=== PATIENT | female | born 1960 | race Caucasian/White ===

== ENCOUNTER 2020-10-30 12:21 | Outpatient (RCR) | payer OTHER, SELFPAY ==
--- NOTE | 2020-10-30 13:41 | PCPTNOTE ---
Patient:Kary Sheridan Date of :1960 Wheelchair seating assessment Thank you [facility]. The patient has been evaluated for power wheelchair seating and recommendations have been made. Armin from [employer] assisted with the recommendations for the necessary DME. The findings have been scanned into the patient's EMR. Please review, sign, date and return this recognition of care provided. I agree with and certify that the following plan for DME equipment is medically necessary. doctor's signature date
== END 2020-10-31 11:04 | disposition home or self-care (01) ==
LOC: ANHPT 12:21
PROVIDERS: PCP Physician Assistant; Visit Provider Physician Assistant
DX: Z74.09 Other reduced mobility (principal); Z91.81 History of falling
CPT/HCPCS: 97163

== ENCOUNTER 2021-01-02 14:38 | Outpatient (CLI) | payer OTHER, SELFPAY ==
--- NOTE | 2021-01-02 18:24 | WPDPFTINT ---
PFT Procedure Performed PFT Procedure Performed Spirometry with Pre/Post Bronchodilator Plethysmography (Lung Vol) Diffusing Cap (DLCO) Flow Vol Loop PFT Interpretation This is a pulmonary function test with pre and post-bronchodilator spirometry, plethysmography and diffusing capacity. The test was performed and results interpreted in accordance with the 2019 and 2005 ATS/ERS Task Force guidelines respectively using the Global Lung Function Initiative-2012 reference equations. Patient demonstrated good effort and cooperation. Reproducibility criteria were met. The quality of the pre bronchodilator spirometry maneuver was Grade A and post bronchodilator spirometry maneuver was Grade A. Findings: Spirometry: There is decreased maximal expiratory airflow at low lung volumes with a mildly concave expiratory flow tracing. The pre bronchodilator FVC is 1.87 L, 55% predicted. The pre bronchodilator FEV1 is 1.46 L, 55% predicted. The FEV1: FVC ratio 78%. The post bronchodilator FVC is 1.74 L, representing a 7% decrease. The post bronchodilator FEV1 is 1.24 L, representing a 15% decrease. Plethysmography: The total lung capacity is 4.41 L, 82% predicted. The functional residual capacity is 2.64 L, 87% predicted. The residual volume is 2.35 L, 112% predicted. Diffusing capacity: The absolute diffusion capacity is 22.4, 100% predicted. The diffusing capacity corrected for alveolar volume is 4.43, 102% predicted. Impression: There is a combined obstructive and restrictive ventilatory abnormality. There are no guidelines to assign the severity of obstruction and restriction with a combined abnormality. In my opinion, given the mildly concave expiratory flow tracing and normal FEV1: FVC ratio and mild restrictive abnormality I would state there is a mild obstructive abnormality and a mild restrictive abnormality resulting in a moderately severe decreased FEV1. There is no significant improvement after inhaling a single dose of albuterol. The diffusing capacity normal. There are no prior studies for comparison
== END 2021-01-02 14:39 | disposition home or self-care (01) ==
LOC: ANHPFT 14:41
PROVIDERS: PCP Physician Assistant; Visit Provider Physician Assistant
DX: Z87.891 Personal history of nicotine dependence (principal); R94.2 Abnormal results of pulmonary function studies
CPT/HCPCS: 94060; 94726; 94729

== ENCOUNTER 2021-10-31 10:00 | Outpatient (RCR) | payer OTHER, SELFPAY ==
--- NOTE | 2021-10-09 11:47 | PTOPEVAL ---
PHYSICAL THERAPY EVALUATION AND PLAN OF CARE 10-09-21 Thank you for referring Kary Sheridan to [facility], for the diagnosis of fibromyalgia and decreased mobility. She is scheduled to be seen for therapy? 2 x/week for 3 weeks. Please review, sign, date and return this plan of care DAMIEN. I agree with and certify that the following plan of care is medically necessary. Referring Physician Date Attending Provider: SANDRA Zheng Past Medical History Source of Past Medical History Patient Neurological History Hx Other Neurological Disorders Yes: multiple falls and hit her head-stated memory not that good anymore Cardiovascular History Hx Hypercholesterolemia Yes: meds Hx Other Cardiac Disorders Yes: heart covered with scar tissue - issues with circulation & lungs Respiratory History Hx COVID-19 Yes: May 2019-severe case, lasted 4 months,cardiac & respiratory residual effects Hx Other Respiratory Disorders Yes: to have surgery for esophagus- due to repeated closing; smoker Gastrointestinal History Hx Diverticulitis Yes Hx Other Gastrointestinal Disorders Yes: colonoscopy every 9-10 months, due to monitor/ removal tumors Musculoskeletal History Hx Arthritis Yes: back, hips, neck Hx Back Pain Yes Hx Fibromyalgia Yes Hx Scoliosis Yes: neck pain Hx Other Musculoskeletal Disorders Yes: neuropathy of legs Endocrine History Hx Diabetes Yes: new diagnosis, working on meds to control Hx Hypothyroidism Yes: meds HEENT History Hx Cataracts Yes: non operable Hx Macular Degeneration Yes: decreased vision Hx Other HEENT Disorders Yes: wear glasses Other History Hx Cancer Yes: uterine cancer--surgery, no radiation or chemo Hx Other Medical Conditions Yes: obesity, gained 40#, in the past 6 months Evaluation Information Diagnosis fibromyalgia with decreased mobility Onset about 3 yrs ago Subjective Information more weakness and falls with Query Text:As Reported By Patient/ COVID, did not see dr due to Family covid restrictions and illness ; in the past 6 months have had falls ~40 x-when stand up, legs weak and cannot stand; when fall, her brother help
--- NOTE | 2021-10-31 10:50 | PTOPEVAL ---
PHYSICAL THERAPY DISCHARGE 10-31-21 Refer to the clinical summary for her status today, compared to the initial evaluation. Discharge PT at this time; she is to continue with her home exercises and walking as tolerated. Thank you for referring Kary Sheridan to [facility] Please review, sign, date and return this discharge report DAMIEN. I agree with and certify that the following plan of care is medically necessary. Referring Physician Date Attending Provider: SANDRA Zheng Subjective Information Kary reports: have more pain Query Text:As Reported By Patient/ in legs since doing therapy-- Family have to take a hydrocodone every day now; since doing therapy strength of legs is better, arms about the same; fell once since starting therapy, with walking, lost foot and fell down; have been doing exercises at home; to have esophagus surgery in January, still choking on food and pills; and need to have hernia repair; Pain Assessment Pain Scale Pain Scale Used Numeric (1 - 10) Self Report Pain Assessment Bilateral Generalized Reported Pain Level 8 Radicular Pain Location feel like someone took a hammer and smashed her legs Pain Frequency Chronic,Continuous Other Pain Description legs hurt- whole leg, front and back of legs Lowest Pain Intensity 6 Greatest Pain Intensity 10 Gross Lower Extremity Strength functional strength testing: perform in sitting: - hip flexion R x 11 /L x 12 reps - knee extension R to (-35') x 7 /L to (- 30') x 11 reps; - shoulder flexion R to 80' x 9 / L to 60' x 10 reps - elbow flexion/extension- full ROM R x 10/ L x 14 reps - sit to stand with B UE use from her motorized, taller height w/c verbal review of HEP, is doing sitting and standing holding onto counter top--reports doing 7 reps; reinforced increase reps as tolerated; Posture Comments sitting in motorized wheel
== END 2021-11-04 10:19 | disposition home or self-care (01) ==
LOC: ANHPT 10:00
PROVIDERS: PCP Physician Assistant; Referring Provider Physician Assistant; Visit Provider Physician Assistant
DX: M79.7 Fibromyalgia (principal)
CPT/HCPCS: 97110; 97112; 97116; 97162

== ENCOUNTER 2021-12-24 20:22 | Emergency (ER) | payer OTHER, SELFPAY ==
--- NOTE | ~2021-12-24 | CT_ITS ---
EXAMINATION: CT abdomen pelvis wo con DATE: 12/24/2021 20:48 INDICATION: abdominal pain TECHNIQUE: Computed tomography (CT) of the abdomen and pelvis was performed without intravenous contr ast. Automated exposure control and iterative reconstruction technique were employed. The dose-length product was 1473.20 mGy-cm. COMPARISON: 05/28/2019. FINDINGS: Lower thorax: Unremarkable. Stable peripheral right dependent lower lobe granuloma. Liver: Enlarged and fatty infiltrated. Biliary/Gallbladder: Gallbladder is normal. No bile duct dilation. Pancreas: No mass or duct dilation. Spleen: Normal. Adrenals:Stable right adrenal adenoma. Kidneys: No mass, stone, or hydronephrosis. GI tract: No small or large bowel dilation. Appendix not visualized. Diverticulosis without diverticu litis. Rectal wall thickening with surrounding inflammatory change. Mesentery/Peritoneum: No ascites, mass, or free air. Retroperitoneum: No mass. Minimal atherosclerotic abdominal aortic and/or arterial calcifications. Pelvis: Uterus is absent. Bladder wall thickening with mild surrounding inflammatory change. Soft Tissues: Fat-containing bilateral inguinal hernias. Bones: No acute osseous finding. IMPRESSION: Bladder wall and rectal inflammatory changes may reflect cystitis and proctitis in the appropriate cl inical context. Hepatomegaly with steatosis. Reviewed, dictated and finalized at location K. IMPRESSION: Bladder wall and rectal inflammatory changes may reflect cystitis and proctitis in the appropriate clinical context. Hepatomegaly with steatosis.
[2021-12-24 20:20] VITALS: PULSE 85; RESP 20; TEMP 37.1; O2SAT 100
[2021-12-24 20:26] VITALS: BP 140/78
--- NOTE | 2021-12-24 20:31 | ECG_ITS ---
Measurements Intervals [place] Rate: 71 P: 20 OR: 181 QRS: -4 QRSD: 88 T: 20 QT: 374 QTc: 407 Interpretive Statements SINUS RHYTHM INCOMPLETE RIGHT BUNDLE BRANCH BLOCK CONSIDER INFERIOR INFARCT, AGE INDETERMINATE BASELINE ARTIFACT- I, III, AVL, V1-V2 ABNORMAL ECG Electronically Signed On 12-24-2021 22:49:36 CDT by Kota Martin D.O.
[2021-12-24] MEDS: fentaNYL CITRATE INJ (*CRX) 100 MCG/2 ML VIAL 25 MCG IV PUSH (20:49)
[2021-12-24] MEDS: ONDANSETRON INJ 4 MG/2 ML VIAL IV PUSH (20:49)
[2021-12-24] MEDS: SODIUM CHLORIDE 0.9% IV 1,000 ML 999 ML IV CONT (20:49)
[2021-12-24 21:06] LABS: Basophils Percent Auto 0.6 % (0.2-1.2); Eosinophils Absolute Auto 0.1 K/mm3 (0-0.3); Eosinophils Percent Auto 1.9 % (0-4.4); Hematocrit 42.8 % (37.0-47.0); Hemoglobin 13.9 g/dL (12.0-15.0); Immature Granulocyte Absolute 0.02 K/mm3 (0.00-0.031); Immature Granulocyte Percent A 0.4 % (0-0.5); Lymphocytes Absolute Auto 1.23 K/mm3 (0.9-3.2); Lymphocytes Percent Auto 23.5 % (18.3-44.2); Mean Corpuscular HGB Conc 32.5 g/dl (32-36); Mean Corpuscular Volume 95.3 fl (80-100); Mean Platelet Volume 9.2 fl (7.4-10.4); Monocytes Absolute Auto 0.3 K/mm3 (0.1-0.6); Monocytes Percent Auto 6.3 % (2.6-8.5); Neutrophils Absolute Auto 3.5 K/mm3 (1.3-6.7); Neutrophils Percent Auto 67.3 % (45.5-73.1); Platelet Count Result 175 k/mm3 (150-375); Red Blood Count 4.49 M/mm3 (4.2-5.4); Red Cell Distribution Width 14.6 % (11.5-14.5); White Blood Count 5.2 K/mm3 (4.5-10.0)
[2021-12-24 21:17] LABS: Lactic Acid Reflex 1.9 mmol/L (0.7-2.0)
[2021-12-24 21:19] LABS: Alanine Aminotransferase 25 U/L (6-35); Albumin Level 3.9 g/dL (3.5-5.1); Alkaline Phosphatase 108 U/L (38-126); Anion Gap 10 mmol/L (8-16); Aspartate Amino Transferase 23 U/L (14-36); Bilirubin,Total 0.5 mg/dL (0.2-1.3); Blood Urea Nitrogen 11 mg/dL (7-17); Calcium 8.3 mg/dL (8.4-10.2); Carbon Dioxide 21 mmol/L (22-30); Chloride 105 mmol/L (98-107); Estimated CRCL calculation 103 ml/min; Estimated Glomerular Filt Rate > 60; Glucose 105 mg/dL (65-110); Lipase 75 U/L (23-300); Potassium 3.7 mmol/L (3.4-5.0); Sodium 136 mmol/L (137-145)
[2021-12-24 21:30] LABS: Troponin I < 0.012 ng/mL (0.000-0.034)
[2021-12-24 21:31] LABS: Appearance Urine Clear (Clear); Bilirubin Urine 1+ (Negative); Blood Urine Trace-lysed (Negative); Glucose Urine UA Negative (Negative); Ketones Urine Trace mg/dL (Negative); Leukocyte Esterase Ur Trace LEU/UL (Negative); Nitrate Urine Positive (Negative); Protein Urine Negative (Negative); Specific Grav Ur >= 1.030 (1.001-1.035); Urobilinogen Urine 0.2 mg/dL (<2.0); pH Urine 5.5 (5.0-9.0)
[2021-12-24 21:35] LABS: Add Urine Microscopic? YES; Color Urine Dark Yellow (Yellow)
[2021-12-24 21:37] LABS: Bacteria Urine Trace /hpf; Mucus Urine Heavy /lpf; RBC Urine 0-2 /hpf (0-2); Squamous Epithelial Cell Urine Rare /hpf (Few)
--- NOTE | 2021-12-24 21:38 | ED.GENADULT ---
HPI - General Adult General Chief complaint: Abdominal Pain Stated complaint: ABD PAIN/CONSTIPATION Time Seen by Provider: 12/24/21 20:26 History of Present Illness HPI narrative: Patient is a 61-year-old female who presents the emergency department with chief complaint of abdominal pain. Patient reports that she has been having some discomfort throughout her abdomen reports that its not worsened by anything nor is it improved by anything patient reports it feels as though she is constipated and reports that she had several enemas today. Patient reports that she had a little bit irritation in her rectal area with a slight amount of blood. Patient denies fever denies chills Related Data Home Medications Medication Instructions Recorded Confirmed oxybutynin chloride 5 mg tablet 5 mg PO DAILY 07/04/19 02/28/20 cyclobenzaprine 10 mg tablet 10 mg PO DAILY 02/28/20 02/28/20 folic acid 1 mg tablet 1 mg PO DAILY 02/28/20 02/28/20 levothyroxine 150 mcg tablet 150 mcg PO DAILY 02/28/20 02/28/20 (Euthyrox) metoprolol tartrate 25 mg tablet 25 mg PO BID 02/28/20 02/28/20 Allergies Allergy/AdvReac Type Severity Reaction Status Date / Time codeine Allergy Unknown Unknown Verified 12/24/21 20:25 morphine Allergy Unknown Unknown Verified 12/24/21 20:25 Penicillins Allergy Unknown Unknown Verified 12/24/21 20:25 Sulfa (Sulfonamide Allergy Unknown Unknown Verified 12/24/21 20:25 Antibiotics) Contrast Media Allergy Unknown VOMITING Uncoded 12/24/21 20:25 Review of Systems Review of Systems: A 10 system review of systems was completed on the patient and is negative except for what is stated in the HPI. Nursing and ancillary documentation was reviewed. [facility] Past Medical History Medical History (Updated 12/24/21 @ 22:14 by Javier Hardin MD) Arthritis Bowel obstruction Celiac disease Diverticulitis Endometriosis Fibromyalgia Gallstones GERD (gastroesophageal reflux disease) History of renal dialysis Hypothyroidism Peripheral neuropathy PUD (peptic ulcer disease) Spinal stenosis Uterine cancer UTI (urinary tract infection) Surgical History Surgical History H/O laparoscopy H/O: hysterectomy History of appendectomy History of History of carpal tunnel surgery Social History Social History Smoking packs per day: 1 Smoking cigarettes per day: 20.0 Years smoked: 47 Smoking pack-years: 47.00 Smoking status: Current every day smoker Tobacco type: cigarettes Alcohol intake: never Exam Narrative: GENERAL: Well-appearing, well-nourished, and in no acute distress. HEAD: Normocephalic, atraumatic. EYES: PERRLA and EOMI. ENT: Nares clear, no rhinorrhea or epistaxis. Mucous membranes moist. NECK: Supple. CHEST: Clear to auscultation. No respiratory distress. HEART: Regular rate and rhythm. No murmur heard. Normal peripheral pulses. ABDOMEN: Soft, nontender, nondistended, normal active bowel sounds. : Patient is guaiac negative and there is no impaction present EXTREMITIES: Normal range of motion. No edema. SKIN: Warm, dry, no rash. NEURO: No focal deficits. Alert and oriented x3. PSYCH: Normal mood and affect. Course Vital Signs Vital signs: Vital Signs Temperature 37.1 C 12/24/21 20:20 Pulse Rate 85 12/24/21 20:20 Respiratory Rate 20 12/24/21 20:20 Pulse Oximetry 100 12/24/21 20:20 Oxygen Delivery Room Air 12/24/21 20:20 Temperature 37.1 C 12/24/21 20:20 Pulse Rate 85 12/24/21 20:20 Respiratory Rate 20 12/24/21 20:20 Blood Pressure 140/78 12/24/21 20:26 Pulse Oximetry 100 12/24/21 20:20 Oxygen Delivery Room Air 12/24/21 20:20 Medical Decision Making Vital Signs Vital Signs: Vital Signs Temperature 37.1 C 12/24/21 20:20 Pulse Rate 85 12/24/21 20:20 Respiratory Rate 20 12/24/21 20:20 P
[2021-12-24] MEDS: CIPROFLOXACIN 500 MG TAB PO (22:36)
[2021-12-24 22:38] VITALS: BP 136/63; PULSE 83; RESP 16; O2SAT 99
== END 2021-12-24 22:51 | disposition home or self-care (01) ==
PROVIDERS: Emergency Provider Emergency Medicine; PCP Physician Assistant
DX: N39.0 Urinary tract infection, site not specified (principal); R10.84 Generalized abdominal pain; K62.89 Other specified diseases of anus and rectum; M19.90 Unspecified osteoarthritis, unspecified site; M79.7 Fibromyalgia; K21.9 Gastro-esophageal reflux disease without esophagitis; E03.9 Hypothyroidism, unspecified; F17.210 Nicotine dependence, cigarettes, uncomplicated
CPT/HCPCS: 36415; 74176; 80053; 81001; 83605; 83690; 84484; 85025; 87077; 87086; 87088; 87186; 93005; 96361; 96374; 96375; 99284; A9270; J2405; J3010; J7030

== ENCOUNTER 2022-01-09 20:07 | Emergency (ER) | payer OTHER, SELFPAY ==
--- NOTE | ~2022-01-09 | XR_ITS ---
EXAMINATION: XR ankle RT min 3V DATE: 01/09/2022 20:48 INDICATION: Right ankle pain post injury TECHNIQUE: Anteroposterior, oblique, mortise, and lateral views of the right ankle were obtained. COMPARISON: None. FINDINGS: Alignment is normal. No fracture. Mild osteoarthritis at the calcaneocuboid joint. Remaining joint s paces are relatively preserved. Small Achilles and plantar calcaneal spurs. No ankle joint effusion. The soft tissues are unremarkable. IMPRESSION: 1. No acute osseous abnormality. Reviewed, dictated and finalized at location A.
--- NOTE | ~2022-01-09 | XR_ITS ---
EXAMINATION: XR hip RT 2V w AP pelvis DATE: 01/09/2022 20:48 INDICATION: Right hip pain post injury TECHNIQUE: Anteroposterior view of the pelvis and anteroposterior and frog-leg lateral views of the r ight hip were obtained. COMPARISON: None. FINDINGS: Alignment is normal. No fracture or suspected avascular necrosis. Bilateral hip joint spaces are norm al. Mild bilateral sacroiliac osteoarthritis. Phlebolith in the left hemipelvis. IMPRESSION: 1. No acute osseous abnormality. Reviewed, dictated and finalized at location A.
--- NOTE | ~2022-01-09 | XR_ITS ---
EXAMINATION: XR knee RT 3V DATE: 01/09/2022 20:48 INDICATION: Right knee pain post injury TECHNIQUE: AP, oblique and crosstable lateral views of the right knee were obtained. COMPARISON: None. FINDINGS: Alignment is normal. No fracture. Joint spaces appear relatively preserved on nonweightbearing imagi ng. No joint effusion/layering lipohemarthrosis. Soft tissues are unremarkable. IMPRESSION: 1. Negative right knee radiographs. Reviewed, dictated and finalized at location A.
[2022-01-09 20:21] VITALS: BP 133/62; PULSE 84; RESP 16; TEMP 36.4; O2SAT 100
[2022-01-09 21:44] VITALS: BP 129/75; PULSE 84; RESP 18; O2SAT 97
--- NOTE | 2022-01-09 22:22 | ED.FALL ---
HPI - Fall General Chief Complaint: Fall Stated Complaint: fall, Right hip pain Time Seen by Provider: 01/09/22 20:57 History of Present Illness HPI Narrative: 61-year-old female with a history of fibromyalgia presents emergency room for evaluation of multiple injuries sustained in a fall that occurred 2 days ago. Patient is normally in a wheelchair, she states that she fell landed on her right side in the bathroom. Patient is typically nonambulatory. Patient is complaining of right hip pain, right knee pain and right ankle pain. Patient typically takes hydrocodone for pain. Related Data Home Medications Medication Instructions Recorded Confirmed oxybutynin chloride 5 mg tablet 5 mg PO DAILY 07/04/19 02/28/20 cyclobenzaprine 10 mg tablet 10 mg PO DAILY 02/28/20 02/28/20 folic acid 1 mg tablet 1 mg PO DAILY 02/28/20 02/28/20 levothyroxine 150 mcg tablet 150 mcg PO DAILY 02/28/20 02/28/20 (Euthyrox) metoprolol tartrate 25 mg tablet 25 mg PO BID 02/28/20 02/28/20 Allergies Allergy/AdvReac Type Severity Reaction Status Date / Time codeine Allergy Unknown Unknown Verified 12/24/21 20:25 morphine Allergy Unknown Unknown Verified 12/24/21 20:25 Penicillins Allergy Unknown Unknown Verified 12/24/21 20:25 Sulfa (Sulfonamide Allergy Unknown Unknown Verified 12/24/21 20:25 Antibiotics) Contrast Media Allergy Unknown VOMITING Uncoded 12/24/21 20:25 Review of Systems Review of Systems: CONSTITUTIONAL: Denies fever, chills, or sweats. EYES: Denies visual changes, redness, or discharge. ENT: Denies rhinorrhea, congestion, sore throat, or otalgia. CARDIOVASCULAR: Denies chest pain, palpitations, or edema. RESPIRATORY: Denies cough or dyspnea. GASTROINTESTINAL: Denies abdominal pain, nausea, vomiting, or diarrhea. GENITOURINARY: Denies dysuria or hematuria. SKIN: Denies rash or itching. MUSCULOSKELETAL: Reports right hip, right knee and right ankle pain NEUROLOGIC: Denies headache, numbness, dizziness, or weakness. PSYCHIATRIC: Denies anxiety or depression. [facility] Past Medical History Medical History (Updated 01/09/22 @ 22:27 by Aleksandar Buitrago APRN) Arthritis Bowel obstruction Celiac disease Diverticulitis Endometriosis Fibromyalgia Gallstones GERD (gastroesophageal reflux disease) History of renal dialysis Hypothyroidism Peripheral neuropathy PUD (peptic ulcer disease) Spinal stenosis Uterine cancer UTI (urinary tract infection) Surgical History Surgical History H/O laparoscopy H/O: hysterectomy History of appendectomy History of History of carpal tunnel surgery Social History Social History Smoking packs per day: 1 Smoking cigarettes per day: 20.0 Years smoked: 47 Smoking pack-years: 47.00 Smoking status: Current every day smoker Tobacco type: cigarettes Alcohol intake: never Exam Narrative: GENERAL: Well-appearing, well-nourished, no physical limitations, and in severe distress. HEAD: Normocephalic, atraumatic. EYES: Conjunctivae normal, PERRLA and EOMI. CHEST: Clear to auscultation. No respiratory distress. No wheezes rales or rhonchi. No tenderness. HEART: Regular rate and rhythm. No murmur heard. Normal peripheral pulses. BACK: No cervical/thoracic/lumbar tenderness, step-offs, bony abnormality; FROM EXTREMITIES: Right hip: Tenderness over the greater trochanter, no ecchymosis no soft tissue swelling no bony abnormality no, full range of motion. Right knee: Diffuse tenderness with no soft tissue swelling ecchymosis or bony abnormality noted. Full range of motion. Right ankle; diffuse tenderness over the lateral malleolus, no soft tissue swelling no ecchymosis full range of motion, no acute bony, neurovascular is intact distally SKIN: Warm, dry, no rash. No noted wounds NEURO: No focal deficits. Alert and oriented x3. MAEW. CN's II-XI intact bilaterally, normal g
[2022-01-09] MEDS: KETOROLAC (*BKC) 60 MG/2 ML VIAL IM (22:35)
== END 2022-01-09 22:56 | disposition home or self-care (01) ==
PROVIDERS: Emergency Provider Nurse Practitioner Family; PCP Physician Assistant
DX: S70.01XA Contusion of right hip, initial encounter (principal); S80.01XA Contusion of right knee, initial encounter; S80.11XA Contusion of right lower leg, initial encounter; M79.7 Fibromyalgia; K90.0 Celiac disease; K21.9 Gastro-esophageal reflux disease without esophagitis; E03.9 Hypothyroidism, unspecified; G62.9 Polyneuropathy, unspecified; M19.90 Unspecified osteoarthritis, unspecified site; Z90.710 Acquired absence of both cervix and uterus; Z87.11 Personal history of peptic ulcer disease; Z85.42 Personal history of malignant neoplasm of other parts of uterus; Z87.440 Personal history of urinary (tract) infections; F17.210 Nicotine dependence, cigarettes, uncomplicated; W19.XXXA Unspecified fall, initial encounter
CPT/HCPCS: 73502; 73562; 73610; 96372; 99284; J1885

== ENCOUNTER 2022-01-22 12:22 | Emergency (ER) | payer OTHER, SELFPAY ==
[2022-01-22] VITALS (32 sets, daily range): BP systolic 72–147; BP diastolic 51–123; PULSE 0–103; RESP 14–24; TEMP 36.7; O2SAT 93–100
--- NOTE | ~2022-01-22 | XR_ITS ---
XR ankle LT min 3V 01/22/2022 12:55 Indication: Left ankle pain Procedure: 4 views left ankle Comparison: No prior studies for comparison. Findings: There is an oblique nondisplaced distal fibular fracture. Mild soft tissue swelling. Ankle mortise intact. Talar dome is normal. Impression: 1: Oblique nondisplaced distal fibular fracture with adjacent soft tissue swelling. Reviewed, dictated and finalized at location B. Impression: 1: Oblique nondisplaced distal fibular fracture with adjacent soft tissue swell ing.
--- NOTE | ~2022-01-22 | XR_ITS ---
XR ankle RT min 3V 01/22/2022 12:55 Indication: Right ankle pain after injury Procedure: 4 views right ankle Comparison: 01/09/2022 Findings: There is anatomic alignment. Ankle mortise intact. No fracture or traumatic malalignment. T alar dome is normal. No significant soft tissue abnormality. Impression: 1: No significant bone or joint abnormality. Reviewed, dictated and finalized at location B. Impression: 1: No significant bone or joint abnormality.
[2022-01-22] MEDS: LORazepam INJ (*CRX) 2 MG/ML VIAL 0.5 MG IV PUSH (12:54)
[2022-01-22 12:56] LABS: Basophils Percent Auto 0.5 % (0.2-1.2); Eosinophils Absolute Auto 0.1 K/mm3 (0-0.3); Eosinophils Percent Auto 2.3 % (0-4.4); Hematocrit 47.5 % (37.0-47.0); Hemoglobin 15.6 g/dL (12.0-15.0); Immature Granulocyte Absolute 0.03 K/mm3 (0.00-0.031); Immature Granulocyte Percent A 0.5 % (0-0.5); Lymphocytes Absolute Auto 1.11 K/mm3 (0.9-3.2); Lymphocytes Percent Auto 18.6 % (18.3-44.2); Mean Corpuscular HGB Conc 32.8 g/dl (32-36); Mean Corpuscular Hemoglobin 31.7 pg (26-34); Mean Corpuscular Volume 96.5 fl (80-100); Mean Platelet Volume 9.4 fl (7.4-10.4); Monocytes Absolute Auto 0.3 K/mm3 (0.1-0.6); Monocytes Percent Auto 5.2 % (2.6-8.5); Neutrophils Absolute Auto 4.4 K/mm3 (1.3-6.7); Neutrophils Percent Auto 72.9 % (45.5-73.1); Platelet Count Result 225 k/mm3 (150-375); Red Blood Count 4.92 M/mm3 (4.2-5.4); Red Cell Distribution Width 14.7 % (11.5-14.5)
[2022-01-22 13:06] LABS: Alanine Aminotransferase 66 U/L (6-35); Albumin Level 4.6 g/dL (3.5-5.1); Alkaline Phosphatase 104 U/L (38-126); Anion Gap 12 mmol/L (8-16); Aspartate Amino Transferase 39 U/L (14-36); Bilirubin,Total 0.6 mg/dL (0.2-1.3); Blood Urea Nitrogen 12 mg/dL (7-17); Carbon Dioxide 23 mmol/L (22-30); Chloride 96 mmol/L (98-107); Estimated CRCL calculation 121 ml/min; Estimated Glomerular Filt Rate > 60; Glucose 135 mg/dL (65-110); Potassium 5.1 mmol/L (3.4-5.0); Sodium 131 mmol/L (137-145)
--- NOTE | 2022-01-22 14:32 | PC.NURSE ---
Spoke with Debora Payne, pt PAs, updated her on pt POC and d/c planning. PA informed that they will set up f/o with ortho and pt is to be seen in primary's office next . Updated on pt mental status as well.
--- NOTE | 2022-01-22 15:00 | ED.LOWEXIN ---
HPI - Extremity Injury (Lower) General Chief Complaint: Extremity Injury, Lower Stated Complaint: left foot injury Time Seen by Provider: 01/22/22 12:27 Source: patient and family Mode of arrival: EMS Limitations: no limitations History of Present Illness HPI Narrative: 61-year-old with a history of fibromyalgia, peripheral neuropathy, anxiety disorder, here with complaints of left ankle pain. Patient states that while she was walking her knees buckled up and landed on her both ankles now complaining of left ankle pain. complaint: fall Onset (ago): hour(s) (1) Injury: Right: ankle Type of Injury: inversion Place: home Severity: severe Relieving factors: nothing Exacerbating factors: nothing Context: fall Other symptoms: none Related Data Home Medications Medication Instructions Recorded Confirmed oxybutynin chloride 5 mg tablet 5 mg PO DAILY 07/04/19 02/28/20 cyclobenzaprine 10 mg tablet 10 mg PO DAILY 02/28/20 02/28/20 folic acid 1 mg tablet 1 mg PO DAILY 02/28/20 02/28/20 levothyroxine 150 mcg tablet 150 mcg PO DAILY 02/28/20 02/28/20 (Euthyrox) metoprolol tartrate 25 mg tablet 25 mg PO BID 02/28/20 02/28/20 Allergies Allergy/AdvReac Type Severity Reaction Status Date / Time codeine Allergy Unknown Unknown Verified 12/24/21 20:25 morphine Allergy Unknown Unknown Verified 12/24/21 20:25 Penicillins Allergy Unknown Unknown Verified 12/24/21 20:25 Sulfa (Sulfonamide Allergy Unknown Unknown Verified 12/24/21 20:25 Antibiotics) Contrast Media Allergy Unknown VOMITING Uncoded 12/24/21 20:25 Review of Systems Review of Systems: All systems reviewed & are unremarkable except as noted in HPI and below Constitutional: Constitutional: Reports no additional constitutional complaints Eyes: Eyes: Reports no additional eye complaints ENT: Reports system reviewed and no additional complaints, except as documented Cardiovascular: Cardiovascular: Reports no additional cardiovascular complaints Respiratory: Respiratory: Reports no additional respiratory complaints Gastrointestinal: Gastrointestinal: Reports no additional gastrointestinal complaints Musculoskeletal: Musculoskeletal: Reports as per HPI Neurologic: Reports system reviewed and no additional complaints, except as documented [facility] Past Medical History Medical History (Updated 01/22/22 @ 15:07 by Alexei Valladares MD) Arthritis Bowel obstruction Celiac disease Diverticulitis Endometriosis Fibromyalgia Gallstones GERD (gastroesophageal reflux disease) History of renal dialysis Hypothyroidism Peripheral neuropathy PUD (peptic ulcer disease) Spinal stenosis Uterine cancer UTI (urinary tract infection) Surgical History Surgical History H/O laparoscopy H/O: hysterectomy History of appendectomy History of History of carpal tunnel surgery Social History Social History Smoking packs per day: 1 Smoking cigarettes per day: 20.0 Years smoked: 47 Smoking pack-years: 47.00 Smoking status: Current every day smoker Tobacco type: cigarettes Alcohol intake: never Exam Narrative: GENERAL: Well-appearing, well-nourished, and in no acute distress. Crying loudly HEAD: Normocephalic, atraumatic. EYES: PERRLA and EOMI. NECK: Supple. CHEST: Clear to auscultation. No respiratory distress. HEART: Regular rate and rhythm. No murmur heard. Normal peripheral pulses. ABDOMEN: Soft, nontender, nondistended, normal active bowel sounds. EXTREMITIES: Normal range of motion. No edema. Mild soft tissue swelling noted around the left ankle the right ankle appears to be normal SKIN: Warm, dry, no rash. NEURO: No focal deficits. Alert and oriented x3. PSYCH: Normal mood and affect. Course Course Emergency Course: Patient still crying loudly when you distract her and she stops crying. Informed her about the x-ray and lab wor
--- NOTE | 2022-01-22 15:14 | PC.NURSE ---
Spoke with Pt and brother after speaking with pt PA. Updated them on the POC and educated them on helping reduce anxiety to help reduce perceived pain in pt. Pt verbalized understanding and denied any questions at this time. Pt still writhing in bed and crying uncontrollably at this time.
== END 2022-01-22 17:00 | disposition home or self-care (01) ==
PROVIDERS: Emergency Provider Family Medicine; PCP Physician Assistant
DX: S82.832A Other fracture of upper and lower end of left fibula, initial encounter for closed fracture (principal); S99.911A Unspecified injury of right ankle, initial encounter; E03.9 Hypothyroidism, unspecified; K90.0 Celiac disease; N80.9 Endometriosis, unspecified; M79.7 Fibromyalgia; M19.90 Unspecified osteoarthritis, unspecified site; K21.9 Gastro-esophageal reflux disease without esophagitis; G62.9 Polyneuropathy, unspecified; F41.9 Anxiety disorder, unspecified; Z85.42 Personal history of malignant neoplasm of other parts of uterus; Z87.11 Personal history of peptic ulcer disease; Z87.440 Personal history of urinary (tract) infections; Z90.710 Acquired absence of both cervix and uterus; F17.210 Nicotine dependence, cigarettes, uncomplicated; W18.39XA Other fall on same level, initial encounter
CPT/HCPCS: 29515; 36415; 73610; 80053; 85025; 99284; J2060

== ENCOUNTER 2022-01-28 14:33 | Outpatient (CLI) | payer OTHER, SELFPAY ==
--- NOTE | ~2022-01-28 | US_ITS ---
EXAMINATION: US art doppler w press LE BI DATE: 01/28/2022 15:21 INDICATION: Bilateral lower limb pain TECHNIQUE: Segmental pressures and plethysmographic and Doppler waveforms of the brachial and lower e xtremity arteries were obtained. COMPARISON: None. FINDINGS: Right and left brachial artery pressures of 147 mm Hg and 132 mm Hg, respectively, are concordant (no rmal difference <= 30 mmHg). The right and left high-thigh pressure indices are 1.12 and 1.19, respec tively (normal > 1.2). The right ankle-brachial index (JASMYNE) is 0.95 (normal >= 0.9-1). The right great toe-brachial index (T BI) is 0.75 (normal >= 0.6-0.8). The right lower extremity segmental pressure gradients are increased between the right above and ihnuk-vzn-ljue popliteal arteries as well as between the right posterior tibial artery and each of the right nqfcx-lqu-kdho popliteal, right dorsalis pedis and contralateral left posterior tibial arteries (normal gradients <= 20-30 mmHg between adjacent levels on the same l eg or the same levels on the two legs). Arterial waveforms are triphasic at the right common femoral and superficial femoral arteries and biphasic at the right popliteal, posterior tibial and dorsalis p lulu arteries, all with brisk systolic upstrokes. The left JASMYNE is 0.97. The left TBI is 0.69. The left lower extremity segmental pressure gradients are increased between the left dorsalis pedis artery and each of the left iypko-efw-kakx popliteal, left posterior tibial and contralateral right dorsalis pedis arteries. Arterial waveforms are triphasic a t the left common femoral and biphasic at the more distal arteries with brisk systolic upstrokes thro ughout. IMPRESSION: 1. No significant arterial occlusive disease with normal bilateral ABIs and TBIs. Reviewed, dictated and finalized at location A. IMPRESSION: 1. No significant arterial occlusive disease with normal bilateral ABIs and TBI s.
--- NOTE | ~2022-01-28 | XR_ITS ---
EXAMINATION:XR cervical spine 4-5V DATE: 01/28/2022 15:51 INDICATION: Neck pain TECHNIQUE: AP, lateral, lateral swimmers and odontoid views of the cervical spine are provided. COMPARISON: None FINDINGS: Alignment is normal. The odontoid is intact. No fracture is identified. Vertebral body heig hts and disk spaces are normal. Prevertebral soft tissues are normal. Small degenerative osteophytes project from the anterior endplates of multiple vertebral bodies. There is mild facet and uncovertebr al joint osteoarthritis. IMPRESSION: 1. Mild cervical spondylosis without acute findings. Reviewed, dictated and finalized at location B.
--- NOTE | ~2022-01-28 | XR_ITS ---
EXAMINATION: XR lumbar spine 2-3V DATE: 01/28/2022 15:51 INDICATION: Bilateral lower limb pain TECHNIQUE: Anteroposterior and lateral views of the lumbar spine, and cone-down lateral view of the l umbosacral junction were obtained. COMPARISON: None. FINDINGS: There is no fracture, dislocation, or subluxation. The vertebral body heights are normal. T here is mild loss of intervertebral disc space height at L1-2 and L5-S1. There is moderate facet oste oarthritis of the lower lumbar spine. IMPRESSION: 1. Mild lumbar spondylosis without acute findings. Reviewed, dictated and finalized at location B.
== END 2022-01-28 14:34 | disposition home or self-care (01) ==
PROVIDERS: PCP Physician Assistant; Visit Provider Physician Assistant
DX: M79.604 Pain in right leg (principal); M47.896 Other spondylosis, lumbar region; M47.892 Other spondylosis, cervical region
CPT/HCPCS: 72050; 72100; 93923

== ENCOUNTER 2022-03-20 18:25 | Emergency (ER) | payer OTHER, SELFPAY ==
[2022-03-20] VITALS (7 sets, daily range): BP systolic 130–153; BP diastolic 99–104; PULSE 84–122; RESP 14–24; TEMP 36.7; O2SAT 95–97
--- NOTE | ~2022-03-20 | NM_ITS ---
EXAMINATION: NM pulmonary perfusion DATE: 03/20/2022 22:19 INDICATION: Shortness of breath and tachycardia TECHNIQUE: 5.3 mCi Tc-99m MAA was administered intravenously for perfusion images. Scintigraphic daly ges of the chest were obtained. COMPARISON: None FINDINGS: Perfusion images show normal perfusion. IMPRESSION: 1. Low probability for pulmonary embolism. Reviewed, dictated and finalized at location F.
--- NOTE | ~2022-03-20 | XR_ITS ---
EXAMINATION: XR chest 1V portable INDICATION: Shortness of breath TECHNIQUE: Portable AP chest at 0725 hours COMPARISON: 08/11/2014 FINDINGS: The lungs are free of acute opacities. No pleural effusion or pneumothorax. The cardiomedia stinal silhouette is normal. IMPRESSION: 1. No acute cardiopulmonary abnormality. Reviewed, dictated and finalized at location F.
--- NOTE | 2022-03-20 18:35 | ECG_ITS ---
Measurements Intervals [place] Rate: 110 P: 21 MD: 140 QRS: -24 QRSD: 79 T: 84 QT: 331 QTc: 449 Interpretive Statements SINUS TACHYCARDIA BASELINE ARTIFACT VOLTAGE CRITERIA FOR LVH [MEETS CRITERIA IN ONE OF: R(aVL), S(V1), R(V5), R(V5/V6)+S(V1)] INFERIOR MYOCARDIAL INFARCTION , PROBABLY OLD LATERAL ST AND T-WAVE ABNORMALITY, CONSIDER ISCHEMIA ABNORMAL ECG COMPARED TO ECG 12/24/2021 20:56:22 HEART RATE HAS INCREASED ST CHANGES ARE NEW Electronically Signed On 03-21-2022 15:08:00 CDT by Alexandru Tristan M.D.
--- NOTE | 2022-03-20 18:43 | ED.SOB ---
HPI - SOB/Dyspnea General Chief Complaint: Shortness of Breath/Dyspnea <Lizzy Townsend PA-C - Last Filed: 03/20/22 22:22> Stated Complaint: ENRIKE <Lizzy Townsend PA-C - Last Filed: 03/20/22 22:22> Time Seen by Provider: 03/20/22 18:36 <Lizzy Townsend PA-C - Last Filed: 03/20/22 22:22> History of Present Illness HPI Narrative: 61-year-old female with a history of COPD here for evaluation of dyspnea on exertion for the past day. Patient states that yesterday she was coughing and feeling unwell, but today she woke up and was feeling very short of breath, increased from her baseline. She attempted her albuterol inhalation without significant relief. Patient does not provide much history, most of story obtained from patient's . Agrees that she has been SOB x 1 day, which is new for her. He tells me that she had a bad reaction to Ozempic back in December of this year, experienced limb weakness, inability to control her limbs. for this she was admitted to [facility] for a week, and then [facility] for a week. Patient's tells me that the neurologist were stumped , and did not have any etiology for patient's symptoms. 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 They have been following up with neurology at [facility] as an outpatient and have an appointment next week. <Lizzy Townsend PA-C - Last Filed: 03/20/22 22:22> Related Data Home Medications: Home Medications Medication Instructions Recorded Confirmed oxybutynin chloride 5 mg tablet 5 mg PO DAILY 07/04/19 01/27/22 cyclobenzaprine 10 mg tablet 10 mg PO DAILY 02/28/20 01/27/22 folic acid 1 mg tablet 1 mg PO DAILY 02/28/20 01/27/22 levothyroxine 150 mcg tablet 150 mcg PO DAILY 02/28/20 01/27/22 (Euthyrox) metoprolol tartrate 25 mg tablet 25 mg PO BID 02/28/20 01/27/22 <Lizzy Townsend PA-C - Last Filed: 03/20/22 22:22> Allergies/Adverse Reactions: Allergies Allergy/AdvReac Type Severity Reaction Status Date / Time codeine Allergy Unknown Unknown Verified 01/27/22 13:09 morphine Allergy Unknown Unknown Verified 01/27/22 13:09 Penicillins Allergy Unknown Unknown Verified 01/27/22 13:09 Sulfa (Sulfonamide Allergy Unknown Unknown Verified 01/27/22 13:09 Antibiotics) Contrast Media Allergy Unknown VOMITING Uncoded 01/27/22 13:09 <Lizzy Townsend PA-C - Last Filed: 03/20/22 22:22> Review of Systems Review of Systems: Gen: Denies fevers or chills Eyes: Denies eye pain or visual change ENT: Denies congestion Respiratory: Reports shortness of breath and cough. CV: Denies chest pain or palpitations GI: Denies abdominal pain nausea, emesis or diarrhea : denies burning, urgency, frequency or hematuria Musculoskeletal: Denies back pain or muscle pain Neuro: Denies numbness, tingling, weakness or focal weakness Skin: Denies rash Except as documented, all other systems reviewed and negative <Lizzy Townsend PA-C - Last Filed: 03/20/22 22:22> [facility] Past Medical History Medical History: Medical History Acquired hypothyroidism Arthritis Blindness Bowel obstruction Celiac disease Chronic low back pain with sciatica Chronic pain syndrome COPD (chronic obstructive pulmonary disease) Diverticulitis Diverticulitis Encounter for screening for lipoid disorders Encounter for screening for other metabolic disorders Endometriosis Fall Fibromyalgia Fibromyalgia Gallstones GERD (gastroesophageal reflux disease) History of anesthesia problem History of renal dialysis Hoarseness of voice Hypothyroidism Kidney disease Lumbar stenosis with neurogenic claudication Nausea Numbness in both hands Other chronic pain Pain in left hand Peripheral neuropathy Polyneuropathy PUD (peptic ulcer disease) Skin lesi
[2022-03-20 18:44] LABS: Basophils Percent Auto 0.2 % (0.2-1.2); Eosinophils Absolute Auto 0.1 K/mm3 (0-0.3); Eosinophils Percent Auto 0.6 % (0-4.4); Hematocrit 48.1 % (37.0-47.0); Hemoglobin 16.1 g/dL (12.0-15.0); Immature Granulocyte Absolute 0.05 K/mm3 (0.00-0.031); Immature Granulocyte Percent A 0.6 % (0-0.5); Lymphocytes Absolute Auto 1.84 K/mm3 (0.9-3.2); Lymphocytes Percent Auto 21.3 % (18.3-44.2); Mean Corpuscular HGB Conc 33.5 g/dl (32-36); Mean Corpuscular Hemoglobin 31.6 pg (26-34); Mean Corpuscular Volume 94.5 fl (80-100); Monocytes Absolute Auto 0.5 K/mm3 (0.1-0.6); Monocytes Percent Auto 5.7 % (2.6-8.5); Neutrophils Absolute Auto 6.2 K/mm3 (1.3-6.7); Neutrophils Percent Auto 71.6 % (45.5-73.1); Platelet Count Result 290 k/mm3 (150-375); Red Blood Count 5.09 M/mm3 (4.2-5.4); Red Cell Distribution Width 16.1 % (11.5-14.5); White Blood Count 8.6 K/mm3 (4.5-10.0)
[2022-03-20 18:56] LABS: Albumin Level 4.3 g/dL (3.5-5.1); Alkaline Phosphatase 125 U/L (38-126); Anion Gap 11 mmol/L (8-16); Aspartate Amino Transferase 41 U/L (14-36); Bilirubin,Total 0.9 mg/dL (0.2-1.3); Blood Urea Nitrogen 9 mg/dL (7-17); Calcium 8.8 mg/dL (8.4-10.2); Carbon Dioxide 24 mmol/L (22-30); Chloride 105 mmol/L (98-107); Estimated CRCL calculation 106 ml/min; Estimated Glomerular Filt Rate > 60; Glucose 113 mg/dL (65-110); Sodium 140 mmol/L (137-145)
[2022-03-20] MEDS: ALBUTEROL SULFATE NEB 2.5 MG/3 ML INH 5 MG INHALATION (19:01)
[2022-03-20 19:06] LABS: Alanine Aminotransferase 68 U/L (6-35)
--- NOTE | 2022-03-20 19:07 | PC.NURSE ---
Report received from MADDI Arauz. Assumed care of patient at this time.
[2022-03-20 19:27] LABS: NT Pro B Type Natriuretic Pept 263 pg/mL (5-100); Troponin I < 0.012 ng/mL (0.000-0.034)
[2022-03-20 19:29] LABS: INR 0.9; Partial Thromboplastin Time 23.7 SECONDS (22.3-36.8); Prothrombin Time 12.1 Seconds (11.1-14.7)
[2022-03-20 19:49] LABS: Fractional Inspired Oxygen 21 %; HCO3 VBG 24.8 mEq/l (24.0-30.0); PCO2 VBG 33.4 mmHg (42.0-48.0); PO2 VBG 42.2 mmHg (35.0-45.0)
[2022-03-20 19:52] LABS: Device ROOM AIR; pH VBG 7.489 (7.300-7.400)
[2022-03-20 20:01] LABS: Magnesium 2.1 mg/dL (1.6-2.3)
[2022-03-20 20:05] LABS: D Dimer 0.72 ug/mL (<0.48)
[2022-03-20] MEDS: SODIUM CHLORIDE 0.9% IV 1,000 ML 999 ML IV CONT (20:23)
[2022-03-20] MEDS: methylPREDNISolone SOD SUCC 125 MG VIAL IV PUSH (20:23)
[2022-03-20 20:52] LABS: Influenza A QL RT-PCR Negative (Negative); Influenza B QL RT-PCR Negative (Negative); SARS-CoV-2 RNA PCR Negative
--- NOTE | 2022-03-20 22:02 | PC.NURSE ---
Patient in VQ scan at this time.
--- NOTE | 2022-03-20 22:49 | ED.SOB ---
HPI - SOB/Dyspnea General Chief Complaint: Shortness of Breath/Dyspnea Stated Complaint: ENRIKE Time Seen by Provider: 03/20/22 18:36 Related Data Home Medications Medication Instructions Recorded Confirmed oxybutynin chloride 5 mg tablet 5 mg PO DAILY 07/04/19 01/27/22 cyclobenzaprine 10 mg tablet 10 mg PO DAILY 02/28/20 01/27/22 folic acid 1 mg tablet 1 mg PO DAILY 02/28/20 01/27/22 levothyroxine 150 mcg tablet 150 mcg PO DAILY 02/28/20 01/27/22 (Euthyrox) metoprolol tartrate 25 mg tablet 25 mg PO BID 02/28/20 01/27/22 Allergies Allergy/AdvReac Type Severity Reaction Status Date / Time codeine Allergy Unknown Unknown Verified 01/27/22 13:09 morphine Allergy Unknown Unknown Verified 01/27/22 13:09 Penicillins Allergy Unknown Unknown Verified 01/27/22 13:09 Sulfa (Sulfonamide Allergy Unknown Unknown Verified 01/27/22 13:09 Antibiotics) Contrast Media Allergy Unknown VOMITING Uncoded 01/27/22 13:09 [facility] Past Medical History Medical History Acquired hypothyroidism Arthritis Blindness Bowel obstruction Celiac disease Chronic low back pain with sciatica Chronic pain syndrome COPD (chronic obstructive pulmonary disease) Diverticulitis Diverticulitis Encounter for screening for lipoid disorders Encounter for screening for other metabolic disorders Endometriosis Fall Fibromyalgia Fibromyalgia Gallstones GERD (gastroesophageal reflux disease) History of anesthesia problem History of renal dialysis Hoarseness of voice Hypothyroidism Kidney disease Lumbar stenosis with neurogenic claudication Nausea Numbness in both hands Other chronic pain Pain in left hand Peripheral neuropathy Polyneuropathy PUD (peptic ulcer disease) Skin lesion Spinal stenosis Tobacco use Trigger finger, left ring finger Uses walker Uterine cancer UTI (urinary tract infection) UTI (urinary tract infection), bacterial Wears glasses Surgical History Surgical History H/O laparoscopy H/O: hysterectomy History of appendectomy History of History of carpal tunnel surgery Family History Family History (Updated 01/27/22 @ 16:06 by Marielena Velazquez) Other Arthritis Diabetes mellitus Heart disease Hypertension Lung disease Social History Social History (Updated 01/27/22 @ 16:06 by Marielena Velazquez) Smoking packs per day: 1 Smoking cigarettes per day: 20.0 Years smoked: 47 Smoking pack-years: 47.00 Smoking status: Current every day smoker Tobacco type: cigarettes Alcohol intake: never Substance use type: does not use Gender identity (if verbalized by the patient): Female Course Vital Signs Vital signs: Vital Signs Temperature 98.0 F 03/20/22 18:28 Pulse Rate 113 H 03/20/22 18:28 Respiratory Rate 24 H 03/20/22 18:28 Blood Pressure 153/99 H 03/20/22 18:28 Pulse Oximetry 96 03/20/22 18:28 Oxygen Delivery Room Air 03/20/22 18:28 Temperature 98.0 F 03/20/22 18:28 Pulse Rate 122 H 03/20/22 19:53 Respiratory Rate 19 03/20/22 19:53 Blood Pressure 153/99 H 03/20/22 18:28 Pulse Oximetry 95 03/20/22 19:37 Oxygen Delivery Room Air 03/20/22 19:37 MDM - SOB/Dyspnea Lab Data Result diagrams: 03/20/22 18:37 03/20/22 18:37 Labs: Lab Results 03/20/22 03/20/22 03/20/22 Range/Units 18:37 18:37 18:37 WBC 8.6 (4.5-10.0) K/mm3 RBC 5.09 (4.2-5.4) M/mm3 Hgb 16.1 H (12.0-15.0) g/dL Hct 48.1 H (37.0-47.0) % MCV 94.5 (80-100) fl MCH 31.6 (26-34) pg MCHC 33.5 (32-36) g/dl RDW 16.1 H (11.5-14.5) % Plt Count 290 (150-375) k/mm3 MPV 9.0 (7.4-10.4) fl Immature Gran % (Auto) 0.6 H (0-0.5) % Neut % (Auto) 71.6 (45.5-73.1) % Lymph % (Auto) 21.3 (18.3-44.2) % [place] % (Auto) 5.7 (2.6-8.5) % Eos % (Auto) 0.6 (0-4.4) % Baso % (Au
[2022-03-20 23:05] LABS: Troponin I < 0.012 ng/mL (0.000-0.034)
[2022-03-21] VITALS (13 sets, daily range): BP systolic 115–174; BP diastolic 75–108; PULSE 82–95; RESP 12–20; O2SAT 97
--- NOTE | 2022-03-21 01:33 | PC.NURSE ---
Patients visitor came to this RN and requested to give patient her home pain medication. Informed PA, she stated that was okay. Patient informed it is okay to take her home pain meds at this time.
--- NOTE | 2022-03-21 02:31 | PC.NURSE ---
EMS here to take patient back home.
== END 2022-03-21 02:32 | disposition home or self-care (01) ==
PROVIDERS: Physician Assistant; Emergency Provider Emergency Medicine; PCP Physician Assistant
DX: J44.1 Chronic obstructive pulmonary disease with (acute) exacerbation (principal); E03.9 Hypothyroidism, unspecified; G62.9 Polyneuropathy, unspecified; M79.7 Fibromyalgia; K21.9 Gastro-esophageal reflux disease without esophagitis; F17.210 Nicotine dependence, cigarettes, uncomplicated; Z20.822 Contact with and (suspected) exposure to COVID-19
CPT/HCPCS: 36415; 36600; 71045; 78580; 80053; 82803; 82805; 83735; 83880; 84484; 85025; 85380; 85610; 85730; 87502; 93005; 94640; 96361; 96374; 99284; A9540; C9803; J2930; J7030; U0003; U0005

== ENCOUNTER 2022-04-11 17:24 | Inpatient (IN) | payer OTHER, SELFPAY ==
[2022-04-11] VITALS (19 sets, daily range): BP systolic 129–142; BP diastolic 94–105; PULSE 85–103; RESP 12–20; TEMP 36.7–37; O2SAT 95–98; BMI 26.5
--- NOTE | ~2022-04-11 | MR_ITS ---
EXAMINATION: MR brain/brain stem wo con DATE: 04/19/2022 15:35 INDICATION: Dysphagia. TECHNIQUE: Magnetic resonance imaging (MRI) of the brain and brainstem was performed without intraven ous contrast. COMPARISON: Brain MRI 04/30/2017, head CT 04/15/2022 FINDINGS: There are scattered areas of nonspecific increased T2-weighted signal intensity in the cere bral white matter, which is within normal limits for the patient's age. There is no intracranial hemo rrhage, acute infarction, or abnormal intracranial mass lesion. The ventricles are normal in size. Th ere is mucosal thickening in the paranasal sinuses including a mucous retention cyst in right maxilla ry sinus. The orbits are normal. The mastoid air cells are normal. IMPRESSION: 1. Normal aging brain. Reviewed, dictated and finalized at location E. CTOR OF PERSONNEL IMPRESSION: 1. Normal aging brain.
--- NOTE | ~2022-04-11 | XR_ITS ---
EXAMINATION: XR barium swallow DATE: 04/13/2022 17:03 INDICATION: Dysphagia. TECHNIQUE: The patient drank thin barium. Fluoroscopy of the hypopharynx and esophagus was performed. Fluoroscopy exposure time was 1.2 minutes. The total number of images was 268. The dose-area product was 4.355 Gy-cm^2. COMPARISON: CT abdomen and pelvis 12/24/2021 FINDINGS: There is no mass or stricture of the esophagus. There is decreased primary and secondary es ophageal peristalsis. No abnormal tertiary waves. There is no hiatal hernia. IMPRESSION: 1. Moderate esophageal dysmotility. Reviewed, dictated and finalized at location A. COACH
--- NOTE | ~2022-04-11 | XR_ITS ---
EXAMINATION: XR fl Dobhoff insert/rad w img DATE: 04/28/2022 08:21 INDICATION: Aspiration. TECHNIQUE: I placed a nasoenteric tube with fluoroscopic guidance. Fluoroscopy the time was 0.5 minut es. The number of images was 2. COMPARISON: None. FINDINGS: The nasoenteric tube tip is in the stomach. IMPRESSION: 1. Fluoroscopy guided nasoenteric tube placement with tip in the stomach. Reviewed, dictated and finalized at location A. ING ROLL OPERATOR
--- NOTE | ~2022-04-11 | XR_ITS ---
EXAMINATION: XR chest 1V portable Exam Date/Time: 04/11/2022 17:38 CDT HISTORY: cough Comparison: 03/20/2022. RESULT: Lines, tubes, and devices: None. Lungs and pleura: Right basilar atelectasis, otherwise clear. Cardiomediastinal silhouette: Stable. Other: No acute osseous or upper abdominal finding. IMPRESSION: No acute cardiopulmonary process. Reviewed, dictated and finalized at location K.
--- NOTE | ~2022-04-11 | XR_ITS ---
MODIFIED ESOPHAGRAM HISTORY: Witnessed choking episode TECHNIQUE: Modified barium esophagram was performed on 04/29/2022. I administered fluoroscopy and per formed the exam with speech pathologist. Patient was seated for lateral fluoroscopic imaging for ing estion of thin liquids, pudding, solids and quantified amounts, followed by thin liquids in uncontrol led amounts. This was recorded on tape. A single fluoroscopic spot image was also recorded. The DAP f or this procedure was 1.542 Gycm2. The amount of fluoroscopy time used during this procedure was 2.3 minutes. FINDINGS: Oral stage: Adequate function. Pharyngeal stage: Laryngeal penetration without aspiration with thin liquids.. Cervical/esophageal stage: Adequate function. IMPRESSION: Laryngeal penetration without aspiration with thin liquids. Please correlate with speech pathologist findings and specific feeding recommendations. Reviewed, dictated and finalized at location A. ATRY ASSISTANT IMPRESSION: Laryngeal penetration without aspiration with thin liquids. Please correlate with speech pathologist findings and specific feeding recommendation s.
--- NOTE | ~2022-04-11 | XR_ITS ---
EXAMINATION: XR fl Dobhoff insert/rad w img DATE: 04/16/2022 11:58 INDICATION: Dobbhoff placement TECHNIQUE: A Dobbhoff type feeding tube was advanced into the duodenum utilizing intermittent fluoroscopy. Final image demonstrates the feeding tube in position with the weighted tip at the junction of the second and third portions of duodenum. The tube was flushed with 10 mL sterile saline and fixed to the nares with adhesive tape. A single fluoroscopic image was recorded. The amount of fluoroscopy time used du ring this procedure was 1.8 minutes. There were no immediate complications. FINDINGS/IMPRESSION: Successful fluoroscopy-guided Dobbhoff feeding tube placement with distal tip at the junction of the second and third portions of the duodenum portion of the duodenum. Reviewed, dictated and finalized at location A. ZONTAL BORING MILL SET UP OPERATOR
--- NOTE | ~2022-04-11 | CT_ITS ---
EXAMINATION: CT brain wo con DATE: 04/15/2022 13:24 INDICATION: Dysphagia. TECHNIQUE: Computed tomography (CT) of the head was performed without intravenous contrast. The mA wa s adjusted according to patient size. Iterative reconstruction technique was employed. The dose-lengt h product was 605.33 mGy-cm. COMPARISON: Head CT 09/27/2016 FINDINGS: There are scattered areas of low attenuation in the cerebral white matter, which is within normal limits for the patient's age. There is no intracranial hemorrhage, acute infarction, or abnorm al intracranial mass lesion. The ventricles are normal in size. The orbits are normal. There is mucos al thickening in the paranasal sinuses. The mastoid air cells are normal. IMPRESSION: 1. Normal aging brain. Reviewed, dictated and finalized at location A. ORIC SITES REGISTRAR IMPRESSION: 1. Normal aging brain.
--- NOTE | ~2022-04-11 | XR_ITS ---
EXAMINATION: XR barium swallow modified DATE: 04/15/2022 09:29 INDICATION: Cough while swallowing. TECHNIQUE: The patient was given barium-containing material of multiple consistencies to swallow by t ramón speech pathologist while I performed fluoroscopy. Fluoroscopy exposure time was 0.6 minutes. The n umber of fluoroscopy images saved to the PACS was 1. Dose-area product was 0.415 Gy-cm^2. FINDINGS: There is reduced laryngeal elevation, reduced laryngeal adduction, and reduced tongue base retraction . There was laryngeal penetration. There was aspiration of thin liquids and pudding. IMPRESSION: 1. Aspiration of thin liquids and pudding. 2. Please refer to the speech therapy report for recommendations. Reviewed, dictated and finalized at location A. RIAL CONTROL ANALYST
--- NOTE | ~2022-04-11 | XR_ITS ---
EXAMINATION: XR fl Dobhoff insert/rad w img DATE: 04/24/2022 08:35 INDICATION: Dysphagia. TECHNIQUE: I placed a nasoenteric tube with fluoroscopic guidance. Fluoroscopy exposure time was 0.3 minutes. The number of images was 1. COMPARISON: None. FINDINGS: The nasoenteric tube tip is in the stomach. IMPRESSION: 1. Fluoroscopy guided nasoenteric tube placement with tip in the stomach. Reviewed, dictated and finalized at location A. F ENGINEER RESEARCH
--- NOTE | 2022-04-11 17:27 | ECG_ITS ---
Measurements Intervals [place] Rate: 97 P: 28 WI: 153 QRS: -14 QRSD: 90 T: 120 QT: 346 QTc: 441 Interpretive Statements SINUS RHYTHM LEFT VENTRICULAR HYPERTROPHY WITH ST-T CHANGE CONSIDER ANTERIOR INFARCT, AGE INDETERMINATE CONSIDER INFERIOR INFARCT, AGE INDETERMINATE ST-T WAVE ABNORMALITY IN HIGH LATERAL LEADS- CONSIDER ISCHEMIA BASELINE ARTIFACT- I, II, III, AVR, AVL AVF ABNORMAL ECG COMPARED TO ECG 03/20/2022 18:45:36 SINUS RHYTHM NOW PRESENT Electronically Signed On 04-12-2022 7:18:57 LOOM TUNER by Kota Martin D.O.
--- NOTE | 2022-04-11 17:47 | ED.CHESTPAIN ---
HPI - Chest Pain General Chief Complaint: Chest Pain <Lizzy Price PA-C - Last Filed: 04/11/22 22:16> Stated Complaint: cold sx, chest pain x 2-3 days <NICOLLE Campbell Last Filed: 04/11/22 22:16> Time Seen by Provider: 04/11/22 17:27 <NICOLLE Campbell Last Filed: 04/11/22 22:16> Source: patient <NICOLLE Campbell Last Filed: 04/11/22 22:16> Mode of arrival: EMS <NICOLLE Campbell Last Filed: 04/11/22 22:16> Limitations: no limitations <NICOLLE Campbell Last Filed: 04/11/22 22:16> History of Present Illness HPI narrative: This is a 61-year-old female that presents emergency department for cold symptoms ongoing over the last couple of days. Reports cough, nausea, vomiting, and congestion. Reports he has been having an achy chest pain over the last couple of days as well that is intermittent in nature. No known alleviating or exacerbating factors. The pain is substernal. Denies fevers. <Lizzy Price PA-C - Last Filed: 04/11/22 22:16> Related Data Home Medications: Home Medications Medication Instructions Recorded Confirmed oxybutynin chloride 5 mg tablet 5 mg PO DAILY 07/04/19 04/12/22 folic acid 1 mg tablet 1 mg PO DAILY 02/28/20 04/12/22 levothyroxine 150 mcg tablet 150 mcg PO DAILY 02/28/20 04/12/22 (Euthyrox) metoprolol tartrate 25 mg tablet 25 mg PO BID 02/28/20 04/12/22 atorvastatin 40 mg tablet 40 mg PO DAILY 04/11/22 04/12/22 buspirone 10 mg tablet 10 mg PO DAILY 04/11/22 04/12/22 metformin 500 mg tablet,extended 500 mg PO 1XD 04/11/22 04/12/22 release 24 hr pregabalin 200 mg capsule 200 mg PO TID 04/11/22 04/12/22 methocarbamol 500 mg tablet 1,500 mg PO BID 04/16/22 04/23/22 <Lizzy Price PA-C - Last Filed: 04/11/22 22:16> Allergies/Adverse Reactions: Allergies Allergy/AdvReac Type Severity Reaction Status Date / Time codeine Allergy Unknown Unknown Verified 04/11/22 17:47 morphine Allergy Unknown Unknown Verified 04/11/22 17:47 Penicillins Allergy Unknown Unknown Verified 04/11/22 17:47 Sulfa (Sulfonamide Allergy Unknown Unknown Verified 04/11/22 17:47 Antibiotics) Contrast Media Allergy Unknown VOMITING Uncoded 04/11/22 17:47 <Lizzy Price PA-C - Last Filed: 04/11/22 22:16> Review of Systems Review of Systems: CONSTITUTIONAL: Denies fever CARDIOVASCULAR: Reports chest pain. Denies edema. RESPIRATORY: Reports cough and dyspnea. GASTROINTESTINAL: Reports nausea, vomiting <Lizzy Price PA-C - Last Filed: 04/11/22 22:16> All systems reviewed & are unremarkable except as noted in HPI and below <Lizzy Price PA-C - Last Filed: 04/11/22 22:16> [facility] Past Medical History Medical History: Medical History Acquired hypothyroidism Arthritis Blindness Bowel obstruction Celiac disease Chronic low back pain with sciatica Chronic pain Chronic pain syndrome COPD (chronic obstructive pulmonary disease) Diverticulitis Diverticulitis Encounter for screening for lipoid disorders Encounter for screening for other metabolic disorders Endometriosis Fall Fibromyalgia Fibromyalgia Gallstones GERD (gastroesophageal reflux disease) History of anesthesia problem History of renal dialysis Hoarseness of voice Hyponatremia Hypothyroidism Kidney disease Lumbar stenosis with neurogenic claudication Nausea Neurological disease Numbness in both hands Other chronic pain Pain in left hand Peripheral neuropathy Polyneuropathy PUD (peptic ulcer disease) Recurrent UTI Skin lesion Spinal stenosis Throat mass Tobacco use Trigger finger, left ring finger Uses walker Uterine cancer UTI (urinary tract infection) UTI (urinary tract infection), bacterial Wears glasses <NICOLLE Campbell Last Filed: 04/11/22 22:16> Surgical History Surgical History: Surgical History H/O lapar
[2022-04-11] MEDS: SODIUM CHLORIDE 0.9% IV 500 ML 999 ML IV CONT (17:57)
[2022-04-11 18:10] LABS: Basophils Percent Auto 0.3 % (0.2-1.2); Eosinophils Percent Auto 0.3 % (0-4.4); Hematocrit 44.1 % (37.0-47.0); Hemoglobin 14.9 g/dL (12.0-15.0); Immature Granulocyte Absolute 0.09 K/mm3 (0.00-0.031); Lymphocytes Absolute Auto 1.44 K/mm3 (0.9-3.2); Lymphocytes Percent Auto 15.7 % (18.3-44.2); Mean Corpuscular HGB Conc 33.8 g/dl (32-36); Mean Corpuscular Hemoglobin 31.9 pg (26-34); Mean Corpuscular Volume 94.4 fl (80-100); Mean Platelet Volume 8.9 fl (7.4-10.4); Monocytes Absolute Auto 0.5 K/mm3 (0.1-0.6); Monocytes Percent Auto 5.6 % (2.6-8.5); Neutrophils Absolute Auto 7.1 K/mm3 (1.3-6.7); Neutrophils Percent Auto 77.1 % (45.5-73.1); Platelet Count Result 302 k/mm3 (150-375); Red Blood Count 4.67 M/mm3 (4.2-5.4); Red Cell Distribution Width 16.1 % (11.5-14.5); White Blood Count 9.2 K/mm3 (4.5-10.0)
[2022-04-11 18:20] LABS: INR 1.2; Prothrombin Time 14.3 Seconds (11.1-14.7)
[2022-04-11 18:21] LABS: Partial Thromboplastin Time 26.7 SECONDS (22.3-36.8)
[2022-04-11 18:25] LABS: Alanine Aminotransferase 16 U/L (6-35); Albumin Level 2.2 g/dL (3.5-5.1); Alkaline Phosphatase 39 U/L (38-126); Anion Gap 8 mmol/L (8-16); Aspartate Amino Transferase 13 U/L (14-36); Bilirubin,Total 0.4 mg/dL (0.2-1.3); Blood Urea Nitrogen 9 mg/dL (7-17); Calcium 5.2 mg/dL (8.4-10.2); Carbon Dioxide 15 mmol/L (22-30); Chloride 86 mmol/L (98-107); Estimated CRCL calculation 161 ml/min; Estimated Glomerular Filt Rate > 60; Glucose 69 mg/dL (65-110); Lipase 27 U/L (23-300); Sodium 109 mmol/L (137-145)
[2022-04-11 18:31] LABS: Troponin I < 0.012 ng/mL (0.000-0.034)
[2022-04-11 18:46] LABS: Influenza A QL RT-PCR Negative (Negative); Influenza B QL RT-PCR Negative (Negative); SARS-CoV-2 RNA PCR Negative
[2022-04-11 18:48] LABS: Magnesium 1.4 mg/dL (1.6-2.3)
[2022-04-11] MEDS: POTASSIUM CHLORIDE INJ 40 MEQ in SODIUM CHLORIDE 0.9% IV 500 ML 130 MEQ IVPB (19:02)
--- NOTE | 2022-04-11 19:14 | PC.NURSE ---
Report received from MADDI Pace. Assumed care of patient at this time.
[2022-04-11] MEDS: MAGNESIUM SULF 1 GM/D5W 100 ML 1 GM/100 ML BAG IVPB (19:23)
[2022-04-11 20:27] LABS: Appearance Urine Slightly Cloudy (Clear); Bilirubin Urine 1+ (Negative); Blood Urine Negative (Negative); Color Urine Yellow (Yellow); Glucose Urine UA Negative (Negative); Ketones Urine Trace mg/dL (Negative); Leukocyte Esterase Ur Trace LEU/UL (Negative); Nitrate Urine Positive (Negative); Protein Urine 1+ mg/dL (Negative); Specific Grav Ur 1.025 (1.001-1.035); Urobilinogen Urine 0.2 mg/dL (<2.0); pH Urine 5.5 (5.0-9.0)
--- NOTE | 2022-04-11 20:29 | PM.IMHP ---
H&P: HPI History of Present Illness Date/Time: 04/11/22 20:29 Chief Complaint: epigastric pain Narrative: This is a 61-year-old female with past medical history significant for type 2 diabetes mellitus, hypothyroidism, neuro generative disease bed ridden, wheelchair bound, she has a Silke lift at home, lives at home with brother who is her primary caregiver. Patient was brought for evaluation due to epigastric pain preliminary blood work showed several electrolyte derangements however repeat lab work showed basically normal chemistry panel however patient has been choking on food when swallowing and lately with liquids as well most of the history has been obtained from brother at bedside. Patient denies any fevers, rigors, chills, nausea, vomiting, diarrhea, shortness of breath. Patient is been admitted for further evaluation management and treatment. Review of Systems Review of Systems: Debilitation, bed ridden, wheelchair-bound, dysphagia, epigastric pain. Constitutional: Constitutional: Denies chills, Denies fever(s) and Reports weakness Eyes: Eyes: Denies change in vision ENT: Reports dysphagia and Denies odynophagia Cardiovascular: Cardiovascular: Denies orthopnea Respiratory: Respiratory: Reports cough Gastrointestinal: Gastrointestinal: Reports abdominal pain ( epigastric, retrosternal.), Denies nausea, Denies vomiting and Denies hematemesis Genitourinary: Genitourinary: Denies dysuria Musculoskeletal: Musculoskeletal: Reports muscle weakness Integumentary/Breasts: Skin/Breast: Denies rash Neurologic: Reports weakness Endocrine: Endocrine: Denies cold intolerance, Denies flushing, Denies heat intolerance, Denies polyphagia, Denies polydipsia and Denies palpitations Hematologic/Lymphatic: Hematologic/Lymphatic: Reports no additional hematologic/lymphatic complaints and Reports as per HPI Allergic/Immunologic: Allergic/Immunologic: Reports no additional allergic/immunologic complaints and Reports as per HPI PMFSH Past Medical History Medical History (Updated 04/12/22 @ 02:32 by Castillo Rios MD) Acquired hypothyroidism Arthritis Blindness Bowel obstruction Celiac disease Chronic low back pain with sciatica Chronic pain Chronic pain syndrome COPD (chronic obstructive pulmonary disease) Diverticulitis Diverticulitis Encounter for screening for lipoid disorders Encounter for screening for other metabolic disorders Endometriosis Fall Fibromyalgia Fibromyalgia Gallstones GERD (gastroesophageal reflux disease) History of anesthesia problem History of renal dialysis Hoarseness of voice Hyponatremia Hypothyroidism Kidney disease Lumbar stenosis with neurogenic claudication Nausea Neurological disease Numbness in both hands Other chronic pain Pain in left hand Peripheral neuropathy Polyneuropathy PUD (peptic ulcer disease) Recurrent UTI Skin lesion Spinal stenosis Throat mass Tobacco use Trigger finger, left ring finger Uses walker Uterine cancer UTI (urinary tract infection) UTI (urinary tract infection), bacterial Wears glasses Surgical History Surgical History H/O laparoscopy H/O: hysterectomy History of appendectomy History of History of carpal tunnel surgery Family History Family History Other Arthritis Diabetes mellitus Heart disease Hypertension Lung disease Social History Social History Smoking packs per day: 0.3 Smoking cigarettes per day: 6.0 Years smoked: 47 Smoking pack-years: 14.10 Smoking status: Current every day smoker Tobacco type: cigarettes Alcohol intake: never Substance use: never Substance use type: does not use Has the Lack of Transportation Kept You From Medical Appointments or From Getting Medications?: No Within the Past 12 Months, Were You Wo
[2022-04-11 20:35] LABS: Creatinine Urine 223.2 mg/dL
[2022-04-11 20:36] LABS: Sodium Urine Random < 5 meq/L
[2022-04-11 20:46] LABS: Troponin I < 0.012 ng/mL (0.000-0.034)
--- NOTE | 2022-04-11 20:49 | PM.CNNEP ---
Assessment and Plan Assessment and plan (1) Hyponatremia: Code(s): E87.1 - Hypo-osmolality and hyponatremia Status: Acute Assessment and Plan: the patient has hyponatremia. Her sodium has been low before mildly. Back in January it was 131 and back in December it was 136. She does not seem to have a completely normal free water excretion capability. Her specific gravity is 1.025. chest x-ray is clear CT scan in March showed a right adrenal gland adenoma. She has probably had a CT of the brain at [facility] or [place]. will try to get results There are several possibilities. She has not beem taking much in the way of calories the last few days, but she has been drinking free water. So her free water to osmolar intake has been out of balance. The fewer osmole she consumes then the harder it is to get rid of the excess free water. This is similar to beer drinkers potomania but in her case it is not the alcohol it is just the low osmolar intake. Her urine specific gravity is high so this is not the only reason for this. She looks like she is dehydrated also. This can reduce the capability for the kidneys to get rid of excess free water. She says that she has been having some diarrhea and also has been vomiting, probably the main reasons she is dehydrated. The patient is on duloxetine which can also reduce free water excretory capability. The patient is on omeprazole which in some patients can do this as well. this could be pseudohyponatremia from protein such as myeloma. She has a mass in her throat. It is unclear what the nature of this is but if it is cancer this would certainly be a candidate for leading to hyponatremia. Patient does not have any symptoms from the hyponatremia. She does not feel good but she is not confused, tremulous, no seizures, and she is wide awake. I suspect that the drop in the sodium has been going on for at least a few days. Since she has no symptoms we do not need to use 3% saline. Therefore, also, we do not want to correct her too quickly. will try to limit the correction to less than 8milliequivalent/liter per 24hours. Because she looks dehydrated the 1st thing we should do is give her some saline and do a mild fluid restriction. Just correcting the dehydration might correct her sodium. I do not want her to drink a lot of water and drive the sodium even lower, hence the mild fluid restriction. Will follow the sodium levels closely. Another 1 is being repeated. I asked them to call me with this result. The patient's potassium is also low. Because this is also an osmolar-ly active agent will take this into account for correction of the sodium. This has been supplemented by the emergency room. To finish off evaluation of the low sodium, will get cortisol level, TSH. Long discussion with patient and brother as well as with SANDRA Price. 25 min were spent in discussion s with pt, brother, and SANDRA Price (2) Neurological disease: Code(s): G98.8 - Other disorders of nervous system Status: Acute Assessment and Plan: The patient has some sort of undefined neurologic disease which is being evaluated by [facility]. (3) GERD (gastroesophageal reflux disease): Code(s): K21.9 - Gastro-esophageal reflux disease without esophagitis Status: Acute Assessment and Plan: The patient oz on both famotidine and omeprazole. Will continue the famotidine but stop the omeprazole. (4) Tobacco abuse: Code(s): Z72.0 - Tobacco use Status: Acute Assessment and Plan: She was encouraged to stop smoking. (5) Throat mass: Code(s): J39.2 - Other diseases of pharynx Status: Acute Assessment and Plan: This is being evaluated by ENT at [facility]. (6) Recurrent UTI: Code(s): N39.0 - Urinary tract infection, site not specified Status: Acute Assessment and Pl
[2022-04-11 20:51] LABS: Bacteria Urine 4+ /hpf; Mucus Urine Heavy /lpf; Squamous Epithelial Cell Urine Occasional /hpf (Few)
[2022-04-11 20:55] LABS: Add Urine Microscopic? YES
[2022-04-11 21:30] LABS: Anion Gap 7 mmol/L (8-16); Blood Urea Nitrogen 13 mg/dL (7-17); Carbon Dioxide 23 mmol/L (22-30); Chloride 106 mmol/L (98-107); Estimated CRCL calculation 126 ml/min; Estimated Glomerular Filt Rate > 60; Glucose 106 mg/dL (65-110); Magnesium 2.6 mg/dL (1.6-2.3); Potassium 3.7 mmol/L (3.4-5.0); Sodium 136 mmol/L (137-145)
[2022-04-11 23:09] LABS: Free T4 Free Thyroxine Reflex 0.88 ng/dL (0.78-2.19)
[2022-04-12 00:25] LABS: Troponin I < 0.012 ng/mL (0.000-0.034)
--- NOTE | 2022-04-12 00:28 | ADMGEN ---
This patient, Kary Sheridan, was admitted to [facility] Surg Room 304-01. Patient/family oriented to hospital policies and general routines including ID bracelet, bed and alarms, visiting hours, pain management, procedures, bathroom and other care routines, personal items, smoking policy, room service/diet, and visiting hours. Information on how to activate the Rapid Response Team has been discussed. Patient/Family are encouraged to report perceived risks to care and to ask questions if they do not understand what they are told or what they should do.
[2022-04-12] MEDS: SODIUM CHLORIDE 0.9% IV 1,000 ML 75 ML IV CONT ×2 (00:42→18:21)
[2022-04-12] MEDS: FAMOTIDINE 20 MG TABLET PO ×2 (00:44→09:53)
--- NOTE | 2022-04-12 01:12 | PC.NURSE ---
Daylight Savings Time For Daylight Savings Time Ending in the Fall - Clocks are moved back. For Daylight Savings Time Beginning in the Spring - Clocks are moved ahead. For [facility], the time of change occurs at 0200 hrs. Time is taken from the enlisted aircrew/aerial observer/gunner. This entry on the patient's chart recognizes the change in time reflected during documentation. Example: 2 entries for vital signs may be charted for 0200 hrs.
[2022-04-12] MEDS: HYDROcodone/acetaminophen (*CRX) 5-325 MG TABLET 1 TAB PO (03:46)
[2022-04-12 06:00] VITALS: BP 123/88; PULSE 78; RESP 14; TEMP 36.8; O2SAT 98
[2022-04-12] MEDS: LEVOTHYROXINE SODIUM 150 MCG TABLET PO (06:13)
[2022-04-12 07:56] LABS: Basophils Percent Auto 0.4 % (0.2-1.2); Eosinophils Absolute Auto 0.1 K/mm3 (0-0.3); Eosinophils Percent Auto 0.6 % (0-4.4); Hematocrit 41.6 % (37.0-47.0); Hemoglobin 13.8 g/dL (12.0-15.0); Immature Granulocyte Absolute 0.08 K/mm3 (0.00-0.031); Lymphocytes Absolute Auto 1.27 K/mm3 (0.9-3.2); Lymphocytes Percent Auto 16.1 % (18.3-44.2); Mean Corpuscular HGB Conc 33.2 g/dl (32-36); Mean Corpuscular Hemoglobin 31.4 pg (26-34); Mean Corpuscular Volume 94.8 fl (80-100); Mean Platelet Volume 9.2 fl (7.4-10.4); Monocytes Absolute Auto 0.5 K/mm3 (0.1-0.6); Monocytes Percent Auto 5.7 % (2.6-8.5); Neutrophils Percent Auto 76.2 % (45.5-73.1); Platelet Count Result 282 k/mm3 (150-375); Red Blood Count 4.39 M/mm3 (4.2-5.4); White Blood Count 7.9 K/mm3 (4.5-10.0)
[2022-04-12 08:12] LABS: Albumin Level 3.4 g/dL (3.5-5.1); Anion Gap 12 mmol/L (8-16); Blood Urea Nitrogen 12 mg/dL (7-17); Calcium 7.8 mg/dL (8.4-10.2); Carbon Dioxide 22 mmol/L (22-30); Chloride 103 mmol/L (98-107); Estimated CRCL calculation 112 ml/min; Estimated Glomerular Filt Rate > 60; Glucose 93 mg/dL (65-110); Phosphorus 3.8 mg/dL (2.5-4.5); Potassium 3.2 mmol/L (3.4-5.0); Sodium 137 mmol/L (137-145)
[2022-04-12] MEDS: PANTOPRAZOLE SODIUM IV 40 MG VIAL IV PUSH ×2 (09:51→20:41)
[2022-04-12] MEDS: POTASSIUM CHLORIDE INJ 40 MEQ in SODIUM CHLORIDE 0.9% IV 500 ML 130 MEQ IVPB (09:51)
[2022-04-12] MEDS: FOLIC ACID 1 MG TABLET PO (09:52)
[2022-04-12] MEDS: DULoxetine HCL 60 MG CAPSULE.DR PO (09:52)
[2022-04-12 09:53] VITALS: PULSE 78
[2022-04-12] MEDS: PREGABALIN (*CRX) 50 MG CAPSULE 200 MG PO (09:53)
[2022-04-12] MEDS: busPIRone HCL 10 MG TABLET PO (09:53)
[2022-04-12] MEDS: METOPROLOL TARTRATE 25 MG TABLET PO (09:53)
--- NOTE | 2022-04-12 11:11 | PM.IMPN ---
Progress Note: A&P Assessment and Plan (1) Epigastric pain: Code(s): R10.13 - Epigastric pain Status: Acute Assessment and Plan: placed in observation PPI NPO GI consult (2) Dysphagia: Code(s): R13.10 - Dysphagia, unspecified Status: Acute Assessment and Plan: speech eval in a.m. NPO IV fluids (3) GERD (gastroesophageal reflux disease): Code(s): K21.9 - Gastro-esophageal reflux disease without esophagitis Status: Acute Assessment and Plan: PPI (4) Quadriplegia: Code(s): G82.50 - Quadriplegia, unspecified Status: Acute Assessment and Plan: supportive care round the clock turning a scheduled (5) Hypothyroidism: Code(s): E03.9 - Hypothyroidism, unspecified Status: Acute Assessment and Plan: follow-up in outpatient setting Subjective Date/time seen: 04/12/22 11:11 No new complaints Exam Const: General: comfortable, no acute distress, well developed, alert, awake, ill appearing chronically and average body habitus Nutritional Appearance: average body habitus Orientation/consciousness: patient oriented x3 Limitations: physical limitations ( quadriplegia) HENMT: Head: normal to inspection, normocephalic and atraumatic Ears: hearing grossly normal bilaterally Face/Nose/Sinus: normal facial exam Face and sinus: normal facial exam Eyes: General: appearance normal, both eyes and all related structures Pupils: Equal, round and reactive pupils present EOM: EOMs intact bilaterally Neck: Neck: full ROM, no lymphadenopathy and no JVD Thyroid: thyroid normal Lymphatic: no lymphadenopathy noted Resp: Effort & Inspection: normal respiratory effort and able to speak in complete sentences Auscultation: clear to auscultation bilaterally Cardio: Jugular venous distension: no JVD Rate: regular rate Rhythm: regular rhythm Heart sounds: S1 normal heart sound present and S2 normal heart sound present : General: Yes deferred Skin: Rashes: no rashes Wounds: no wounds Other: generalized pallor Neuro: General: patient oriented x3 and CN's II-XI intact bilaterally Cranial nerves: Yes CN's II-XII intact bilaterally and Yes Equal, round and reactive pupils present Cognition (Neuro): normal cognition Speech: normal speech Gait exam (Neuro): Other gait observations present ( quadriplegic) Extrem: General: normal to inspection, full ROM, no joint enlargement and no pedal edema Objective Data Vital Signs Vital Signs: Vital Signs - 24 hr 04/11/22 17:30 04/11/22 17:38 04/11/22 17:41 Temperature 98.6 F Pulse Rate 99 96 Respiratory Rate 20 Blood Pressure 129/94 H Pulse Oximetry 95 96 Oxygen Delivery Room Air Room Air 04/11/22 20:18 04/11/22 22:19 04/11/22 20:01 Temperature 98.0 F Pulse Rate 88 87 Respiratory Rate 17 Blood Pressure 142/101 H Pulse Oximetry 96 Oxygen Delivery 04/11/22 20:15 04/11/22 20:18 04/11/22 20:30 Temperature Pulse Rate 90 94 89 Respiratory Rate 15 13 13 Blood Pressure 142/101 H Pulse Oximetry Oxygen Delivery 04/11/22 20:31 04/11/22 20:45 04/11/22 21:00 Temperature Pulse Rate 88 85 87 Respiratory Rate 17 15 Blood Pressure 136/94 H Pulse Oximetry Oxygen Delivery 04/11/22 21:15 04/11/22 21:16 04/11/22 21:30 Temperature Pulse Rate 91 91 87 Respiratory Rate 17 15 Blood Pressure Pulse Oximetry 98 97 Oxygen Delivery 04/11/22 21:45 04/11/22 22:00 04/11/22 22:01 Temperature Pulse Rate 95 86 88 Respiratory Rate 12 12 Blood Pressure 129/105 H Pulse Oximetry Oxygen Delivery 04/11/22 22:15 04/11/22 22:33 04/12/22 06:00 Temperature 98.2 F Pulse Rate 90 103 H 78 Respiratory Rate 20 14 Blood Pressure 129/100 H 123/88 Pulse Oximetry 98 97 98 Oxygen Delivery 04/12/22 09:53 Temperature Pulse Rate 78 Respiratory Rate Blood Pressure Pulse Oximetry Oxygen Delivery
--- NOTE | 2022-04-12 11:12 | PCSTNOTE ---
Bedside swallowing evaluation. Patient was positioned upright in bed with head in neutral position. Given one medication capsule to swallow with an uncontrolled water bolus from straw. Within a few seconds patient gagged and vomited. Unable to swallow. GI consult has been ordered. At this time a modified barium swallow study would not be appropriate because patient is not able to swallow without vomiting. Thank you for the referral of this patient.
--- NOTE | 2022-04-12 11:36 | P.PNCROSS_ITS ---
Event Note Event Note Event Note: The patient's labs were an artifact. I will sign off. Discussed with Dr. Vernell sehlley
--- NOTE | 2022-04-12 11:48 | WPDGICN ---
Assessment and Plan Assessment and plan (1) Dysphagia: Code(s): R13.10 - Dysphagia, unspecified Status: Acute Assessment and Plan: Patient gives a vague history of difficulty swallowing. Records available in the chart reflect that she had an EGD in 2020 with no obstruction. Patient gives a history of recent evaluation with a tube that went through her nose and saw questionable mass in the back of her throat. This was apparently done at [facility] within the last several months. Plan is to obtain records include both GI and ENT evaluations CT scans, discharge summaries, consultations are requested. If this is not fruitful than a modified barium swallow may be beneficial. (2) Chest pain: Qualifiers: Chest pain type: unspecified Qualified Code(s): R07.9 - Chest pain, unspecified Code(s): R07.9 - Chest pain, unspecified Status: Acute Assessment and Plan: Patient gives a vague history of chest pain on presentation. Has no specific pain at present. She states that maybe hunger pains. I will defer invasive testing pending results of recent testing done at [facility]. (3) Throat mass: Code(s): J39.2 - Other diseases of pharynx Status: Acute Assessment and Plan: patient gives a questionable history of a mass that was identified on ENT or GI evaluation at [facility] several months ago. Results will be requested. (4) Neurological disease: Code(s): G98.8 - Other disorders of nervous system Status: Acute Assessment and Plan: Patient apparently has a neurological disorder followed at [facility]. Exact diagnosis not immediately available. Continued neurological follow-up advised. (5) History of colon polyps: Code(s): Z86.010 - Personal history of colonic polyps Status: Acute Assessment and Plan: Records in the chart reflect that patient has had multiple colon polyps in the past most recently 2019. Elective follow-up colonoscopy is advised when feasible. This can be performed as an outpatient after current hospitalization And current medical problems are resolved. (6) UTI (urinary tract infection): Qualifiers: Hematuria presence: without hematuria Urinary tract infection type: acute cystitis Qualified Code(s): N30.00 - Acute cystitis without hematuria Code(s): N39.0 - Urinary tract infection, site not specified Status: Acute Assessment and Plan: Patient found to have a urinary tract infection on presentation. Patient will be treated per primary care service with appropriate antibiotic therapy. (7) Celiac disease: Code(s): K90.0 - Celiac disease Status: Acute Assessment and Plan: History of previous diagnosis of celiac disease accompanies the patient. Workup not immediately available. Gluten free diet advised for now. Continued follow-up in [facility] after discharge. Plan initially old records will be obtained from [facility]. Particularly any GI studies and ENT evaluation of her throat. Further workup will will proceed depending on these previous findings. GI Consult Note Consult date/time: 04/12/22 11:48 Reason for consult: Epigastric pain. HPI: Kary Sheridan is a 61 year old female I am asked to see at the request the hospitalist service because of epigastric pain. This patient has multiple problems including an ongoing neurological disorder apparently followed at [facility]. The exact nature of this is not well defined. She has been treated for celiac disease, fibromyalgia, chronic pain syndrome, spinal stenosis, uterine cancer, recurrent UTIs. Patient reports she has had trouble swallowing. Apparently this been worked up at [facility] and an apparent ENT evaluation revealed a throat mass. These records are not available. I have records from [place]
[2022-04-12 14:28] VITALS: BP 128/49; PULSE 87; RESP 22; TEMP 36.9; O2SAT 98
[2022-04-12 17:36] VITALS: PULSE 78
[2022-04-12] MEDS: METOPROLOL TARTRATE INJ 5 MG/5 ML VIAL IV PUSH (17:36)
[2022-04-12 22:00] VITALS: BP 145/80; PULSE 71; RESP 17; TEMP 35.9; O2SAT 99
[2022-04-13] MEDS: LEVOTHYROXINE SODIUM INJ 100 MCG/5 ML VIAL 75 MCG IV PUSH (05:36)
[2022-04-13 06:00] VITALS: BP 132/73; PULSE 76; RESP 20; TEMP 36.8; O2SAT 100
[2022-04-13 08:47] LABS: Anion Gap 8 mmol/L (8-16); Blood Urea Nitrogen 9 mg/dL (7-17); Calcium 7.8 mg/dL (8.4-10.2); Carbon Dioxide 19 mmol/L (22-30); Chloride 110 mmol/L (98-107); Estimated CRCL calculation 112 ml/min; Estimated Glomerular Filt Rate > 60; Glucose 75 mg/dL (65-110); Potassium 3.5 mmol/L (3.4-5.0); Sodium 137 mmol/L (137-145)
[2022-04-13 08:49] VITALS: PULSE 76
[2022-04-13] MEDS: METOPROLOL TARTRATE INJ 5 MG/5 ML VIAL IV PUSH ×2 (08:49→17:40)
[2022-04-13] MEDS: FOLIC ACID 1 MG/0.2 ML INJ IV PUSH (08:49)
[2022-04-13] MEDS: PANTOPRAZOLE SODIUM IV 40 MG VIAL IV PUSH ×2 (08:50→21:06)
--- NOTE | 2022-04-13 10:19 | PCWOUND ---
CWON NOTE Received nurse driven consult for possible pressure ulcer present. Spoke with Angela LINDA for patient today. RN states patient does not have wounds, but does have maceration to buttocks, does not need wound RN to see patient as she already is treating with barrier cream.
--- NOTE | 2022-04-13 11:10 | PM.IMPN ---
Progress Note: A&P Assessment and Plan (1) Epigastric pain: Code(s): R10.13 - Epigastric pain Status: Acute Assessment and Plan: Improved today. Monitor. (2) Dysphagia: Code(s): R13.10 - Dysphagia, unspecified Status: Acute Assessment and Plan: Patient had a recent workup at [facility] and had some sort of mass. GI has evaluated the patient, awaiting records. Waiting plan from GI. (3) GERD (gastroesophageal reflux disease): Code(s): K21.9 - Gastro-esophageal reflux disease without esophagitis Status: Acute Assessment and Plan: PPI (4) Quadriplegia: Code(s): G82.50 - Quadriplegia, unspecified Status: Acute Assessment and Plan: supportive care round the clock turning a scheduled (5) Hypothyroidism: Code(s): E03.9 - Hypothyroidism, unspecified Status: Acute Assessment and Plan: follow-up in outpatient setting Subjective Date/time seen: 04/13/22 11:10 Feeling about the same still unable to swallow. Exam Const: General: comfortable, no acute distress, well developed, alert, awake, ill appearing chronically and average body habitus Nutritional Appearance: average body habitus Orientation/consciousness: patient oriented x3 Limitations: physical limitations ( quadriplegia) HENMT: Head: normal to inspection, normocephalic and atraumatic Ears: hearing grossly normal bilaterally Face/Nose/Sinus: normal facial exam Face and sinus: normal facial exam Eyes: General: appearance normal, both eyes and all related structures Pupils: Equal, round and reactive pupils present EOM: EOMs intact bilaterally Neck: Neck: full ROM, no lymphadenopathy and no JVD Thyroid: thyroid normal Lymphatic: no lymphadenopathy noted Resp: Effort & Inspection: normal respiratory effort and able to speak in complete sentences Auscultation: clear to auscultation bilaterally Cardio: Jugular venous distension: no JVD Rate: regular rate Rhythm: regular rhythm Heart sounds: S1 normal heart sound present and S2 normal heart sound present : General: Yes deferred Skin: Rashes: no rashes Wounds: no wounds Other: generalized pallor Neuro: General: patient oriented x3 and CN's II-XI intact bilaterally Cranial nerves: Yes CN's II-XII intact bilaterally and Yes Equal, round and reactive pupils present Cognition (Neuro): normal cognition Speech: normal speech Gait exam (Neuro): Other gait observations present ( quadriplegic) Extrem: General: normal to inspection, full ROM, no joint enlargement and no pedal edema Objective Data Vital Signs Vital Signs: Vital Signs - 24 hr 04/12/22 14:28 04/12/22 17:36 04/12/22 22:00 Temperature 98.4 F 96.7 F L Pulse Rate 87 78 71 Respiratory Rate 22 H 17 Blood Pressure 128/49 L 145/80 H Pulse Oximetry 98 99 04/13/22 06:00 04/13/22 08:49 Temperature 98.3 F Pulse Rate 76 76 Respiratory Rate 20 Blood Pressure 132/73 Pulse Oximetry 100 Intake/Output Intake/Output: Intake & Output 04/11/22 04/12/22 04/12/22 04/13/22 00:59 00:59 23:59 23:59 Intake Total 0 Output Total 275 Balance -275 Meds/Results Medications: Active Medications Generic Name Dose Route Start Last Admin Trade Name Freq PRN Reason Stop Dose Admin Folic Acid 1 mg 04/13/22 09:00 04/13/22 08:49 Folic Acid 1 Mg/0.2 Ml Inj IV PUSH 1 mg DAILY LENCHO Administration Sodium Chloride 1,000 mls @ 75 mls/hr 04/11/22 20:00 04/12/22 18:35 Normal Saline Iv IV CONT 75 mls/hr .[id number] LENCHO Infusion Acetaminophen 1,000 mg in 100 mls @ 400 mls/hr 04/12/22 22:00 04/13/22 05:36 Ofirmev 1,000 Mg Ivpb IVPB 04/13/22 21:59 400 mls/hr Q8HR LENCHO Administration Ceftriaxone Sodium/Dextrose 1 gm in 50 mls @ 100 mls/hr 04/13/22 09:00 04/13/22 08:56 Rocephin 1 Gm/D5w 50 Ml IVPB 100 mls/hr Q24H LENCHO Administration Levothyroxine Sodium 75 mcg 04/13/22 06:30 1
[2022-04-13] MEDS: SODIUM CHLORIDE 0.9% IV 1,000 ML 75 ML IV CONT (12:48)
[2022-04-13 14:00] VITALS: BP 135/72; PULSE 63; RESP 14; TEMP 36.3; O2SAT 96
--- NOTE | 2022-04-13 14:24 | WPDGIPROGNO ---
Progress Note: A&P Assessment and Plan (1) History of colon polyps: Code(s): Z86.010 - Personal history of colonic polyps Status: Acute Assessment and Plan: Patient has a distant history of colon colon polyps elective outpatient colonoscopy is suggested . it has been 5 years since last exam. (2) Dysphagia: Code(s): R13.10 - Dysphagia, unspecified Status: Acute Assessment and Plan: Patient gives a very vague history of dysphagia. Old records are still pending from other institution. EGD on records revealed 2 years ago normal EGD. Plan for barium swallow while awaiting recent workup at [facility]. (3) Celiac disease: Code(s): K90.0 - Celiac disease Status: Acute Assessment and Plan: Patient gives a history of celiac disease. Workup not available for review. Suggest gluten free diet for now. Continue follow-up with established GI after discharge. (4) UTI (urinary tract infection): Qualifiers: Hematuria presence: without hematuria Urinary tract infection type: acute cystitis Qualified Code(s): N30.00 - Acute cystitis without hematuria Code(s): N39.0 - Urinary tract infection, site not specified Status: Acute (5) Throat mass: Code(s): J39.2 - Other diseases of pharynx Status: Acute Assessment and Plan: Patient gives a vague history of some sore throat mass. Workup done in [place] is requested and pending. Barium swallow will be performed to evaluate the esophagus. (6) Neurological disease: Code(s): G98.8 - Other disorders of nervous system Status: Acute Assessment and Plan: Patient followed for some unspecified neurological disease in [place]. Has profound weakness on this basis. She will ultimately need follow-up with Neurology the with whom she is established. Subjective Date/time seen: 04/13/22 14:24 Patient alert this morning. Appears emotional. Somewhat weak. States she is hungry wishes to eat. Reports that swallowing feels better at present. Denies abdominal or chest pain. Old records not yet available at nursing station. Review of Systems Review of Systems: Review of systems negative. Exam Narrative: Physical exam reveals patient to be alert comfortable at rest in bed. HEENT exam reveals no icterus. Lungs are clear. Heart without murmur. Abdomen bowel sounds present soft nontender with no organomegaly today. Objective Data Vital Signs Vital Signs: Vital Signs - 24 hr 04/12/22 14:28 04/12/22 17:36 04/12/22 22:00 Temperature 98.4 F 96.7 F L Pulse Rate 87 78 71 Respiratory Rate 22 H 17 Blood Pressure 128/49 L 145/80 H Pulse Oximetry 98 99 04/13/22 06:00 04/13/22 08:49 Temperature 98.3 F Pulse Rate 76 76 Respiratory Rate 20 Blood Pressure 132/73 Pulse Oximetry 100 Intake/Output Intake/Output: Intake & Output 04/11/22 04/12/22 04/12/22 04/13/22 00:59 00:59 23:59 23:59 Intake Total 1150 Output Total 275 Balance 875 Meds/Results Medications: Active Medications Generic Name Dose Route Start Last Admin Trade Name Williq PRN Reason Stop Dose Admin Folic Acid 1 mg 04/13/22 09:00 04/13/22 08:49 Folic Acid 1 Mg/0.2 Ml Inj IV PUSH 1 mg DAILY LENCHO Administration Sodium Chloride 1,000 mls @ 75 mls/hr 04/11/22 20:00 04/13/22 12:48 Normal Saline Iv IV CONT 75 mls/hr .[id number] LENCHO Administration Acetaminophen 1,000 mg in 100 mls @ 400 mls/hr 04/12/22 22:00 04/13/22 12:50 Ofirmev 1,000 Mg Ivpb IVPB 04/13/22 21:59 400 mls/hr Q8HR LENCHO Administration Ceftriaxone Sodium/Dextrose 1 gm in 50 mls @ 100 mls/hr 04/13/22 09:00 04/13/22 09:30 Rocephin 1 Gm/D5w 50 Ml IVPB Infused Q24H LENCHO Infusion Levothyroxine Sodium 75 mcg 04/13/22 06:30 04/13/22 05:36 Levothyroxine Sodium Inj 100 Mcg/5 Ml Vial IV PUSH 75 mcg DAILY@0630 LENCHO Administration Metoprolol Tartrate 5 mg 04/12/22 17:00 1
[2022-04-13 14:47] VITALS: BMI 26.5
[2022-04-13 17:40] VITALS: PULSE 68
[2022-04-13 21:41] VITALS: BP 143/72; PULSE 84; RESP 16; TEMP 36.8; O2SAT 98
--- NOTE | 2022-04-14 02:42 | PC.NURSE ---
Pt has been resting comfortably all shift. Pt has no complaints at this time. Pt did not contribute or participate in plan of care. Will continue to monitor pt.
[2022-04-14 06:00] VITALS: BP 147/58; PULSE 62; RESP 14; TEMP 36.3; O2SAT 95
--- NOTE | 2022-04-14 08:48 | WPDGIPROGNO ---
Progress Note: A&P Assessment and Plan (1) Dysphagia: Code(s): R13.10 - Dysphagia, unspecified Status: Acute Assessment and Plan: Patient with complaints of dysphagia. Tolerating full liquid diet without difficulty. Barium swallow revealed esophageal dysmotility but no obvious masses. We will try to advance diet at present. Some old records were obtained from [facility]. These reveal that patient underwent esophageal diverticula repair in 2019. She apparently had an unremarkable EGD in 2020. Most recent EGD apparently performed February 24, 2022 the results are not available. No results from ENT evaluation apparent. Patient apparently had a CT scan and recently that suggested possible mediastinal lymphadenopathy. It was felt patient had oropharyngeal dysphagia. modified barium swallow was discussed at some point but not apparent. Much of the records appear lacking at this point. Still need EGD report from February. And any recent ENT evaluation. If not ENT evaluation would be prudent. (2) Celiac disease: Code(s): K90.0 - Celiac disease Status: Acute Assessment and Plan: Gluten free diet advised. (3) History of colon polyps: Code(s): Z86.010 - Personal history of colonic polyps Status: Acute Assessment and Plan: Elective outpatient colonoscopy suggested. (4) Neurological disease: Code(s): G98.8 - Other disorders of nervous system Status: Acute Plan Given patient's extensive ongoing workup at [facility] regarding mediastinal mass. Underlying neurological disorder. Recent ENT in GI evaluations. Feel is probably best for this patient to continue follow-up at [facility]. Records still pending from [facility] including EGD report from February 26, 2022 in any recent ENT evaluation are still pending. Subjective Date/time seen: 04/14/22 08:48 Patient alert this morning. Able to swallow full liquid diet without difficulty. Anxious to eat more. Review of Systems Review of Systems: Review of systems noncontributory. Exam Narrative: Physical exam reveals throat be clear. Lungs are clear. Heart without murmur. Abdomen bowel sounds present soft nontender. Somewhat obese. Difficulty moving with her underlying neurological disorder. Objective Data Vital Signs Vital Signs: Vital Signs - 24 hr 04/13/22 08:49 04/13/22 14:00 04/13/22 17:40 Temperature 97.3 F L Pulse Rate 76 63 68 Respiratory Rate 14 Blood Pressure 135/72 Pulse Oximetry 96 Oxygen Delivery 04/13/22 08:50 04/13/22 21:41 04/13/22 21:06 Temperature 98.2 F Pulse Rate 84 Respiratory Rate 16 Blood Pressure 143/72 H Pulse Oximetry 98 Oxygen Delivery Room Air Room Air 04/14/22 06:00 Temperature 97.3 F L Pulse Rate 62 Respiratory Rate 14 Blood Pressure 147/58 H Pulse Oximetry 95 Oxygen Delivery Intake/Output Intake/Output: Intake & Output 04/12/22 04/12/22 04/13/22 04/14/22 00:59 23:59 23:59 23:59 Intake Total 1400 500 Output Total 675 400 Balance 725 100 Meds/Results Medications: Active Medications Generic Name Dose Route Start Last Admin Trade Name Freq PRN Reason Stop Dose Admin Folic Acid 1 mg 04/13/22 09:00 04/13/22 08:49 Folic Acid 1 Mg/0.2 Ml Inj IV PUSH 1 mg DAILY LENCHO Administration Sodium Chloride 1,000 mls @ 75 mls/hr 04/11/22 20:00 04/13/22 12:48 Normal Saline Iv IV CONT 75 mls/hr .[id number] LENCHO Administration Ceftriaxone Sodium/Dextrose 1 gm in 50 mls @ 100 mls/hr 04/13/22 09:00 04/13/22 09:30 Rocephin 1 Gm/D5w 50 Ml IVPB Infused Q24H LENCHO Infusion Levothyroxine Sodium 75 mcg 04/13/22 06:30 04/13/22 05:36 Levothyroxine Sodium Inj 100 Mcg/5 Ml Vial IV PUSH 75 mcg DAILY@0630 LENCHO Administration Metoprolol Tartrate 5 mg 04/12/22 17:00 04/13/22 17:40 Metoprolol Tartrate Inj 5 Mg/5 Ml Vial IV
[2022-04-14] MEDS: PANTOPRAZOLE SODIUM IV 40 MG VIAL IV PUSH ×2 (09:01→20:44)
[2022-04-14] MEDS: LEVOTHYROXINE SODIUM INJ 100 MCG/5 ML VIAL 75 MCG IV PUSH (09:04)
[2022-04-14 09:13] VITALS: PULSE 71
[2022-04-14] MEDS: FOLIC ACID 1 MG/0.2 ML INJ IV PUSH (09:13)
[2022-04-14] MEDS: METOPROLOL TARTRATE INJ 5 MG/5 ML VIAL IV PUSH ×2 (09:13→17:43)
--- NOTE | 2022-04-14 10:45 | PM.IMPN ---
Progress Note: A&P Assessment and Plan (1) Epigastric pain: Code(s): R10.13 - Epigastric pain Status: Acute Assessment and Plan: Improved today. Monitor. (2) Dysphagia: Code(s): R13.10 - Dysphagia, unspecified Status: Acute Assessment and Plan: incomplete records reviewed. Still waiting on more records from an EEG the report in February. Waiting plan from GI. (3) GERD (gastroesophageal reflux disease): Code(s): K21.9 - Gastro-esophageal reflux disease without esophagitis Status: Acute Assessment and Plan: PPI (4) Quadriplegia: Code(s): G82.50 - Quadriplegia, unspecified Status: Acute Assessment and Plan: supportive care round the clock turning a scheduled (5) Hypothyroidism: Code(s): E03.9 - Hypothyroidism, unspecified Status: Acute Assessment and Plan: follow-up in outpatient setting (6) UTI (urinary tract infection): Qualifiers: Hematuria presence: without hematuria Urinary tract infection type: acute cystitis Qualified Code(s): N30.00 - Acute cystitis without hematuria Code(s): N39.0 - Urinary tract infection, site not specified Status: Acute Assessment and Plan: IV antibiotics Subjective Date/time seen: 04/14/22 10:45 No new complaints Exam Const: General: comfortable, no acute distress, well developed, alert, awake, ill appearing chronically and average body habitus Nutritional Appearance: average body habitus Orientation/consciousness: patient oriented x3 Limitations: physical limitations ( quadriplegia) HENMT: Head: normal to inspection, normocephalic and atraumatic Ears: hearing grossly normal bilaterally Face/Nose/Sinus: normal facial exam Face and sinus: normal facial exam Eyes: General: appearance normal, both eyes and all related structures Pupils: Equal, round and reactive pupils present EOM: EOMs intact bilaterally Neck: Neck: full ROM, no lymphadenopathy and no JVD Thyroid: thyroid normal Lymphatic: no lymphadenopathy noted Resp: Effort & Inspection: normal respiratory effort and able to speak in complete sentences Auscultation: clear to auscultation bilaterally Cardio: Jugular venous distension: no JVD Rate: regular rate Rhythm: regular rhythm Heart sounds: S1 normal heart sound present and S2 normal heart sound present : General: Yes deferred Skin: Rashes: no rashes Wounds: no wounds Other: generalized pallor Neuro: General: patient oriented x3 and CN's II-XI intact bilaterally Cranial nerves: Yes CN's II-XII intact bilaterally and Yes Equal, round and reactive pupils present Cognition (Neuro): normal cognition Speech: normal speech Gait exam (Neuro): Other gait observations present ( quadriplegic) Extrem: General: normal to inspection, full ROM, no joint enlargement and no pedal edema Objective Data Vital Signs Vital Signs: Vital Signs - 24 hr 04/13/22 14:00 04/13/22 17:40 04/13/22 21:41 Temperature 97.3 F L 98.2 F Pulse Rate 63 68 84 Respiratory Rate 14 16 Blood Pressure 135/72 143/72 H Pulse Oximetry 96 98 Oxygen Delivery 04/13/22 21:06 04/14/22 06:00 04/14/22 09:13 Temperature 97.3 F L Pulse Rate 62 71 Respiratory Rate 14 Blood Pressure 147/58 H Pulse Oximetry 95 Oxygen Delivery Room Air Intake/Output Intake/Output: Intake & Output 04/12/22 04/12/22 04/13/22 04/14/22 00:59 23:59 23:59 23:59 Intake Total 1400 560 Output Total 675 400 Balance 725 160 Meds/Results Medications: Active Medications Generic Name Dose Route Start Last Admin Trade Name Shantal PRN Reason Stop Dose Admin Folic Acid 1 mg 04/13/22 09:00 04/14/22 09:13 Folic Acid 1 Mg/0.2 Ml Inj IV PUSH 1 mg DAILY LENCHO Administration Sodium Chloride 1,000 mls @ 75 mls/hr 04/11/22 20:00 04/13/22 12:48 Normal Saline Iv IV CONT 75 mls/hr .[id number] LENCHO Administration Ceftriaxone Sodi
[2022-04-14 14:00] VITALS: BP 138/58; PULSE 71; RESP 18; TEMP 35.9; O2SAT 95
[2022-04-14 17:43] VITALS: PULSE 78
[2022-04-14] MEDS: SODIUM CHLORIDE 0.9% IV 1,000 ML 75 ML IV CONT (17:55)
[2022-04-14] MEDS: methocarbamoL 500 MG TABLET PO (20:43)
[2022-04-14 21:30] VITALS: BP 155/75; PULSE 69; RESP 14; TEMP 37; O2SAT 96
[2022-04-15] VITALS (8 sets, daily range): BP systolic 140–165; BP diastolic 60–77; PULSE 65–79; RESP 14–20; TEMP 36.1–36.6; O2SAT 96–98
[2022-04-15 05:55] LABS: Osmolality, Urine 843 mOsm/kg (50-1200)
[2022-04-15] MEDS: LEVOTHYROXINE SODIUM INJ 100 MCG/5 ML VIAL 75 MCG IV PUSH (06:10)
[2022-04-15] MEDS: SODIUM CHLORIDE 0.9% IV 1,000 ML 75 ML IV CONT ×2 (06:41→20:24)
--- NOTE | 2022-04-15 07:07 | WPDGIPROGNO ---
Progress Note: A&P Assessment and Plan (1) Dysphagia: Code(s): R13.10 - Dysphagia, unspecified Status: Acute Assessment and Plan: Patient now swallowing did well with no indication for dysphagia. Barium swallow exam revealed esophageal dysmotility. EGD available for my review from 2 years ago was unremarkable. Patient states she has been evaluated in [place] and follow-up exam that may be ENT versus GI is planned. I would recommend that she return to their service for continued follow-up. Only some of previous workup from [facility] is available for review. There is question of mediastinal lymphadenopathy on several reports. As patient's chest pain is resolved and she is tolerating diet currently I would advise that we return her to her previous physicians for ongoing workup. Would suggest either transfer to [facility] or discharge with close follow-up as [facility] for continued workup. Records from [facility] are still pending. Additional workup will require these prior to proceeding. (2) Chest pain: Qualifiers: Chest pain type: unspecified Qualified Code(s): R07.9 - Chest pain, unspecified Code(s): R07.9 - Chest pain, unspecified Status: Acute Assessment and Plan: Patient admitted with chest pain. Variously felt to possibly be epigastric pain now resolved. Suggest antacids p.r.n.. (3) History of colon polyps: Code(s): Z86.010 - Personal history of colonic polyps Status: Acute Assessment and Plan: Distant history of adenomatous polyps. Elective outpatient colonoscopy suggested when other issues have resolved. (4) Celiac disease: Code(s): K90.0 - Celiac disease Status: Acute Subjective Date/time seen: 04/15/22 07:07 Patient tolerated diet yesterday without difficulties. States her chest pain has now resolved. Patient reports being very anxious. Had nightmares last night. Review of Systems Review of Systems: Review of systems noncontributory somewhat difficult as she is a poor historian. Exam Narrative: Physical exam reveals patient to be bedridden. She has neurological disorder quadriplegia evident. HEENT exam reveals no icterus. Lungs are clear. Heart without murmur. Abdomen soft nontender. Organomegaly. Objective Data Vital Signs Vital Signs: Vital Signs - 24 hr 04/14/22 09:13 04/14/22 08:00 04/14/22 14:00 Temperature 96.6 F L Pulse Rate 71 71 Respiratory Rate 18 Blood Pressure 138/58 L Pulse Oximetry 95 Oxygen Delivery Room Air 04/14/22 17:43 04/14/22 21:30 04/14/22 20:00 Temperature 98.6 F Pulse Rate 78 69 Respiratory Rate 14 Blood Pressure 155/75 H Pulse Oximetry 96 Oxygen Delivery Room Air 04/15/22 05:27 Temperature 96.9 F L Pulse Rate 70 Respiratory Rate 14 Blood Pressure 140/75 Pulse Oximetry 97 Oxygen Delivery Intake/Output Intake/Output: Intake & Output 04/12/22 04/13/22 04/14/22 04/15/22 23:59 23:59 23:59 23:59 Intake Total 1400 1890 1120 Output Total 675 600 450 Balance 725 1290 670 Meds/Results Medications: Active Medications Generic Name Dose Route Start Last Admin Trade Name Freq PRN Reason Stop Dose Admin Folic Acid 1 mg 04/13/22 09:00 04/14/22 09:13 Folic Acid 1 Mg/0.2 Ml Inj IV PUSH 1 mg DAILY LENCHO Administration Sodium Chloride 1,000 mls @ 75 mls/hr 04/11/22 20:00 04/15/22 06:41 Normal Saline Iv IV CONT 75 mls/hr .[id number] LENCHO Administration Ceftriaxone Sodium/Dextrose 1 gm in 50 mls @ 100 mls/hr 04/13/22 09:00 04/14/22 09:43 Rocephin 1 Gm/D5w 50 Ml IVPB Infused Q24H LENCHO Infusion Levothyroxine Sodium 75 mcg 04/13/22 06:30 04/15/22 06:10 Levothyroxine Sodium Inj 100 Mcg/5 Ml Vial IV PUSH 75 mcg DAILY@0630 LENCHO Administration Metoprolol Tartrate 5 mg 04/12/22 17:00 04/14/22 17:43 Metoprolol Tartrate Inj 5 Mg/5 Ml Vial IV PUSH
[2022-04-15 08:27] LABS: Basophils Percent Auto 0.2 % (0.2-1.2); Eosinophils Absolute Auto 0.1 K/mm3 (0-0.3); Eosinophils Percent Auto 1.3 % (0-4.4); Hemoglobin 13.7 g/dL (12.0-15.0); Immature Granulocyte Absolute 0.07 K/mm3 (0.00-0.031); Immature Granulocyte Percent A 1.5 % (0-0.5); Immature Platelet Fraction Pct 2.6 % (0.9-11.2); Lymphocytes Absolute Auto 0.78 K/mm3 (0.9-3.2); Lymphocytes Percent Auto 16.5 % (18.3-44.2); Mean Corpuscular HGB Conc 32.6 g/dl (32-36); Mean Corpuscular Hemoglobin 31.9 pg (26-34); Mean Corpuscular Volume 97.9 fl (80-100); Mean Platelet Volume 9.7 fl (7.4-10.4); Monocytes Absolute Auto 0.2 K/mm3 (0.1-0.6); Monocytes Percent Auto 5.1 % (2.6-8.5); Neutrophils Absolute Auto 3.6 K/mm3 (1.3-6.7); Neutrophils Percent Auto 75.4 % (45.5-73.1); Platelet Count Result 214 k/mm3 (150-375); Red Blood Count 4.29 M/mm3 (4.2-5.4); Red Cell Distribution Width 15.8 % (11.5-14.5); White Blood Count 4.7 K/mm3 (4.5-10.0)
[2022-04-15 08:40] LABS: Alanine Aminotransferase 17 U/L (6-35); Albumin Level 3.4 g/dL (3.5-5.1); Alkaline Phosphatase 54 U/L (38-126); Anion Gap 15 mmol/L (8-16); Aspartate Amino Transferase 21 U/L (14-36); Bilirubin,Total 0.7 mg/dL (0.2-1.3); Blood Urea Nitrogen 3 mg/dL (7-17); Calcium 7.7 mg/dL (8.4-10.2); Carbon Dioxide 22 mmol/L (22-30); Chloride 101 mmol/L (98-107); Estimated CRCL calculation 112 ml/min; Estimated Glomerular Filt Rate > 60; Glucose 75 mg/dL (65-110); Potassium 2.5 mmol/L (3.4-5.0); Sodium 138 mmol/L (137-145)
[2022-04-15] MEDS: FOLIC ACID 1 MG/0.2 ML INJ IV PUSH (08:54)
[2022-04-15] MEDS: METOPROLOL TARTRATE INJ 5 MG/5 ML VIAL IV PUSH ×2 (08:56→18:01)
[2022-04-15] MEDS: PANTOPRAZOLE SODIUM IV 40 MG VIAL IV PUSH ×2 (08:56→20:24)
[2022-04-15] MEDS: POTASSIUM CHLORIDE INJ 40 MEQ in SODIUM CHLORIDE 0.9% IV 500 ML 130 MEQ IVPB (10:55)
--- NOTE | 2022-04-15 12:41 | PC.NURSE ---
Nail Puller called Dr Martinez regarding physician to nurse communication from Dr. Rowe. Unable to reach Dr. Martinez at this time. Left a message. Will try to reach out again today.
--- NOTE | 2022-04-15 12:45 | WPDNEURCNPN ---
Assessment and Plan Assessment and plan (1) Dysphagia: Code(s): R13.10 - Dysphagia, unspecified Status: Acute (2) Hypothyroidism: Code(s): E03.9 - Hypothyroidism, unspecified Status: Acute (3) Diabetes: Code(s): E11.9 - Type 2 diabetes mellitus without complications Status: Acute (4) Peripheral neuropathy: Code(s): G62.9 - Polyneuropathy, unspecified Status: Acute (5) Throat mass: Code(s): J39.2 - Other diseases of pharynx Status: Acute Plan Kary Sheridan is a 61 year old female with a history of various medical conditions including, hypothyroidism, peripheral neuropathy, spinal stenosis, fibromyalgia, diabetes presenting due to generalized weakness and dysphagia. Patient reports that she was found to have a mass in her throat, although further details of this are not available. No other focal neurological symptoms to suggest stroke, but still a consideration. Other causes include neuromuscular disorders such as myasthenia gravis (although no fluctuation in symptoms), and motor neuron disease. Suspect generalized weakness to be due to deconditioning, but also TSH is elevated, so hypothyroidism may also contribute. - Recommend MRI brain w/wo contrast - Would be helpful to have records from [facility] Neurology to see what work-up has already been done for the dysphagia. Another consideration is to transfer patient to [facility] hospital considering all of her specialists are there. Consult date: 04/16/22 Time Seen: 12:45 Reason for consult: Dysphagia HPI: Kary Sheridan is a 61 year old female with a history of various medical conditions including, hypothyroidism, peripheral neuropathy, spinal stenosis, fibromyalgia, diabetes who presented initially due to nausea, vomiting, URI symptoms, and epigastric pain. She has also had a long standing history of dysphagia, for which she has seen GI and ENT and [facility] hospital. She has had several EGDs in the past, and had a history of esophageal diverticular repair in 2019. Patient reported that she recently had a scope that revealed a mass in her throat. During this admission patient was found to have UTI. She had a barium swallow which showed evidence of esophageal dysmotility. CT head was unremarkable. Patient reports swallowing issues starting months ago. She feels that water and food gets stuck at the level of her chest. She denies any changes in her speech. She reports generalized weakness, but she has also been bedridden for sometime. Her TSH from this admission is elevated at 6.8. She sees [facility] for neuropathy, but denies knowing of any other neurological disorder. Review of Systems Constitutional: Constitutional: Reports weakness Eyes: Comments: legally blind ENT: Reports Normal hearing present and Reports dysphagia Cardiovascular: Cardiovascular: Reports chest pain Respiratory: Respiratory: Reports no additional respiratory complaints Gastrointestinal: Gastrointestinal: Reports diarrhea Genitourinary: Genitourinary: Reports no additional female genitourinary complaints Musculoskeletal: Musculoskeletal: Reports arthralgias Integumentary/Breasts: Skin/Breast: Reports system reviewed and no additional complaints, except as docu Neurologic: Reports as per HPI Psychiatric: Psychiatric: Reports anxiety and Reports depression [facility] Past Medical History Medical History Acquired hypothyroidism Arthritis Blindness Bowel obstruction Celiac disease Chronic low back pain with sciatica Chronic pain Chronic pain syndrome COPD (chronic obstructive pulmonary disease) Diverticulitis Diverticulitis Encounter for screening for lipoid disorders Encounter for screening for other metabolic disorders Endometriosis Fall Fibromyalgia Fibromyalgia Gallstones GERD (gastroesophageal reflux disease) History of anesthesia problem History of renal dialysis Hoarseness of voice Hypon
--- NOTE | 2022-04-15 18:22 | PM.IMPN ---
Progress Note: A&P Assessment and Plan (1) Epigastric pain: Code(s): R10.13 - Epigastric pain Status: Acute Assessment and Plan: resolved (2) Dysphagia: Code(s): R13.10 - Dysphagia, unspecified Status: Acute Assessment and Plan: failed MBS, transfer pending to [facility] concern for underlying malignancy due to mediastinal lymphadenopathy, workup pending via [facility], records pending concern for underlying neurological etiology possible? scheduled to see neurology as an outpatient follow-up at [facility] (3) GERD (gastroesophageal reflux disease): Code(s): K21.9 - Gastro-esophageal reflux disease without esophagitis Status: Acute Assessment and Plan: PPI (4) Quadriplegia: Code(s): G82.50 - Quadriplegia, unspecified Status: Acute Assessment and Plan: supportive care (5) Hypothyroidism: Code(s): E03.9 - Hypothyroidism, unspecified Status: Acute Assessment and Plan: continue levothyroxine, follow-up outpatient for further management (6) UTI (urinary tract infection): Qualifiers: Hematuria presence: without hematuria Urinary tract infection type: acute cystitis Qualified Code(s): N30.00 - Acute cystitis without hematuria Code(s): N39.0 - Urinary tract infection, site not specified Status: Acute Assessment and Plan: continue Rocephin, goal of 5 days of treatment (7) Mediastinal lymphadenopathy: Code(s): R59.0 - Localized enlarged lymph nodes Status: Acute Assessment and Plan: scheduled for endoscopic ultrasound biopsy at [facility] today, had to be put on hold, transfer pending patient supposedly has positive lung cancer markers and is scheduled to follow-up with pulmonology at [facility] later this month Plan DVT prophylaxis with SCDs GI prophylaxis not indicated Code status full code Subjective Date/time seen: 04/15/22 18:22 Interval history: No overnight events noted. No chest pain or shortness of breath. No nausea, vomiting or diarrhea. No fevers or chills. Significant coughing with all p.o. intake. Review of Systems Review of Systems: 12 point review of systems was assessed and was negative except as noted in the HPI Exam Narrative: General: No acute distress, alert and oriented per baseline HEENT: Atraumatic, normocephalic, mucous membranes moist CV: Regular rate and rhythm, S1, S2 Lungs: Clear to auscultation bilaterally, no rales or crackles noted, no wheezes, good air entry Abdomen: Soft, nontender, nondistended Extremities: Normal to inspection Skin: No rashes noted, no lesions or wounds seen Psych: Euthymic, normal affect Objective Data Vital Signs Vital Signs: Vital Signs - 24 hr 04/14/22 21:30 04/14/22 20:00 04/15/22 05:27 Temperature 98.6 F 96.9 F L Pulse Rate 69 70 Respiratory Rate 14 14 Blood Pressure 155/75 H 140/75 Pulse Oximetry 96 97 Oxygen Delivery Room Air 04/15/22 08:56 04/15/22 08:00 04/15/22 14:59 Temperature 97.0 F L Pulse Rate 76 67 Respiratory Rate 14 Blood Pressure 140/77 Pulse Oximetry 96 Oxygen Delivery Room Air 04/15/22 12:00 04/15/22 16:00 04/15/22 18:01 Temperature Pulse Rate 69 79 72 Respiratory Rate Blood Pressure Pulse Oximetry Oxygen Delivery Intake/Output Intake/Output: Intake & Output 04/12/22 04/13/22 04/14/22 04/15/22 23:59 23:59 23:59 23:59 Intake Total 1400 1890 1250 Output Total 675 600 900 Balance 725 1290 350 Meds/Results Medications: Active Medications Generic Name Dose Route Start Last Admin Trade Name Freq PRN Reason Stop Dose Admin Folic Acid 1 mg 04/13/22 09:00 04/15/22 08:54 Folic Acid 1 Mg/0.2 Ml Inj IV PUSH 1 mg DAILY LENCHO Administration Sodium Chloride 1,000 mls @ 75 mls/hr 04/11/22 20:00 04/15/22 06:41 Normal Saline Iv IV CONT 75 mls/hr .[id number] LENCHO Administration Ceftriaxone Sodium/Dextrose 1 gm in 50
[2022-04-15 18:35] LABS: Albumin 3.2 g/dL (3.8-4.8); Alpha 1 Globulin 0.3 g/dL (0.2-0.3); Alpha 2 Globulin 0.9 g/dL (0.5-0.9); Beta 1 Globulin 0.5 g/dL (0.4-0.6); Gamma Globulin 0.8 g/dL (0.8-1.7); Protein, Total 5.9 g/dL (6.1-8.1)
[2022-04-16] VITALS (11 sets, daily range): BP systolic 117–162; BP diastolic 65–75; PULSE 53–76; RESP 16–18; TEMP 36.2–36.3; O2SAT 95–98
[2022-04-16] MEDS: SODIUM CHLORIDE 0.9% IV 1,000 ML 75 ML IV CONT ×2 (05:13→21:14)
[2022-04-16] MEDS: LEVOTHYROXINE SODIUM INJ 100 MCG/5 ML VIAL 75 MCG IV PUSH (05:42)
--- NOTE | 2022-04-16 07:17 | WPDGIPROGNO ---
Progress Note: A&P Assessment and Plan (1) Dysphagia: Code(s): R13.10 - Dysphagia, unspecified Status: Acute Assessment and Plan: Patient appears to have oropharyngeal dysphagia. Suspect this is related to her neurological disorder. The nature of this is unclear but being worked up at [facility]. Patient apparently has been followed by the GI service at [facility]. I would suggest referral back to [facility] for both neuro follow-up and continued workup. Patient may require Dobbhoff tube for nutrition for the near future. Long-term plans may depend on exact diagnosis of her other medical illnesses. (2) Mediastinal lymphadenopathy: Code(s): R59.0 - Localized enlarged lymph nodes Status: Acute Assessment and Plan: Patient has apparently been found to have mediastinal lymphadenopathy. Endoscopic procedure patient was anticipating was endoscopic ultrasound and biopsy of mediastinal lymphadenopathy. This cannot be accomplished at our institution. (3) Neurological disease: Code(s): G98.8 - Other disorders of nervous system Status: Acute Assessment and Plan: Patient has a neurological deterioration. The etiology of which remains unclear. I would recommend follow-up with her established neurology service at [facility]. Subjective Date/time seen: 04/16/22 07:17 Patient remains quite emotional. Apparently had difficulty swallowing. Gurgling well swallowing. Now in p.o. because of apparent oral pharyngeal dysphagia. Quite anxious. Patient denies any chest or abdominal pain presently. Review of Systems Review of Systems: Review of systems noncontributory. Exam Narrative: Physical exam reveals patient be alert. Vital signs stable. HEENT exam reveals no icterus. Lungs are clear. Heart without murmur. Abdomen is obese bowel sounds present soft nontender. Extremities reveal weakness consistent with her neurological dysfunction. Etiology of this is been on clear. Objective Data Vital Signs Vital Signs: Vital Signs - 24 hr 04/15/22 08:56 04/15/22 08:00 04/15/22 14:59 Temperature 97.0 F L Pulse Rate 76 67 Respiratory Rate 14 Blood Pressure 140/77 Pulse Oximetry 96 Oxygen Delivery Room Air 04/15/22 12:00 04/15/22 16:00 04/15/22 18:01 Temperature Pulse Rate 69 79 72 Respiratory Rate Blood Pressure Pulse Oximetry Oxygen Delivery 04/15/22 21:45 04/15/22 20:00 04/15/22 20:00 Temperature 97.8 F Pulse Rate 68 65 Respiratory Rate 20 Blood Pressure 165/60 H Pulse Oximetry 98 Oxygen Delivery Room Air 04/16/22 00:00 04/16/22 04:00 04/16/22 06:00 Temperature 97.4 F L Pulse Rate 65 67 62 Respiratory Rate 18 Blood Pressure 162/71 H Pulse Oximetry 98 Oxygen Delivery Intake/Output Intake/Output: Intake & Output 04/13/22 04/14/22 04/15/22 04/16/22 23:59 23:59 23:59 23:59 Intake Total 1400 1890 2820 1250 Output Total 675 600 900 550 Balance 725 1290 1920 700 Meds/Results Medications: Active Medications Generic Name Dose Route Start Last Admin Trade Name Freq PRN Reason Stop Dose Admin Folic Acid 1 mg 04/13/22 09:00 04/15/22 08:54 Folic Acid 1 Mg/0.2 Ml Inj IV PUSH 1 mg DAILY LENCHO Administration Sodium Chloride 1,000 mls @ 75 mls/hr 04/11/22 20:00 04/16/22 05:13 Normal Saline Iv IV CONT 75 mls/hr .[id number] ELNCHO Administration Ceftriaxone Sodium/Dextrose 1 gm in 50 mls @ 100 mls/hr 04/13/22 09:00 04/15/22 09:24 Rocephin 1 Gm/D5w 50 Ml IVPB 04/16/22 23:59 Infused Q24H LENCHO Infusion Acetaminophen 500 mg in 50 mls @ 200 mls/hr 04/15/22 21:32 04/16/22 05:26 Ofirmev 500 Mg Ivpb IVPB 04/16/22 21:31 Infused Q6H PRN Infusion Pain Rated 4-6 Levothyroxine Sodium 75 mcg 04/13/22 06:30 04/16/22 05:42 Levothyroxine Sodium Inj 100 Mcg/5 Ml Vial IV PUSH 75 mcg DAILY@0630 LENCHO Administr
--- NOTE | 2022-04-16 08:58 | PM.IMPN ---
Progress Note: A&P Assessment and Plan (1) Epigastric pain: Code(s): R10.13 - Epigastric pain Status: Acute Assessment and Plan: resolved (2) Dysphagia: Code(s): R13.10 - Dysphagia, unspecified Status: Acute Assessment and Plan: failed MBS, transfer pending to [facility] concern for underlying malignancy due to mediastinal lymphadenopathy, workup pending via [facility], records pending concern for underlying neurological etiology possible? scheduled to see neurology as an outpatient follow-up at [facility] Will place Dobbhoff tube today and start tube feeds, consult placed to dietitian (3) GERD (gastroesophageal reflux disease): Code(s): K21.9 - Gastro-esophageal reflux disease without esophagitis Status: Acute Assessment and Plan: PPI (4) Quadriplegia: Code(s): G82.50 - Quadriplegia, unspecified Status: Acute Assessment and Plan: supportive care (5) Hypothyroidism: Code(s): E03.9 - Hypothyroidism, unspecified Status: Acute Assessment and Plan: continue levothyroxine, follow-up outpatient for further management (6) UTI (urinary tract infection): Qualifiers: Hematuria presence: without hematuria Urinary tract infection type: acute cystitis Qualified Code(s): N30.00 - Acute cystitis without hematuria Code(s): N39.0 - Urinary tract infection, site not specified Status: Acute Assessment and Plan: continue Rocephin, last dose today (7) Mediastinal lymphadenopathy: Code(s): R59.0 - Localized enlarged lymph nodes Status: Acute Assessment and Plan: scheduled for endoscopic ultrasound biopsy at [facility] 04/15, had to be put on hold, transfer pending patient supposedly has positive lung cancer markers and is scheduled to follow-up with pulmonology at [facility] later this month Plan DVT prophylaxis with SCDs GI prophylaxis with PPI Code status full code Subjective Date/time seen: 04/16/22 08:58 Interval history: No overnight events noted. No chest pain or shortness of breath. No nausea, vomiting or diarrhea. No fevers or chills. Significant coughing with all p.o. intake. Review of Systems Review of Systems: ROS unobtainable: Yes unobtainable due to mental status Exam Narrative: General: Alert and oriented per baseline HEENT: Atraumatic, normocephalic, mucous membranes moist CV: Regular rate and rhythm, S1, S2 Lungs: Clear to auscultation bilaterally Abdomen: Soft, nontender, nondistended Extremities: Normal to inspection Skin: No rashes noted, no lesions or wounds seen Psych: Somewhat tearful, anxious Objective Data Vital Signs Vital Signs: Vital Signs - 24 hr 04/15/22 14:59 04/15/22 12:00 04/15/22 16:00 Temperature 97.0 F L Pulse Rate 67 69 79 Respiratory Rate 14 Blood Pressure 140/77 Pulse Oximetry 96 Oxygen Delivery 04/15/22 18:01 04/15/22 21:45 04/15/22 20:00 Temperature 97.8 F Pulse Rate 72 68 Respiratory Rate 20 Blood Pressure 165/60 H Pulse Oximetry 98 Oxygen Delivery Room Air 04/15/22 20:00 04/16/22 00:00 04/16/22 04:00 Temperature Pulse Rate 65 65 67 Respiratory Rate Blood Pressure Pulse Oximetry Oxygen Delivery 04/16/22 06:00 Temperature 97.4 F L Pulse Rate 62 Respiratory Rate 18 Blood Pressure 162/71 H Pulse Oximetry 98 Oxygen Delivery Intake/Output Intake/Output: Intake & Output 04/13/22 04/14/22 04/15/22 04/16/22 23:59 23:59 23:59 23:59 Intake Total 1400 1890 2820 1250 Output Total 675 600 900 550 Balance 725 1290 1920 700 Meds/Results Medications: Active Medications Generic Name Dose Route Start Last Admin Trade Name Williq PRN Reason Stop Dose Admin Folic Acid 1 mg 04/13/22 09:00 04/15/22 08:54 Folic Acid 1 Mg/0.2 Ml Inj IV PUSH 1 mg DAILY LENCHO Administration Sodium Chloride 1,000 mls @ 75 mls/hr 04/11/22 20:00 04/16/22 05:13 Normal Saline Iv IV
[2022-04-16] MEDS: FOLIC ACID 1 MG/0.2 ML INJ IV PUSH (09:36)
[2022-04-16] MEDS: METOPROLOL TARTRATE INJ 5 MG/5 ML VIAL IV PUSH ×2 (09:36→17:23)
[2022-04-16] MEDS: PANTOPRAZOLE SODIUM IV 40 MG VIAL IV PUSH ×2 (09:38→21:15)
--- NOTE | 2022-04-16 11:30 | PC.NURSE ---
pt. left the floor at 11:30 via bed for dobhoff placement
--- NOTE | 2022-04-16 11:53 | PCNFU ---
Nutrition Follow-Up Complete: Severe malnutrition related to swallowing issue, self-feeding difficulty as evidenced by patient report of poor intake and weight loss -30%/3 months Goal: Increase PO intake as tolerated. Pt is not able to progress towards goal, failed MBS. NPO at this time. New Goal: Meet estimated needs via alternative nutrition support Pt current nutrition is NPO. Nutrition recommendation: Initiate tube feeds when NGT is place. Rec Jevity 1.5 at a goal rate of 50ml/hr over 22 hrs to provide 1650kcals, 70g protein, 836ml free water. Flushes of 150ml q 4 hrs for a total of 1736ml free water. Last recorded weight is 74.5 kg - stable at this time. Bowel Motility: +BM 04/16 Labs Reviewed: Alb:3.4, K:2.5, BUN:3, Cr:0.4 Meds Noted: protonix, folic acid Skin: No pressure areas noted Additional Notes: Pt failed MBS, is currently NPO with orders for a NGT placement and Tube feed recommendations. Recommend Jevity 1.5 at a goal rate of 50ml/hr over 22 hrs to provide 1650kcals, 70g protein, 836ml free water. Flushes of 150ml q 4 hrs for a total of 1736ml free water. Initiate tube feed at 20ml/hr and advance by 10ml q 4 hrs as tolerated. Monitor initiation of tube feeds, tolerance, wt, labs. Follow up every Wednesday/Wednesday.
--- NOTE | 2022-04-16 12:00 | PCDIET ---
Consult received for tube feeding recommendations. Recommend Jevity 1.5 at a goal rate of 50ml/hr over 22 hrs with 150ml flush q 4 hrs to provide 1650kcals, 70g protein, 1736ml free water. Initiate tube feed at 20ml/hr and advance by 10ml q 4 hrs as tolerated.
--- NOTE | 2022-04-16 12:02 | PC.NURSE ---
12:02 pt. returned from feeding tube placement via bed.
[2022-04-17] VITALS (11 sets, daily range): BP systolic 129–149; BP diastolic 73–78; PULSE 61–80; RESP 14–20; TEMP 36–36.4; O2SAT 92–95
[2022-04-17] MEDS: LEVOTHYROXINE SODIUM INJ 100 MCG/5 ML VIAL 75 MCG IV PUSH (06:10)
--- NOTE | 2022-04-17 08:50 | PM.IMPN ---
Progress Note: A&P Assessment and Plan (1) Anxiety: Code(s): F41.9 - Anxiety disorder, unspecified Status: Acute Assessment and Plan: Ativan as needed (2) Dysphagia: Code(s): R13.10 - Dysphagia, unspecified Status: Acute Assessment and Plan: failed MBS, [facility] concern for underlying malignancy due to mediastinal lymphadenopathy, workup pending via [facility], records pending concern for underlying neurological etiology possible? scheduled to see neurology as an outpatient follow-up at [facility] Tube feedings via Dobhoff (3) Epigastric pain: Code(s): R10.13 - Epigastric pain Status: Acute Assessment and Plan: resolved (4) GERD (gastroesophageal reflux disease): Code(s): K21.9 - Gastro-esophageal reflux disease without esophagitis Status: Acute Assessment and Plan: PPI (5) Quadriplegia: Code(s): G82.50 - Quadriplegia, unspecified Status: Acute Assessment and Plan: supportive care (6) Hypothyroidism: Code(s): E03.9 - Hypothyroidism, unspecified Status: Acute Assessment and Plan: continue levothyroxine, follow-up outpatient for further management (7) UTI (urinary tract infection): Qualifiers: Hematuria presence: without hematuria Urinary tract infection type: acute cystitis Qualified Code(s): N30.00 - Acute cystitis without hematuria Code(s): N39.0 - Urinary tract infection, site not specified Status: Acute Assessment and Plan: Completed course of Rocephin (8) Mediastinal lymphadenopathy: Code(s): R59.0 - Localized enlarged lymph nodes Status: Acute Assessment and Plan: scheduled for endoscopic ultrasound biopsy at [facility] 04/15, had to be put on hold, transfer pending patient supposedly has positive lung cancer markers and is scheduled to follow-up with pulmonology at [facility] later this month Plan DVT prophylaxis with SCDs GI prophylaxis with PPI Code status full code Subjective Date/time seen: 04/17/22 08:50 Interval history: Patient tearful because she thinks she is going to . No overnight events noted. No chest pain or shortness of breath. No nausea, vomiting or diarrhea. No fevers or chills. Review of Systems Review of Systems: 12 point review of systems was assessed and was negative except as noted in the HPI Exam Narrative: General: Alert and oriented per baseline HEENT: Atraumatic, normocephalic, mucous membranes moist CV: Regular rate and rhythm, S1, S2 Lungs: Clear to auscultation bilaterally Abdomen: Soft, nontender, nondistended Extremities: Normal to inspection Skin: No rashes noted, no lesions or wounds seen Psych: Somewhat tearful, anxious Objective Data Vital Signs Vital Signs: Vital Signs - 24 hr 04/16/22 09:36 04/16/22 13:57 04/16/22 17:23 Temperature 97.1 F L Pulse Rate 76 64 62 Respiratory Rate 16 Blood Pressure 132/75 Pulse Oximetry 95 04/16/22 12:00 04/16/22 16:00 04/16/22 21:10 Temperature 97.4 F L Pulse Rate 61 60 64 Respiratory Rate 18 Blood Pressure 117/65 Pulse Oximetry 95 04/16/22 20:20 04/17/22 00:00 04/17/22 04:00 Temperature Pulse Rate 53 L 68 64 Respiratory Rate Blood Pressure Pulse Oximetry 04/17/22 05:35 Temperature 97.5 F L Pulse Rate 64 Respiratory Rate 14 Blood Pressure 149/73 H Pulse Oximetry 95 Intake/Output Intake/Output: Intake & Output 04/14/22 04/15/22 04/16/22 04/17/22 23:59 23:59 23:59 23:59 Intake Total 1890 2820 2250 Output Total 537 162 2190 450 Balance 1290 1920 1250 -450 Meds/Results Medications: Active Medications Generic Name Dose Route Start Last Admin Trade Name Freq PRN Reason Stop Dose Admin Dextrose 12.5 gm 04/17/22 08:01 Dextrose 50% 25 Gm/50 Ml Syringe IV PUSH PRN PRN Hypoglycemia Protocol Folic Acid 1 mg 04/13/22 09:00 04/16/22 09:36 Folic Acid
[2022-04-17] MEDS: METOPROLOL TARTRATE INJ 5 MG/5 ML VIAL IV PUSH ×2 (09:18→16:54)
[2022-04-17] MEDS: FOLIC ACID 1 MG/0.2 ML INJ IV PUSH (09:19)
[2022-04-17] MEDS: PANTOPRAZOLE SODIUM IV 40 MG VIAL IV PUSH ×2 (09:19→22:38)
--- NOTE | 2022-04-17 09:55 | PCNFU ---
Nutrition Follow-Up Complete: Severe malnutrition related to swallowing issue, self-feeding difficulty as evidenced by patient report of poor intake and weight loss -30%/3 months Goal: Meet nutritional needs via alternative nutrition support Pt current nutrition is NPO, Tube feeding: Jevity 1.5 @ a goal rate 50ml/hr w 150ml flushes q 4 hrs. Nutrition recommendation: Continue with current plan of care. Last recorded weight is 74.5 kg - stable at this time. Bowel Motility: +BM 04/16 Labs Reviewed: No new labs yet today Meds Noted: protonix, folic acid Skin: no pressure areas noted Additional Notes: Tube feeding has been initiated per previous recommendation. Pt is at 40ml/hr and tolerating at this time. Goal is 50ml/hr to provide 1650kcals, 70g protein, 1736ml free water. monitor tube feeding, wt, labs. Follow up every /Wednesday
[2022-04-17 10:14] LABS: Basophils Percent Auto 0.4 % (0.2-1.2); Eosinophils Percent Auto 0.6 % (0-4.4); Hematocrit 39.5 % (37.0-47.0); Hemoglobin 13.6 g/dL (12.0-15.0); Immature Granulocyte Absolute 0.04 K/mm3 (0.00-0.031); Immature Granulocyte Percent A 0.7 % (0-0.5); Lymphocytes Absolute Auto 0.95 K/mm3 (0.9-3.2); Lymphocytes Percent Auto 17.7 % (18.3-44.2); Mean Corpuscular HGB Conc 34.4 g/dl (32-36); Mean Corpuscular Hemoglobin 32.2 pg (26-34); Mean Corpuscular Volume 93.4 fl (80-100); Mean Platelet Volume 9.5 fl (7.4-10.4); Monocytes Absolute Auto 0.3 K/mm3 (0.1-0.6); Monocytes Percent Auto 6.3 % (2.6-8.5); Neutrophils Percent Auto 74.3 % (45.5-73.1); Platelet Count Result 207 k/mm3 (150-375); Red Blood Count 4.23 M/mm3 (4.2-5.4); Red Cell Distribution Width 15.6 % (11.5-14.5); White Blood Count 5.4 K/mm3 (4.5-10.0)
[2022-04-17 10:36] LABS: Alanine Aminotransferase 14 U/L (6-35); Alkaline Phosphatase 56 U/L (38-126); Anion Gap 12 mmol/L (8-16); Aspartate Amino Transferase 18 U/L (14-36); Bilirubin,Total 0.5 mg/dL (0.2-1.3); Blood Urea Nitrogen 4 mg/dL (7-17); Calcium 7.2 mg/dL (8.4-10.2); Carbon Dioxide 26 mmol/L (22-30); Chloride 101 mmol/L (98-107); Estimated CRCL calculation 143 ml/min; Estimated Glomerular Filt Rate > 60; Glucose 156 mg/dL (65-110); Sodium 139 mmol/L (137-145)
[2022-04-17] MEDS: POTASSIUM CHLORIDE INJ 40 MEQ in SODIUM CHLORIDE 0.9% IV 500 ML 130 MEQ IVPB ×2 (11:32→22:37)
[2022-04-17] MEDS: MORPHINE SULFATE (*CRX) 2 MG/ML INJ IV PUSH ×2 (11:37→23:38)
[2022-04-17] MEDS: SODIUM CHLORIDE 0.9% IV 1,000 ML 75 ML IV CONT (11:40)
[2022-04-17 11:56] LABS: Glucose Point of Care 178 mg/dl (65-105)
--- NOTE | 2022-04-17 13:32 | WPDGIPROGNO ---
Progress Note: A&P Assessment and Plan (1) Dysphagia: Code(s): R13.10 - Dysphagia, unspecified Status: Acute Assessment and Plan: Patient with oropharyngeal dysphagia. Most likely related to whatever neurological process she is dealing with. Currently able to get nutrition with Dobbhoff tube. Patient is undergoing extensive workup by Neurology at [facility]. Probably best to follow-up with them prior to any invasive testing cannot exclude that at some point she might require PEG tube. Plan to transfer to [facility] for ongoing workup. I spoke with archaeology professor at [facility]. Patient has had several endoscopies that were unremarkable. (2) Mediastinal lymphadenopathy: Code(s): R59.0 - Localized enlarged lymph nodes Status: Acute Assessment and Plan: Imaging at [facility] is identified mediastinal lymphadenopathy. Patient was scheduled for lymph node biopsy of the mediastinum but this was canceled because of her admission here. She should be referred to [facility] the capability for this not available at our institution. (3) Anxiety: Code(s): F41.9 - Anxiety disorder, unspecified Status: Acute Assessment and Plan: Patient exhibits a great deal of anxiety and depression. Likely related to her multiple medical problems. She does not appear capable of comprehending the issues involved. (4) Neurological disease: Code(s): G98.8 - Other disorders of nervous system Status: Acute Assessment and Plan: Patient is felt to have some generalized neurological process. The nature which not clear to us. Workup in progress at [facility] I feel it would be best for her to follow up with them for ongoing care. Subjective Date/time seen: 04/17/22 13:32 Patient emotional at times. Now tolerating Dobbhoff tube feedings. Denies abdominal or chest pain. Review of Systems Review of Systems: Review of systems noncontributory. Exam Narrative: Physical exam reveals patient be alert. She is afebrile on anicteric. Vital signs stable. She lies at bedrest . very weak, may have functional. Quadriplegia. HEENT exam reveals no icterus. Lungs are clear. Heart without murmur. Abdomen soft nontender somewhat obese. Objective Data Vital Signs Vital Signs: Vital Signs - 24 hr 04/16/22 13:57 04/16/22 17:23 04/16/22 16:00 Temperature 97.1 F L Pulse Rate 64 62 60 Respiratory Rate 16 Blood Pressure 132/75 Pulse Oximetry 95 Oxygen Delivery 04/16/22 21:10 04/16/22 20:20 04/17/22 00:00 Temperature 97.4 F L Pulse Rate 64 53 L 68 Respiratory Rate 18 Blood Pressure 117/65 Pulse Oximetry 95 Oxygen Delivery 04/17/22 04:00 04/17/22 05:35 04/17/22 09:18 Temperature 97.5 F L Pulse Rate 64 64 80 Respiratory Rate 14 Blood Pressure 149/73 H Pulse Oximetry 95 Oxygen Delivery 04/17/22 09:20 04/17/22 08:00 04/17/22 12:00 Temperature Pulse Rate 73 61 Respiratory Rate Blood Pressure Pulse Oximetry Oxygen Delivery Room Air Intake/Output Intake/Output: Intake & Output 04/14/22 04/15/22 04/16/22 04/17/22 23:59 23:59 23:59 23:59 Intake Total 1890 2820 2250 1000 Output Total 839 461 4412 450 Balance 1290 1920 1250 550 Meds/Results Medications: Active Medications Generic Name Dose Route Start Last Admin Trade Name Freq PRN Reason Stop Dose Admin Dextrose 12.5 gm 04/17/22 08:01 Dextrose 50% 25 Gm/50 Ml Syringe IV PUSH PRN PRN Hypoglycemia Protocol Folic Acid 1 mg 04/13/22 09:00 04/17/22 09:19 Folic Acid 1 Mg/0.2 Ml Inj IV PUSH 1 mg DAILY LENCHO Administration Glucagon 1 mg 04/17/22 08:01 Glucagon For Inj 1 Mg Vial IM PRN PRN Hypoglycemia Protocol Glucose 15 gm 04/17/22 08:01 Glucose Oral Gel 15 Gm Of Glucse In 37.5 Gm Tube PO PRN PRN Hypoglycemia
[2022-04-17 17:21] LABS: Potassium 2.3 mmol/L (3.4-5.0)
[2022-04-17 18:00] LABS: Glucose Point of Care 173 mg/dl (65-105)
[2022-04-17] MEDS: KCL 40 MEQ/0.9% SOD CHL 1,000 ML 75 ML IV CONT (18:45)
[2022-04-17] MEDS: LORazepam INJ (*CRX) 2 MG/ML VIAL 1 MG IV PUSH (20:36)
[2022-04-18] VITALS (10 sets, daily range): BP systolic 138–153; BP diastolic 84–92; PULSE 72–99; RESP 16–18; TEMP 36.1–36.6; O2SAT 92–97
[2022-04-18] MEDS: LEVOTHYROXINE SODIUM INJ 100 MCG/5 ML VIAL 75 MCG IV PUSH (06:22)
[2022-04-18 06:27] LABS: Glucose Point of Care 150 mg/dl (65-105)
[2022-04-18 07:46] LABS: Basophils Percent Auto 0.4 % (0.2-1.2); Eosinophils Absolute Auto 0.1 K/mm3 (0-0.3); Eosinophils Percent Auto 1.5 % (0-4.4); Hematocrit 38.4 % (37.0-47.0); Immature Granulocyte Absolute 0.04 K/mm3 (0.00-0.031); Immature Granulocyte Percent A 0.9 % (0-0.5); Lymphocytes Absolute Auto 0.81 K/mm3 (0.9-3.2); Lymphocytes Percent Auto 17.3 % (18.3-44.2); Mean Corpuscular HGB Conc 33.9 g/dl (32-36); Mean Corpuscular Hemoglobin 31.7 pg (26-34); Mean Corpuscular Volume 93.7 fl (80-100); Mean Platelet Volume 9.2 fl (7.4-10.4); Monocytes Absolute Auto 0.4 K/mm3 (0.1-0.6); Monocytes Percent Auto 7.5 % (2.6-8.5); Neutrophils Absolute Auto 3.4 K/mm3 (1.3-6.7); Neutrophils Percent Auto 72.4 % (45.5-73.1); Platelet Count Result 201 k/mm3 (150-375); Red Cell Distribution Width 15.8 % (11.5-14.5); White Blood Count 4.7 K/mm3 (4.5-10.0)
[2022-04-18 07:58] LABS: Alanine Aminotransferase 17 U/L (6-35); Alkaline Phosphatase 67 U/L (38-126); Anion Gap 7 mmol/L (8-16); Aspartate Amino Transferase 20 U/L (14-36); Bilirubin,Total 0.6 mg/dL (0.2-1.3); Blood Urea Nitrogen 8 mg/dL (7-17); Calcium 7.6 mg/dL (8.4-10.2); Carbon Dioxide 26 mmol/L (22-30); Chloride 109 mmol/L (98-107); Estimated CRCL calculation 143 ml/min; Estimated Glomerular Filt Rate > 60; Glucose 143 mg/dL (65-110); Potassium 2.7 mmol/L (3.4-5.0); Sodium 142 mmol/L (137-145)
[2022-04-18] MEDS: METOPROLOL TARTRATE INJ 5 MG/5 ML VIAL IV PUSH ×2 (09:11→16:33)
[2022-04-18] MEDS: PANTOPRAZOLE SODIUM IV 40 MG VIAL IV PUSH ×2 (09:11→22:09)
[2022-04-18] MEDS: FOLIC ACID 1 MG/0.2 ML INJ IV PUSH (09:11)
--- NOTE | 2022-04-18 09:46 | PM.IMPN ---
Progress Note: A&P Assessment and Plan (1) Anxiety: Code(s): F41.9 - Anxiety disorder, unspecified Status: Acute Assessment and Plan: Ativan as needed (2) Dysphagia: Code(s): R13.10 - Dysphagia, unspecified Status: Acute Assessment and Plan: failed MBS, transfer pending [facility] concern for underlying malignancy due to mediastinal lymphadenopathy, workup pending via [facility], records pending concern for underlying neurological etiology possible? scheduled to see neurology as an outpatient follow-up at [facility] Tube feedings via Dobhoff (3) Epigastric pain: Code(s): R10.13 - Epigastric pain Status: Acute Assessment and Plan: resolved (4) GERD (gastroesophageal reflux disease): Code(s): K21.9 - Gastro-esophageal reflux disease without esophagitis Status: Acute Assessment and Plan: PPI (5) Quadriplegia: Code(s): G82.50 - Quadriplegia, unspecified Status: Acute Assessment and Plan: supportive care (6) Hypothyroidism: Code(s): E03.9 - Hypothyroidism, unspecified Status: Acute Assessment and Plan: continue levothyroxine, follow-up outpatient for further management (7) UTI (urinary tract infection): Qualifiers: Hematuria presence: without hematuria Urinary tract infection type: acute cystitis Qualified Code(s): N30.00 - Acute cystitis without hematuria Code(s): N39.0 - Urinary tract infection, site not specified Status: Acute Assessment and Plan: Completed course of Rocephin (8) Mediastinal lymphadenopathy: Code(s): R59.0 - Localized enlarged lymph nodes Status: Acute Assessment and Plan: scheduled for endoscopic ultrasound biopsy at [facility] 04/15, had to be put on hold, transfer pending patient supposedly has positive lung cancer markers and is scheduled to follow-up with pulmonology at [facility] later this month Plan DVT prophylaxis with SCDs GI prophylaxis with PPI Code status full code Subjective Date/time seen: 04/18/22 09:46 Interval history: No overnight events noted. No chest pain or shortness of breath. No nausea, vomiting or diarrhea. No fevers or chills. Patient anxious and tearful and asking if she is going to because she knows she has cancer and is not being currently treated. Review of Systems Review of Systems: 12 point review of systems was assessed and was negative except as noted in the HPI Exam Narrative: General: No acute distress, alert and oriented per baseline HEENT: Atraumatic, normocephalic, mucous membranes moist CV: Regular rate and rhythm, S1, S2 Lungs: Clear to auscultation bilaterally, no rales or crackles noted, no wheezes, good air entry Abdomen: Soft, nontender, nondistended Extremities: Normal to inspection Skin: No rashes noted, no lesions or wounds seen Psych: Tearful, anxious Objective Data Vital Signs Vital Signs: Vital Signs - 24 hr 04/17/22 12:00 04/17/22 13:56 04/17/22 16:54 Temperature 96.8 F L Pulse Rate 61 70 74 Respiratory Rate 20 Blood Pressure 129/74 Pulse Oximetry 92 04/17/22 16:00 04/17/22 22:00 04/17/22 20:00 Temperature 97.5 F L Pulse Rate 69 78 66 Respiratory Rate 18 Blood Pressure 146/78 H Pulse Oximetry 92 04/18/22 00:00 04/18/22 04:00 04/18/22 06:00 Temperature 98 F Pulse Rate 78 72 81 Respiratory Rate 18 Blood Pressure 153/84 H Pulse Oximetry 97 04/18/22 09:11 Temperature Pulse Rate 78 Respiratory Rate Blood Pressure Pulse Oximetry Intake/Output Intake/Output: Intake & Output 04/15/22 04/16/22 04/17/22 04/18/22 23:59 23:59 23:59 23:59 Intake Total 2820 2250 1000 Output Total 900 1000 1000 125 Balance 1920 1250 0 -125 Meds/Results Medications: Active Medications Generic Name Dose Route Start Last Admin Trade Name Freq PRN Reason Stop Dose Admin Dextrose 12.5 gm 04/17/22 08:01 Dextrose 50% 25
[2022-04-18] MEDS: LORazepam INJ (*CRX) 2 MG/ML VIAL 1 MG IV PUSH ×2 (11:30→22:04)
[2022-04-18] MEDS: POTASSIUM CHLORIDE INJ 40 MEQ in SODIUM CHLORIDE 0.9% IV 500 ML 130 MEQ IVPB (11:42)
[2022-04-18 11:48] LABS: Glucose Point of Care 140 mg/dl (65-105)
[2022-04-18] MEDS: POTASSIUM CHLORIDE 20 MEQ PACKET (FOR LIQUID) 40 MEQ FEED TUBE ×2 (12:22→16:32)
[2022-04-18] MEDS: MORPHINE SULFATE (*CRX) 2 MG/ML INJ IV PUSH ×2 (13:29→22:06)
--- NOTE | 2022-04-18 14:00 | WPDGIPROGNO ---
Progress Note: A&P Assessment and Plan (1) Dysphagia: Code(s): R13.10 - Dysphagia, unspecified Status: Acute Assessment and Plan: Patient with oropharyngeal dysphagia. Most likely related to underlying neurological process, now she is tolerating nutrition with Dobbhoff tube. She will be transferred to [facility]- awaiting for bed, no other new changes. will follow from [place] as needed. (2) Mediastinal lymphadenopathy: Code(s): R59.0 - Localized enlarged lymph nodes Status: Acute Assessment and Plan: Imaging at [facility] is identified mediastinal lymphadenopathy. Patient was scheduled for lymph node biopsy of the mediastinum but this was canceled because of her admission here. (3) Anxiety: Code(s): F41.9 - Anxiety disorder, unspecified Status: Acute Assessment and Plan: unchanged (4) Neurological disease: Code(s): G98.8 - Other disorders of nervous system Status: Acute Assessment and Plan: Patient is felt to have some generalized neurological process. Workup in progress at [facility] Subjective Date/time seen: 04/18/22 14:00 Interval history: no changes, tolerating tube feeding at 50ml/h by DHT Review of Systems Review of Systems: All systems reviewed & are unremarkable except as noted in HPI and below Exam Narrative: Physical exam reveals patient be alert. She is afebrile on anicteric. Vital signs stable. She lies at bedrest, still weak and chronically ill. Quadriplegia. HEENT exam reveals no icterus, DHT in position. Lungs are clear. Heart without murmur. Abdomen soft nontender somewhat obese. skin- no rash. Objective Data Vital Signs Vital Signs: Vital Signs - 24 hr 04/17/22 16:54 04/17/22 16:00 04/17/22 22:00 Temperature 97.5 F L Pulse Rate 74 69 78 Respiratory Rate 18 Blood Pressure 146/78 H Pulse Oximetry 92 Oxygen Delivery 04/17/22 20:00 04/18/22 00:00 04/18/22 04:00 Temperature Pulse Rate 66 78 72 Respiratory Rate Blood Pressure Pulse Oximetry Oxygen Delivery 04/18/22 06:00 04/18/22 09:11 04/18/22 08:45 Temperature 98 F Pulse Rate 81 78 78 Respiratory Rate 18 Blood Pressure 153/84 H Pulse Oximetry 97 Oxygen Delivery 04/18/22 08:45 Temperature Pulse Rate Respiratory Rate Blood Pressure Pulse Oximetry 96 Oxygen Delivery Room Air Intake/Output Intake/Output: Intake & Output 04/15/22 04/16/22 04/17/22 04/18/22 23:59 23:59 23:59 23:59 Intake Total 2820 2250 1000 Output Total 900 1000 1000 125 Balance 1920 1250 0 -125 Meds/Results Medications: Active Medications Generic Name Dose Route Start Last Admin Trade Name Freq PRN Reason Stop Dose Admin Dextrose 12.5 gm 04/17/22 08:01 Dextrose 50% 25 Gm/50 Ml Syringe IV PUSH PRN PRN Hypoglycemia Protocol Folic Acid 1 mg 04/13/22 09:00 04/18/22 09:11 Folic Acid 1 Mg/0.2 Ml Inj IV PUSH 1 mg DAILY LENCHO Administration Glucagon 1 mg 04/17/22 08:01 Glucagon For Inj 1 Mg Vial IM PRN PRN Hypoglycemia Protocol Glucose 15 gm 04/17/22 08:01 Glucose Oral Gel 15 Gm Of Glucse In 37.5 Gm Tube PO PRN PRN Hypoglycemia Protocol Dextrose 1,000 mls @ 100 mls/hr 04/17/22 08:01 Dextrose 5% 1,000 Ml IVPB PRN PRN Hypoglycemia Protocol Potassium Chloride/Sodium Chloride 1,000 mls @ 75 mls/hr 04/17/22 18:00 04/18/22 09:12 Kcl 40 Meq/Ns IV CONT Not Given .[id number] LENCHO Levothyroxine Sodium 75 mcg 04/13/22 06:30 04/18/22 06:22 Levothyroxine Sodium Inj 100 Mcg/5 Ml Vial IV PUSH 75 mcg DAILY@0630 LENCHO Administration Lorazepam 1 mg 04/17/22 11:11 04/18/22 11:30 Lorazepam Inj (*Crx) 2 Mg/Ml Vial IV PUSH 1 mg Q6H PRN Administration Anxiety Metoprolol Tartrate 5 mg 04/12/22 17:00 04/18/22 09:11 Metoprolol Tartrate Inj 5 Mg/5 Ml Vial IV PUS
[2022-04-18] MEDS: SALINE LOCK FLUSH 10 ML IV PUSH ×2 (16:35→22:09)
[2022-04-18] MEDS: KCL 40 MEQ/0.9% SOD CHL 1,000 ML 75 ML IV CONT (16:38)
[2022-04-18 18:15] LABS: Glucose Point of Care 123 mg/dl (65-105)
[2022-04-19] VITALS (10 sets, daily range): BP systolic 138–148; BP diastolic 83–90; PULSE 73–94; RESP 16–18; TEMP 36.2–36.3; O2SAT 95–97
[2022-04-19 01:15] LABS: Glucose Point of Care 149 mg/dl (65-105)
[2022-04-19] MEDS: MORPHINE SULFATE (*CRX) 2 MG/ML INJ IV PUSH ×3 (02:36→21:11)
[2022-04-19] MEDS: LORazepam INJ (*CRX) 2 MG/ML VIAL 1 MG IV PUSH ×2 (06:09→21:10)
[2022-04-19] MEDS: SALINE LOCK FLUSH 10 ML IV PUSH ×3 (06:10→20:55)
[2022-04-19] MEDS: LEVOTHYROXINE SODIUM INJ 100 MCG/5 ML VIAL 75 MCG IV PUSH (06:11)
[2022-04-19 06:40] LABS: Basophils Percent Auto 0.4 % (0.2-1.2); Eosinophils Absolute Auto 0.1 K/mm3 (0-0.3); Eosinophils Percent Auto 1.2 % (0-4.4); Hematocrit 39.3 % (37.0-47.0); Hemoglobin 13.1 g/dL (12.0-15.0); Immature Granulocyte Absolute 0.07 K/mm3 (0.00-0.031); Immature Granulocyte Percent A 1.4 % (0-0.5); Lymphocytes Percent Auto 19.3 % (18.3-44.2); Mean Corpuscular HGB Conc 33.3 g/dl (32-36); Mean Corpuscular Hemoglobin 31.6 pg (26-34); Mean Corpuscular Volume 94.9 fl (80-100); Mean Platelet Volume 9.3 fl (7.4-10.4); Monocytes Absolute Auto 0.4 K/mm3 (0.1-0.6); Neutrophils Absolute Auto 3.7 K/mm3 (1.3-6.7); Neutrophils Percent Auto 70.7 % (45.5-73.1); Platelet Count Result 173 k/mm3 (150-375); Red Blood Count 4.14 M/mm3 (4.2-5.4); Red Cell Distribution Width 15.9 % (11.5-14.5); White Blood Count 5.2 K/mm3 (4.5-10.0)
[2022-04-19 07:19] LABS: Alanine Aminotransferase 16 U/L (6-35); Albumin Level 2.8 g/dL (3.5-5.1); Alkaline Phosphatase 66 U/L (38-126); Anion Gap 8 mmol/L (8-16); Aspartate Amino Transferase 16 U/L (14-36); Bilirubin,Total 0.4 mg/dL (0.2-1.3); Blood Urea Nitrogen 4 mg/dL (7-17); Calcium 7.3 mg/dL (8.4-10.2); Carbon Dioxide 29 mmol/L (22-30); Chloride 103 mmol/L (98-107); Estimated CRCL calculation 143 ml/min; Estimated Glomerular Filt Rate > 60; Glucose 100 mg/dL (65-110); Potassium 2.9 mmol/L (3.4-5.0); Sodium 140 mmol/L (137-145)
--- NOTE | 2022-04-19 08:29 | PM.IMPN ---
Progress Note: A&P Assessment and Plan (1) Anxiety: Code(s): F41.9 - Anxiety disorder, unspecified Status: Acute Assessment and Plan: Ativan as needed Stable (2) Dysphagia: Code(s): R13.10 - Dysphagia, unspecified Status: Acute Assessment and Plan: failed MBS, transfer pending to [facility] concern for underlying malignancy due to mediastinal lymphadenopathy, workup pending via [facility], records pending concern for underlying neurological etiology possible? scheduled to see neurology as an outpatient follow-up at [facility] Tube feedings via Dobhoff Check MRI per Neurology recommendations, pending (3) Epigastric pain: Code(s): R10.13 - Epigastric pain Status: Acute Assessment and Plan: resolved (4) GERD (gastroesophageal reflux disease): Code(s): K21.9 - Gastro-esophageal reflux disease without esophagitis Status: Acute Assessment and Plan: PPI (5) Quadriplegia: Code(s): G82.50 - Quadriplegia, unspecified Status: Acute Assessment and Plan: supportive care (6) Hypothyroidism: Code(s): E03.9 - Hypothyroidism, unspecified Status: Acute Assessment and Plan: continue levothyroxine, follow-up outpatient for further management (7) UTI (urinary tract infection): Qualifiers: Hematuria presence: without hematuria Urinary tract infection type: acute cystitis Qualified Code(s): N30.00 - Acute cystitis without hematuria Code(s): N39.0 - Urinary tract infection, site not specified Status: Acute Assessment and Plan: Completed course of Rocephin (8) Mediastinal lymphadenopathy: Code(s): R59.0 - Localized enlarged lymph nodes Status: Acute Assessment and Plan: scheduled for endoscopic ultrasound biopsy at [facility] 04/15, had to be put on hold, transfer pending patient supposedly has positive lung cancer markers and is scheduled to follow-up with pulmonology at [facility] later this month Plan DVT prophylaxis with SCDs GI prophylaxis with PPI Code status full code Subjective Date/time seen: 04/19/22 08:29 Interval history: No overnight events noted. No chest pain or shortness of breath. No nausea, vomiting or diarrhea. No fevers or chills. Patient seems less anxious today. No complaints. Review of Systems Review of Systems: 12 point review of systems was assessed and was negative except as noted in the HPI Exam Narrative: General: No acute distress, alert and oriented per baseline HEENT: Atraumatic, normocephalic, mucous membranes moist CV: Regular rate and rhythm, S1, S2 Lungs: Clear to auscultation bilaterally, no rales or crackles noted, no wheezes, good air entry Abdomen: Soft, nontender, nondistended Extremities: Normal to inspection Skin: No rashes noted, no lesions or wounds seen Psych: Euthymic, normal affect Objective Data Vital Signs Vital Signs: Vital Signs - 24 hr 04/18/22 09:11 04/18/22 08:45 04/18/22 08:45 Temperature Pulse Rate 78 78 Respiratory Rate Blood Pressure Pulse Oximetry 96 Oxygen Delivery Room Air 04/18/22 16:33 04/18/22 16:00 04/18/22 14:00 Temperature 97.0 F L Pulse Rate 88 85 76 Respiratory Rate 16 Blood Pressure 140/92 H Pulse Oximetry 92 Oxygen Delivery 04/18/22 22:00 04/18/22 20:00 04/19/22 00:00 Temperature 97.3 F L Pulse Rate 99 78 77 Respiratory Rate 16 Blood Pressure 138/88 Pulse Oximetry 93 Oxygen Delivery 04/19/22 04:00 04/19/22 05:52 Temperature 97.4 F L Pulse Rate 89 90 Respiratory Rate 16 Blood Pressure 148/86 H Pulse Oximetry 97 Oxygen Delivery Intake/Output Intake/Output: Intake & Output 04/16/22 04/17/22 04/18/22 04/19/22 23:59 23:59 23:59 23:59 Intake Total 2250 1000 1000 2700 Output Total 1000 1000 650 950 Balance 1250 0 350 1750 Meds/Results Medications: Active Medications Generic Name Dose Route Start Last Ad
[2022-04-19] MEDS: PANTOPRAZOLE SODIUM IV 40 MG VIAL IV PUSH ×2 (09:56→20:54)
[2022-04-19] MEDS: KCL 40 MEQ/0.9% SOD CHL 1,000 ML 75 ML IV CONT (09:56)
[2022-04-19] MEDS: METOPROLOL TARTRATE INJ 5 MG/5 ML VIAL IV PUSH ×2 (09:57→16:44)
[2022-04-19] MEDS: FOLIC ACID 1 MG/0.2 ML INJ IV PUSH (09:57)
[2022-04-19] MEDS: POTASSIUM CHLORIDE 20 MEQ PACKET (FOR LIQUID) 40 MEQ FEED TUBE ×3 (09:57→16:45)
[2022-04-19 12:08] LABS: Glucose Point of Care 126 mg/dl (65-105)
[2022-04-19] MEDS: POTASSIUM CHLORIDE INJ 40 MEQ in SODIUM CHLORIDE 0.9% IV 500 ML 130 MEQ IVPB (16:43)
[2022-04-19] MEDS: MAGNESIUM SULF 2 GM/WATER 50ML 2 GM/50 ML BAG IVPB (16:43)
[2022-04-19 18:22] LABS: Glucose Point of Care 115 mg/dl (65-105)
[2022-04-20] VITALS (11 sets, daily range): BP systolic 124–153; BP diastolic 78–86; PULSE 68–84; RESP 16–20; TEMP 35.9–36.2; O2SAT 97–99
[2022-04-20 00:29] LABS: Glucose Point of Care 118 mg/dl (65-105)
[2022-04-20] MEDS: MORPHINE SULFATE (*CRX) 2 MG/ML INJ IV PUSH ×3 (01:44→23:10)
[2022-04-20 05:40] LABS: Glucose Point of Care 124 mg/dl (65-105)
[2022-04-20] MEDS: LEVOTHYROXINE SODIUM INJ 100 MCG/5 ML VIAL 75 MCG IV PUSH (05:42)
[2022-04-20] MEDS: ALTEPLASE 2 MG VIAL (CATHFLO) IV PUSH (06:35)
[2022-04-20] MEDS: SALINE LOCK FLUSH 10 ML IV PUSH ×3 (06:39→21:53)
[2022-04-20 07:19] LABS: Basophils Percent Auto 0.6 % (0.2-1.2); Eosinophils Absolute Auto 0.1 K/mm3 (0-0.3); Eosinophils Percent Auto 1.5 % (0-4.4); Hematocrit 41.2 % (37.0-47.0); Hemoglobin 13.6 g/dL (12.0-15.0); Immature Granulocyte Absolute 0.05 K/mm3 (0.00-0.031); Immature Granulocyte Percent A 0.9 % (0-0.5); Lymphocytes Absolute Auto 0.88 K/mm3 (0.9-3.2); Lymphocytes Percent Auto 16.7 % (18.3-44.2); Mean Corpuscular Hemoglobin 31.7 pg (26-34); Mean Platelet Volume 9.4 fl (7.4-10.4); Monocytes Absolute Auto 0.3 K/mm3 (0.1-0.6); Monocytes Percent Auto 5.9 % (2.6-8.5); Neutrophils Absolute Auto 3.9 K/mm3 (1.3-6.7); Neutrophils Percent Auto 74.4 % (45.5-73.1); Platelet Count Result 187 k/mm3 (150-375); Red Blood Count 4.29 M/mm3 (4.2-5.4); Red Cell Distribution Width 16.1 % (11.5-14.5); White Blood Count 5.3 K/mm3 (4.5-10.0)
[2022-04-20 07:46] LABS: Alanine Aminotransferase 18 U/L (6-35); Albumin Level 3.1 g/dL (3.5-5.1); Alkaline Phosphatase 75 U/L (38-126); Anion Gap 10 mmol/L (8-16); Aspartate Amino Transferase 20 U/L (14-36); Bilirubin,Total 0.5 mg/dL (0.2-1.3); Blood Urea Nitrogen 6 mg/dL (7-17); Calcium 7.5 mg/dL (8.4-10.2); Carbon Dioxide 23 mmol/L (22-30); Chloride 102 mmol/L (98-107); Estimated CRCL calculation 143 ml/min; Estimated Glomerular Filt Rate > 60; Glucose 103 mg/dL (65-110); Potassium 4.6 mmol/L (3.4-5.0); Sodium 135 mmol/L (137-145)
[2022-04-20] MEDS: FOLIC ACID 1 MG/0.2 ML INJ IV PUSH (08:58)
[2022-04-20] MEDS: METOPROLOL TARTRATE INJ 5 MG/5 ML VIAL IV PUSH ×2 (09:03→17:31)
[2022-04-20] MEDS: PANTOPRAZOLE SODIUM IV 40 MG VIAL IV PUSH ×2 (09:05→21:51)
--- NOTE | 2022-04-20 09:05 | PM.IMPN ---
Progress Note: A&P Assessment and Plan (1) Anxiety: Code(s): F41.9 - Anxiety disorder, unspecified Status: Acute Assessment and Plan: Ativan as needed Appears a little worse today (2) Dysphagia: Code(s): R13.10 - Dysphagia, unspecified Status: Acute Assessment and Plan: failed MBS, transfer pending to [facility] concern for underlying malignancy due to mediastinal lymphadenopathy, workup pending via [facility], records pending concern for underlying neurological etiology possible? scheduled to see neurology as an outpatient follow-up at [facility] Tube feedings via Dobhoff Brain MRI within normal limits (3) Epigastric pain: Code(s): R10.13 - Epigastric pain Status: Acute Assessment and Plan: resolved (4) GERD (gastroesophageal reflux disease): Code(s): K21.9 - Gastro-esophageal reflux disease without esophagitis Status: Acute Assessment and Plan: PPI (5) Quadriplegia: Code(s): G82.50 - Quadriplegia, unspecified Status: Acute Assessment and Plan: supportive care (6) Hypothyroidism: Code(s): E03.9 - Hypothyroidism, unspecified Status: Acute Assessment and Plan: continue levothyroxine, follow-up outpatient for further management (7) UTI (urinary tract infection): Qualifiers: Hematuria presence: without hematuria Urinary tract infection type: acute cystitis Qualified Code(s): N30.00 - Acute cystitis without hematuria Code(s): N39.0 - Urinary tract infection, site not specified Status: Acute Assessment and Plan: Completed course of Rocephin (8) Mediastinal lymphadenopathy: Code(s): R59.0 - Localized enlarged lymph nodes Status: Acute Assessment and Plan: scheduled for endoscopic ultrasound biopsy at [facility] 04/15, had to be put on hold, transfer pending patient supposedly has positive lung cancer markers and is scheduled to follow-up with pulmonology at [facility] later this month Plan DVT prophylaxis with SCDs GI prophylaxis with PPI Code status full code Subjective Date/time seen: 04/20/22 09:05 Interval history: No overnight events noted. No chest pain or shortness of breath. No nausea, vomiting or diarrhea. No fevers or chills. Patient tearful, requesting anxiety medication and pain medication. States she hurts all over. Review of Systems Review of Systems: 12 point review of systems was assessed and was negative except as noted in the HPI Exam Narrative: General: No acute distress, alert and oriented per baseline HEENT: Atraumatic, normocephalic, mucous membranes moist CV: Regular rate and rhythm, S1, S2 Lungs: Clear to auscultation bilaterally, no rales or crackles noted, no wheezes, good air entry Abdomen: Soft, nontender, nondistended Extremities: Normal to inspection Skin: No rashes noted, no lesions or wounds seen Psych: Euthymic, normal affect Objective Data Vital Signs Vital Signs: Vital Signs - 24 hr 04/19/22 09:57 04/19/22 14:30 04/19/22 12:00 Temperature 97.4 F L Pulse Rate 90 84 84 Respiratory Rate 16 Blood Pressure 145/90 H Pulse Oximetry 96 04/19/22 16:00 04/19/22 20:00 04/20/22 00:00 Temperature Pulse Rate 73 77 82 Respiratory Rate Blood Pressure Pulse Oximetry 04/20/22 04:00 04/20/22 06:00 04/20/22 09:03 Temperature 97.1 F L Pulse Rate 74 78 78 Respiratory Rate 20 Blood Pressure 124/84 Pulse Oximetry 99 Intake/Output Intake/Output: Intake & Output 04/17/22 04/18/22 04/19/22 04/20/22 23:59 23:59 23:59 23:59 Intake Total 1000 2040 2750 Output Total 3770 724 0032 750 Balance 0 1390 1300 -750 Meds/Results Medications: Active Medications Generic Name Dose Route Start Last Admin Trade Name Freq PRN Reason Stop Dose Admin Alteplase, Recombinant 2 mg 04/20/22 06:08 04/20/22 06:35 Alteplase 2 Mg Vial (Cathflo) IV PUSH 2 mg ONCE PRN Administr
[2022-04-20] MEDS: POTASSIUM CHLORIDE 20 MEQ PACKET (FOR LIQUID) 40 MEQ FEED TUBE ×2 (09:06→11:59)
[2022-04-20 11:39] LABS: Glucose Point of Care 119 mg/dl (65-105)
[2022-04-20] MEDS: KCL 40 MEQ/0.9% SOD CHL 1,000 ML 75 ML IV CONT (12:02)
--- NOTE | 2022-04-20 15:43 | WPDGIPROGNO ---
Progress Note: A&P Assessment and Plan (1) Dysphagia: Code(s): R13.10 - Dysphagia, unspecified Status: Acute Assessment and Plan: Patient failed her modified barium swallow test. It is suspected this is related to her underlying neurological disorder. Neurological workup has been performed at [facility]. We are uncertain as to the etiology and whether this is reversible. Patient may benefit from PEG tube. But I would prefer to do defer this until a further understanding of what her neurological deterioration is based on. If patient is expected to improve then PEG tube would not be indicated at this point. Anticipate the patient will be transferred to [facility] for continued workup as she has had extensive workup that is ongoing at that institution. Patient has been followed at the GI service at [facility] for quite some time. Apparently has had normal EGDs previously. [place] currently to have oropharyngeal dysphagia. (2) Mediastinal lymphadenopathy: Code(s): R59.0 - Localized enlarged lymph nodes Status: Acute Assessment and Plan: Patient with mediastinal lymphadenopathy. Patient was anticipated to have outpatient endoscopic biopsy of this performed at [facility]. This was not accomplished because she was admitted to our institution. Plan is for patient to follow up with the invasive endoscopy team for this procedure. This is not available at our institution. Anticipate this will be done at [facility]. She is known to the GI service there and has been followed for quite some time because of her dysphagia and other GI problems. (3) Anxiety: Code(s): F41.9 - Anxiety disorder, unspecified Status: Acute Assessment and Plan: Patient cries on little notice. Unable to get significant history from her she appears quite anxious. Unable to give an accurate history given emotional state (4) Neurological disease: Code(s): G98.8 - Other disorders of nervous system Status: Acute Assessment and Plan: neuro followed up for her deteriorating neurological condition is advised. (5) UTI (urinary tract infection): Qualifiers: Hematuria presence: without hematuria Urinary tract infection type: acute cystitis Qualified Code(s): N30.00 - Acute cystitis without hematuria Code(s): N39.0 - Urinary tract infection, site not specified Status: Acute Subjective Date/time seen: 04/20/22 15:43 Patient very emotional today. Difficult to answer any questions as she tends to cry with any statement. Patient now receiving nutrition via Dobbhoff tube. HEENT exam reveals no icterus. Lungs appear clear. Heart without murmur. Abdomen is obese soft nontender. Review of Systems Review of Systems: Review of systems noncontributory. Exam Narrative: For physical exam reveals patient be alert. Dobbhoff tube in pace. HEENT exam reveals no icterus. Lungs are clear. Heart without murmur. Abdomen is obese. Bowel sounds are present soft nontender with no organomegaly. Objective Data Vital Signs Vital Signs: Vital Signs - 24 hr 04/19/22 16:00 04/19/22 20:00 04/20/22 00:00 Temperature Pulse Rate 73 77 82 Respiratory Rate Blood Pressure Pulse Oximetry 04/20/22 04:00 04/20/22 06:00 04/20/22 09:03 Temperature 97.1 F L Pulse Rate 74 78 78 Respiratory Rate 20 Blood Pressure 124/84 Pulse Oximetry 99 04/20/22 08:00 04/20/22 12:00 Temperature Pulse Rate 80 82 Respiratory Rate Blood Pressure Pulse Oximetry Intake/Output Intake/Output: Intake & Output 04/17/22 04/18/22 04/19/22 04/20/22 23:59 23:59 23:59 23:59 Intake Total 1000 2040 3750 Output Total 6297 325 8243 750 Balance 0 1390 2300 -750 Meds/Results Medications: Active Medications Generic Name Dose Route Start Last Admin Trade Name Freq PRN Reason Stop Dose Admin
[2022-04-20 17:49] LABS: Glucose Point of Care 100 mg/dl (65-105)
[2022-04-20] MEDS: LORazepam INJ (*CRX) 2 MG/ML VIAL 1 MG IV PUSH (23:09)
[2022-04-20 23:34] LABS: Glucose Point of Care 100 mg/dl (65-105)
[2022-04-21] VITALS (11 sets, daily range): BP systolic 143–156; BP diastolic 88–97; PULSE 71–91; RESP 12–16; TEMP 35.8–36.4; O2SAT 97–99
[2022-04-21] MEDS: KCL 40 MEQ/0.9% SOD CHL 1,000 ML 75 ML IV CONT ×2 (01:36→15:45)
[2022-04-21] MEDS: LEVOTHYROXINE SODIUM INJ 100 MCG/5 ML VIAL 75 MCG IV PUSH (06:23)
[2022-04-21 06:39] LABS: Glucose Point of Care 125 mg/dl (65-105)
[2022-04-21 06:45] LABS: Basophils Percent Auto 0.4 % (0.2-1.2); Eosinophils Absolute Auto 0.1 K/mm3 (0-0.3); Eosinophils Percent Auto 2.2 % (0-4.4); Hematocrit 38.8 % (37.0-47.0); Hemoglobin 12.6 g/dL (12.0-15.0); Immature Granulocyte Absolute 0.07 K/mm3 (0.00-0.031); Immature Granulocyte Percent A 1.5 % (0-0.5); Lymphocytes Percent Auto 17.4 % (18.3-44.2); Mean Corpuscular HGB Conc 32.5 g/dl (32-36); Mean Corpuscular Hemoglobin 31.7 pg (26-34); Mean Corpuscular Volume 97.7 fl (80-100); Mean Platelet Volume 9.5 fl (7.4-10.4); Monocytes Absolute Auto 0.3 K/mm3 (0.1-0.6); Monocytes Percent Auto 5.7 % (2.6-8.5); Neutrophils Absolute Auto 3.3 K/mm3 (1.3-6.7); Neutrophils Percent Auto 72.8 % (45.5-73.1); Platelet Count Result 168 k/mm3 (150-375); Red Blood Count 3.97 M/mm3 (4.2-5.4); Red Cell Distribution Width 16.1 % (11.5-14.5); White Blood Count 4.6 K/mm3 (4.5-10.0)
[2022-04-21 06:55] LABS: Alanine Aminotransferase 19 U/L (6-35); Albumin Level 2.9 g/dL (3.5-5.1); Alkaline Phosphatase 71 U/L (38-126); Anion Gap 7 mmol/L (8-16); Aspartate Amino Transferase 20 U/L (14-36); Bilirubin,Total 0.6 mg/dL (0.2-1.3); Blood Urea Nitrogen 5 mg/dL (7-17); Calcium 7.5 mg/dL (8.4-10.2); Carbon Dioxide 24 mmol/L (22-30); Chloride 100 mmol/L (98-107); Estimated CRCL calculation 143 ml/min; Estimated Glomerular Filt Rate > 60; Glucose 111 mg/dL (65-110); Potassium 4.3 mmol/L (3.4-5.0); Sodium 131 mmol/L (137-145)
[2022-04-21] MEDS: PERMETHRIN 1% LIQUID 59 ML BOTTLE 1 APPLIC TOPICAL (08:57)
[2022-04-21] MEDS: POTASSIUM CHLORIDE 20 MEQ PACKET (FOR LIQUID) 40 MEQ FEED TUBE ×2 (08:58→12:12)
[2022-04-21] MEDS: PANTOPRAZOLE SODIUM IV 40 MG VIAL IV PUSH ×2 (08:59→19:54)
[2022-04-21] MEDS: METOPROLOL TARTRATE INJ 5 MG/5 ML VIAL IV PUSH ×2 (09:04→16:40)
[2022-04-21] MEDS: FOLIC ACID 1 MG/0.2 ML INJ IV PUSH (09:04)
[2022-04-21] MEDS: MORPHINE SULFATE (*CRX) 2 MG/ML INJ IV PUSH ×2 (09:08→19:55)
--- NOTE | 2022-04-21 10:06 | PM.IMPN ---
Progress Note: A&P Assessment and Plan (1) Anxiety: Code(s): F41.9 - Anxiety disorder, unspecified Status: Acute Assessment and Plan: Ativan as needed Worsened with the discovery of lice (2) Dysphagia: Code(s): R13.10 - Dysphagia, unspecified Status: Acute Assessment and Plan: Failed MBS, transfer pending to [facility] Concern for underlying malignancy due to mediastinal lymphadenopathy, workup pending via [facility], records pending Concern for underlying neurological etiology possible? scheduled to see neurology as an outpatient follow-up at [facility] Tube feedings via Dobhoff Brain MRI within normal limits (3) Epigastric pain: Code(s): R10.13 - Epigastric pain Status: Acute Assessment and Plan: Resolved (4) GERD (gastroesophageal reflux disease): Code(s): K21.9 - Gastro-esophageal reflux disease without esophagitis Status: Acute Assessment and Plan: PPI (5) Quadriplegia: Code(s): G82.50 - Quadriplegia, unspecified Status: Acute Assessment and Plan: Supportive care (6) Hypothyroidism: Code(s): E03.9 - Hypothyroidism, unspecified Status: Acute Assessment and Plan: Continue levothyroxine, follow-up outpatient for further management (7) UTI (urinary tract infection): Qualifiers: Hematuria presence: without hematuria Urinary tract infection type: acute cystitis Qualified Code(s): N30.00 - Acute cystitis without hematuria Code(s): N39.0 - Urinary tract infection, site not specified Status: Acute Assessment and Plan: Completed course of Rocephin (8) Mediastinal lymphadenopathy: Code(s): R59.0 - Localized enlarged lymph nodes Status: Acute Assessment and Plan: Scheduled for endoscopic ultrasound biopsy at [facility] 04/15, had to be put on hold, transfer pending patient supposedly has positive lung cancer markers and is scheduled to follow-up with pulmonology at [facility] later this month (9) Hyponatremia: Code(s): E87.1 - Hypo-osmolality and hyponatremia Status: Acute Assessment and Plan: Worsening from yesterday, down to 131 from 135 Plan DVT prophylaxis with SCDs GI prophylaxis with PPI Code status full code Subjective Date/time seen: 04/21/22 10:06 Interval history: No overnight events noted. No chest pain or shortness of breath. No nausea, vomiting or diarrhea. No fevers or chills. Patient was found to have lice, she is having her hair combed and cut to remove the lice. Review of Systems Review of Systems: 12 point review of systems was assessed and was negative except as noted in the HPI Exam Narrative: General: Patient is tearful, struggling with having her hair cut and trimmed for lice, many tangles causing some pain HEENT: Atraumatic, normocephalic, mucous membranes moist CV: Regular rate and rhythm, S1, S2 Lungs: Clear to auscultation bilaterally, no rales or crackles noted, no wheezes, good air entry Abdomen: Soft, nontender, nondistended Extremities: Normal to inspection Skin: No rashes noted, no lesions or wounds seen Psych: Tearful Objective Data Vital Signs Vital Signs: Vital Signs - 24 hr 04/20/22 12:00 04/20/22 16:00 04/20/22 14:00 Temperature 96.7 F L Pulse Rate 82 78 84 Respiratory Rate 16 Blood Pressure 152/86 H Pulse Oximetry 97 04/20/22 17:31 04/20/22 22:00 04/21/22 06:00 Temperature 97.0 F L 97.3 F L Pulse Rate 75 68 91 Respiratory Rate 18 16 Blood Pressure 153/78 H 156/97 H Pulse Oximetry 98 99 04/20/22 20:00 04/21/22 00:00 04/21/22 04:00 Temperature Pulse Rate 73 76 88 Respiratory Rate Blood Pressure Pulse Oximetry 04/21/22 09:04 Temperature Pulse Rate 81 Respiratory Rate Blood Pressure Pulse Oximetry Intake/Output Intake/Output: Intake & Output 04/18/22 04/19/22 04/20/22 04/21/22 23:59 23:59 23:59 23:59 Intake Total 2039 3750 0 1
--- NOTE | 2022-04-21 11:38 | PCNFU ---
Nutrition Follow-Up Complete: Severe malnutrition related to swallowing issue, self-feeding difficulty as evidenced by patient report of poor intake and weight loss -30%/3 months Goal: Meet estimated needs Pt current nutrition is NPO, Tube feeding: Jevity 1.5 @ 50ml/hr. Nutrition recommendation: continue with current plan of care. Last recorded weight is 86kg- up from 76kg on admission Bowel Motility: +BM 04/20 Labs Reviewed: Alb:2.9, NA:131, BUN:5, Cr:0.3, Glu:111 Meds Noted: protonix, folic acid, KCL Skin: no skin issues noted. Additional Notes: Pt continues on tube feedings, currently at goal rate and tolerating well. Current tube feeding provides 1650kcals, 70g protein, 836ml free water. Flushes of 150ml q 4 hrs for a total of 1736ml free water. Agree with orders. Continue with current plan of care. Monitoring tube feed, wt, labs. Follow up every /Fridays.
[2022-04-21 12:05] LABS: Glucose Point of Care 117 mg/dl (65-105)
[2022-04-21] MEDS: SALINE LOCK FLUSH 10 ML IV PUSH ×2 (13:28→19:56)
[2022-04-21 17:56] LABS: Glucose Point of Care 80 mg/dl (65-105)
[2022-04-22] VITALS (11 sets, daily range): BP systolic 130–144; BP diastolic 83–89; PULSE 80–96; RESP 16–20; TEMP 35.9–36.4; O2SAT 98–100
[2022-04-22 01:56] LABS: Glucose Point of Care 76 mg/dl (65-105)
[2022-04-22 02:12] LABS: Glucose Point of Care 138 mg/dl (65-105)
[2022-04-22] MEDS: SALINE LOCK FLUSH 10 ML IV PUSH ×3 (05:34→21:22)
[2022-04-22] MEDS: KCL 40 MEQ/0.9% SOD CHL 1,000 ML 75 ML IV CONT (05:34)
[2022-04-22] MEDS: LEVOTHYROXINE SODIUM INJ 100 MCG/5 ML VIAL 75 MCG IV PUSH (05:35)
[2022-04-22 06:00] LABS: Basophils Percent Auto 0.5 % (0.2-1.2); Eosinophils Absolute Auto 0.2 K/mm3 (0-0.3); Eosinophils Percent Auto 2.7 % (0-4.4); Hematocrit 41.3 % (37.0-47.0); Hemoglobin 13.7 g/dL (12.0-15.0); Immature Granulocyte Absolute 0.06 K/mm3 (0.00-0.031); Lymphocytes Absolute Auto 0.91 K/mm3 (0.9-3.2); Lymphocytes Percent Auto 15.2 % (18.3-44.2); Mean Corpuscular HGB Conc 33.2 g/dl (32-36); Mean Corpuscular Hemoglobin 32.4 pg (26-34); Mean Corpuscular Volume 97.6 fl (80-100); Mean Platelet Volume 9.6 fl (7.4-10.4); Monocytes Absolute Auto 0.4 K/mm3 (0.1-0.6); Monocytes Percent Auto 6.5 % (2.6-8.5); Neutrophils Absolute Auto 4.4 K/mm3 (1.3-6.7); Neutrophils Percent Auto 74.1 % (45.5-73.1); Platelet Count Result 196 k/mm3 (150-375); Red Blood Count 4.23 M/mm3 (4.2-5.4)
[2022-04-22 06:12] LABS: Alanine Aminotransferase 23 U/L (6-35); Albumin Level 3.2 g/dL (3.5-5.1); Alkaline Phosphatase 75 U/L (38-126); Anion Gap 10 mmol/L (8-16); Aspartate Amino Transferase 24 U/L (14-36); Bilirubin,Total 0.6 mg/dL (0.2-1.3); Blood Urea Nitrogen 6 mg/dL (7-17); Carbon Dioxide 26 mmol/L (22-30); Chloride 96 mmol/L (98-107); Estimated CRCL calculation 143 ml/min; Estimated Glomerular Filt Rate > 60; Glucose 111 mg/dL (65-110); Potassium 4.6 mmol/L (3.4-5.0); Sodium 132 mmol/L (137-145)
[2022-04-22] MEDS: POTASSIUM CHLORIDE 20 MEQ PACKET (FOR LIQUID) 40 MEQ FEED TUBE ×3 (08:43→17:01)
[2022-04-22] MEDS: METOPROLOL TARTRATE INJ 5 MG/5 ML VIAL IV PUSH ×2 (08:43→17:01)
[2022-04-22] MEDS: FOLIC ACID 1 MG/0.2 ML INJ IV PUSH (08:43)
[2022-04-22] MEDS: PANTOPRAZOLE SODIUM IV 40 MG VIAL IV PUSH ×2 (08:44→21:21)
[2022-04-22 11:56] LABS: Glucose Point of Care 136 mg/dl (65-105)
--- NOTE | 2022-04-22 16:14 | PM.IMPN ---
Progress Note: A&P Assessment and Plan (1) Anxiety: Code(s): F41.9 - Anxiety disorder, unspecified Status: Acute Assessment and Plan: Ativan as needed Worsened with the discovery of lice (2) Dysphagia: Code(s): R13.10 - Dysphagia, unspecified Status: Acute Assessment and Plan: Failed MBS, transfer pending to [facility] Concern for underlying malignancy due to mediastinal lymphadenopathy, workup pending via [facility], records pending Concern for underlying neurological etiology possible? scheduled to see neurology as an outpatient follow-up at [facility] Tube feedings via Dobhoff Brain MRI within normal limits (3) Epigastric pain: Code(s): R10.13 - Epigastric pain Status: Acute Assessment and Plan: Resolved (4) GERD (gastroesophageal reflux disease): Code(s): K21.9 - Gastro-esophageal reflux disease without esophagitis Status: Acute Assessment and Plan: PPI (5) Quadriplegia: Code(s): G82.50 - Quadriplegia, unspecified Status: Acute Assessment and Plan: Supportive care unclear etiology protein electrophoresis with M spike faint (6) Hypothyroidism: Code(s): E03.9 - Hypothyroidism, unspecified Status: Acute Assessment and Plan: Continue levothyroxine, follow-up outpatient for further management TSH mildly high at 6.8 (7) UTI (urinary tract infection): Qualifiers: Hematuria presence: without hematuria Urinary tract infection type: acute cystitis Qualified Code(s): N30.00 - Acute cystitis without hematuria Code(s): N39.0 - Urinary tract infection, site not specified Status: Acute Assessment and Plan: Completed course of Rocephin (8) Mediastinal lymphadenopathy: Code(s): R59.0 - Localized enlarged lymph nodes Status: Acute Assessment and Plan: Scheduled for endoscopic ultrasound biopsy at [facility] 04/15, had to be put on hold, transfer pending patient supposedly has positive lung cancer markers and is scheduled to follow-up with pulmonology at [facility] later this month (9) Hyponatremia: Code(s): E87.1 - Hypo-osmolality and hyponatremia Status: Acute Assessment and Plan: Worsening from yesterday, down to 131 from 135 Plan DVT prophylaxis with SCDs GI prophylaxis with PPI Code status full code Subjective Date/time seen: 04/22/22 16:14 Interval history: No overnight events. Denies any new complaints. Bilateral upper and lower extremity weakness which has been ongoing since past few months. His at follow-up with [facility] and had workup done there. She is awaiting a bed placement at [facility] for further evaluation. She is scheduled to get a biopsy of a mass in her throat? Review of Systems Review of Systems: All systems reviewed & are unremarkable except as noted in HPI and below Exam Narrative: General: Patient is tearfulAt times HEENT: Atraumatic, normocephalic, mucous membranes moist CV: Regular rate and rhythm, S1, S2 Lungs: Clear to auscultation bilaterally, no rales or crackles noted, no wheezes, good air entry Abdomen: Soft, nontender, nondistended Extremities: Normal to inspection Skin: No rashes noted, no lesions or wounds seen Psych: Tearful Objective Data Vital Signs Vital Signs: Vital Signs - 24 hr 04/21/22 16:40 04/21/22 22:00 04/21/22 20:00 Temperature 97.6 F Pulse Rate 88 91 Respiratory Rate 16 Blood Pressure 143/88 H Pulse Oximetry 97 Oxygen Delivery Room Air 04/21/22 20:00 04/22/22 00:00 04/22/22 04:00 Temperature Pulse Rate 84 81 91 Respiratory Rate Blood Pressure Pulse Oximetry Oxygen Delivery 04/22/22 06:00 04/22/22 08:43 04/22/22 08:00 Temperature 97.6 F Pulse Rate 93 88 90 Respiratory Rate 20 Blood Pressure 140/83 Pulse Oximetry 99 Oxygen Delivery 04/22/22 12:00 04/22/22 14:00 Temperature 96.6 F L Pulse Rat
[2022-04-22] MEDS: LORazepam INJ (*CRX) 2 MG/ML VIAL 1 MG IV PUSH (18:10)
[2022-04-22 18:13] LABS: Glucose Point of Care 129 mg/dl (65-105)
--- NOTE | 2022-04-22 22:27 | PC.NURSE ---
Patient pulled out Dobhoff NG tube @ 3470. Notified provider and pt will receive a new NG tube under fluoroscopy tomorrow.
[2022-04-23 00:36] LABS: Glucose Point of Care 95 mg/dl (65-105)
[2022-04-23] MEDS: LEVOTHYROXINE SODIUM INJ 100 MCG/5 ML VIAL 75 MCG IV PUSH (05:41)
[2022-04-23] MEDS: SALINE LOCK FLUSH 10 ML IV PUSH ×3 (05:41→21:11)
--- NOTE | 2022-04-23 05:46 | PC.NURSE ---
24 hour urine collection beginning at 04/23/22 @0000
[2022-04-23 06:00] VITALS: BP 107/80; PULSE 95; RESP 16; TEMP 36.2; O2SAT 98
[2022-04-23 06:02] LABS: Alanine Aminotransferase 24 U/L (6-35); Albumin Level 3.2 g/dL (3.5-5.1); Alkaline Phosphatase 71 U/L (38-126); Anion Gap 12 mmol/L (8-16); Aspartate Amino Transferase 23 U/L (14-36); Bilirubin,Total 0.6 mg/dL (0.2-1.3); Blood Urea Nitrogen 5 mg/dL (7-17); Calcium 8.3 mg/dL (8.4-10.2); Carbon Dioxide 22 mmol/L (22-30); Chloride 100 mmol/L (98-107); Estimated CRCL calculation 143 ml/min; Estimated Glomerular Filt Rate > 60; Glucose 90 mg/dL (65-110); Sodium 134 mmol/L (137-145)
[2022-04-23 07:16] LABS: Glucose Point of Care 98 mg/dl (65-105)
[2022-04-23] MEDS: FOLIC ACID 1 MG/0.2 ML INJ IV PUSH (09:12)
[2022-04-23] MEDS: PANTOPRAZOLE SODIUM IV 40 MG VIAL IV PUSH ×2 (09:13→21:10)
[2022-04-23 09:14] VITALS: PULSE 78
[2022-04-23] MEDS: METOPROLOL TARTRATE INJ 5 MG/5 ML VIAL IV PUSH ×2 (09:14→16:51)
[2022-04-23 10:58] LABS: Basophils Percent Auto 0.5 % (0.2-1.2); Eosinophils Absolute Auto 0.2 K/mm3 (0-0.3); Eosinophils Percent Auto 2.3 % (0-4.4); Hematocrit 42.3 % (37.0-47.0); Immature Granulocyte Absolute 0.08 K/mm3 (0.00-0.031); Immature Granulocyte Percent A 1.2 % (0-0.5); Lymphocytes Absolute Auto 0.98 K/mm3 (0.9-3.2); Lymphocytes Percent Auto 15.1 % (18.3-44.2); Mean Corpuscular HGB Conc 33.1 g/dl (32-36); Mean Corpuscular Hemoglobin 32.3 pg (26-34); Mean Corpuscular Volume 97.7 fl (80-100); Mean Platelet Volume 9.4 fl (7.4-10.4); Monocytes Absolute Auto 0.5 K/mm3 (0.1-0.6); Monocytes Percent Auto 7.5 % (2.6-8.5); Neutrophils Absolute Auto 4.8 K/mm3 (1.3-6.7); Neutrophils Percent Auto 73.4 % (45.5-73.1); Platelet Count Result 215 k/mm3 (150-375); Red Blood Count 4.33 M/mm3 (4.2-5.4); Red Cell Distribution Width 16.4 % (11.5-14.5); White Blood Count 6.5 K/mm3 (4.5-10.0)
--- NOTE | 2022-04-23 12:00 | PC.NURSE ---
Told Dr. Boss that pt ripped out dobhoff last night. Night nurse told this nurse of her findings overnight. Pt told this nurse that she would allow another dobhoff to be placed.
[2022-04-23 12:33] LABS: Glucose Point of Care 93 mg/dl (65-105)
[2022-04-23 14:00] VITALS: BP 119/89; PULSE 83; RESP 17; TEMP 36; O2SAT 96
--- NOTE | 2022-04-23 16:36 | PM.IMPN ---
Progress Note: A&P Assessment and Plan (1) Anxiety: Code(s): F41.9 - Anxiety disorder, unspecified Status: Acute Assessment and Plan: Ativan as needed Worsened with the discovery of lice (2) Dysphagia: Code(s): R13.10 - Dysphagia, unspecified Status: Acute Assessment and Plan: Failed MBS, transfer pending to [facility] Concern for underlying malignancy due to mediastinal lymphadenopathy, workup pending via [facility], records pending Concern for underlying neurological etiology possible? scheduled to see neurology as an outpatient follow-up at [facility] Tube feedings via Dobhoff Brain MRI within normal limits Dobbhoff replacement today (3) Epigastric pain: Code(s): R10.13 - Epigastric pain Status: Acute Assessment and Plan: Resolved (4) GERD (gastroesophageal reflux disease): Code(s): K21.9 - Gastro-esophageal reflux disease without esophagitis Status: Acute Assessment and Plan: PPI (5) Quadriplegia: Code(s): G82.50 - Quadriplegia, unspecified Status: Acute Assessment and Plan: Supportive care unclear etiology protein electrophoresis with M spike faint (6) Hypothyroidism: Code(s): E03.9 - Hypothyroidism, unspecified Status: Acute Assessment and Plan: Continue levothyroxine, follow-up outpatient for further management TSH mildly high at 6.8 (7) UTI (urinary tract infection): Qualifiers: Hematuria presence: without hematuria Urinary tract infection type: acute cystitis Qualified Code(s): N30.00 - Acute cystitis without hematuria Code(s): N39.0 - Urinary tract infection, site not specified Status: Acute Assessment and Plan: Completed course of Rocephin (8) Mediastinal lymphadenopathy: Code(s): R59.0 - Localized enlarged lymph nodes Status: Acute Assessment and Plan: Scheduled for endoscopic ultrasound biopsy at [facility] 04/15, had to be put on hold, transfer pending patient supposedly has positive lung cancer markers and is scheduled to follow-up with pulmonology at [facility] later this month (9) Hyponatremia: Code(s): E87.1 - Hypo-osmolality and hyponatremia Status: Acute Assessment and Plan: Worsening from yesterday, down to 131 from 135 Plan DVT prophylaxis with SCDs GI prophylaxis with PPI Code status full code Subjective Date/time seen: 04/23/22 16:36 Interval history: Overnight her Dobbhoff came off. No other complaints. Denies any abdominal pain nausea vomiting. Awaiting bed at [facility]. Review of Systems Review of Systems: All systems reviewed & are unremarkable except as noted in HPI and below Exam Narrative: General: Patient is Alert and oriented x3 no acute distress HEENT: Atraumatic, normocephalic, mucous membranes moist CV: Regular rate and rhythm, S1, S2 Lungs: Clear to auscultation bilaterally, no rales or crackles noted, no wheezes, good air entry Abdomen: Soft, nontender, nondistended Extremities: Normal to inspection Skin: No rashes noted, no lesions or wounds seen Psych: Tearful Objective Data Vital Signs Vital Signs: Vital Signs - 24 hr 04/22/22 17:01 04/22/22 20:00 04/22/22 22:00 Temperature 96.9 F L Pulse Rate 80 88 Respiratory Rate 16 Blood Pressure 144/89 H Pulse Oximetry 98 Oxygen Delivery Room Air 04/22/22 20:00 04/23/22 06:00 04/23/22 09:14 Temperature 97.1 F L Pulse Rate 96 95 78 Respiratory Rate 16 Blood Pressure 107/80 Pulse Oximetry 98 Oxygen Delivery 04/23/22 14:00 Temperature 96.8 F L Pulse Rate 83 Respiratory Rate 17 Blood Pressure 119/89 Pulse Oximetry 96 Oxygen Delivery Intake/Output Intake/Output: Intake & Output 04/20/22 04/21/22 04/22/22 04/23/22 23:59 23:59 23:59 23:59 Intake Total 0 2280 1000 Output Total 5874 955 9989 1000 Balance -1650 1480 -925 -1000 Meds/Results Medications: Active Medicati
[2022-04-23 16:51] VITALS: PULSE 90
[2022-04-23 18:26] LABS: Glucose Point of Care 88 mg/dl (65-105)
[2022-04-23] MEDS: LORazepam INJ (*CRX) 2 MG/ML VIAL 1 MG IV PUSH (21:51)
[2022-04-23 22:49] VITALS: BP 127/84; PULSE 93; RESP 18; TEMP 36.7; O2SAT 97
[2022-04-24 00:41] LABS: Glucose Point of Care 90 mg/dl (65-105)
[2022-04-24] MEDS: MORPHINE SULFATE (*CRX) 2 MG/ML INJ IV PUSH ×2 (02:50→18:28)
[2022-04-24] MEDS: SALINE LOCK FLUSH 10 ML IV PUSH ×3 (05:21→20:15)
[2022-04-24] MEDS: LEVOTHYROXINE SODIUM INJ 100 MCG/5 ML VIAL 75 MCG IV PUSH (05:30)
[2022-04-24 05:41] LABS: Glucose Point of Care 95 mg/dl (65-105)
[2022-04-24 06:00] VITALS: BP 123/45; PULSE 93; RESP 18; TEMP 36.9; O2SAT 97
[2022-04-24 07:32] LABS: Basophils Percent Auto 0.6 % (0.2-1.2); Eosinophils Absolute Auto 0.1 K/mm3 (0-0.3); Eosinophils Percent Auto 2.2 % (0-4.4); Hematocrit 40.9 % (37.0-47.0); Hemoglobin 13.5 g/dL (12.0-15.0); Immature Granulocyte Absolute 0.06 K/mm3 (0.00-0.031); Lymphocytes Absolute Auto 0.98 K/mm3 (0.9-3.2); Lymphocytes Percent Auto 15.6 % (18.3-44.2); Mean Corpuscular Hemoglobin 31.8 pg (26-34); Mean Corpuscular Volume 96.5 fl (80-100); Mean Platelet Volume 9.7 fl (7.4-10.4); Monocytes Absolute Auto 0.5 K/mm3 (0.1-0.6); Monocytes Percent Auto 7.8 % (2.6-8.5); Neutrophils Absolute Auto 4.6 K/mm3 (1.3-6.7); Neutrophils Percent Auto 72.8 % (45.5-73.1); Platelet Count Result 226 k/mm3 (150-375); Red Blood Count 4.24 M/mm3 (4.2-5.4); Red Cell Distribution Width 16.7 % (11.5-14.5); White Blood Count 6.3 K/mm3 (4.5-10.0)
[2022-04-24 08:14] LABS: Alanine Aminotransferase 30 U/L (6-35); Albumin Level 3.1 g/dL (3.5-5.1); Alkaline Phosphatase 67 U/L (38-126); Anion Gap 13 mmol/L (8-16); Aspartate Amino Transferase 27 U/L (14-36); Bilirubin,Total 0.7 mg/dL (0.2-1.3); Blood Urea Nitrogen 12 mg/dL (7-17); Calcium 8.4 mg/dL (8.4-10.2); Carbon Dioxide 22 mmol/L (22-30); Chloride 101 mmol/L (98-107); Estimated CRCL calculation 112 ml/min; Estimated Glomerular Filt Rate > 60; Glucose 87 mg/dL (65-110); Potassium 3.5 mmol/L (3.4-5.0); Sodium 136 mmol/L (137-145)
[2022-04-24 09:21] VITALS: PULSE 98
[2022-04-24] MEDS: LORazepam INJ (*CRX) 2 MG/ML VIAL 1 MG IV PUSH ×2 (09:21→20:53)
[2022-04-24] MEDS: PANTOPRAZOLE SODIUM IV 40 MG VIAL IV PUSH ×2 (09:21→20:15)
[2022-04-24] MEDS: METOPROLOL TARTRATE INJ 5 MG/5 ML VIAL IV PUSH ×2 (09:21→16:16)
[2022-04-24] MEDS: FOLIC ACID 1 MG/0.2 ML INJ IV PUSH (09:22)
--- NOTE | 2022-04-24 10:37 | PC.NURSE ---
spoke to Dr. Howe about pts dobbhoff with the tip being in the stomach. provider stated okay to restart feeding at this time.
--- NOTE | 2022-04-24 11:16 | PCNFU ---
Nutrition Follow-Up Complete: Severe malnutrition related to swallowing issue, self-feeding difficulty as evidenced by patient report of poor intake and weight loss -30%/3 months Goal:Increase PO intake as tolerated- not able to meet goal Meet estimated needs - Goal being met through Dobhoff tube feeding Pt current nutrition is Jevity 1.5 @50 ml/h with 150 ml flushes q 4 hours providing 1650kcals, 70g protein, 1736ml free water. Nutrition recommendation: Continue current tube feeding orders and flushes Last recorded weight is 74.5 kg. Bowel Motility: Loose stools 04/23/22 Labs Reviewed: Alb 3.1, Na 136, Creat 0.4 Meds Noted: Protonix, folic acid Skin: WNL Additional Notes: Pt pulled out the Dobhoff tube overnight, another one is placed and okay to start using. Continue current orders. Monitoring plan of care, intakes, supplement tolerance, weights. Follow up in 3 days.
[2022-04-24 11:55] LABS: Glucose Point of Care 87 mg/dl (65-105)
[2022-04-24] MEDS: POTASSIUM CHLORIDE 20 MEQ PACKET (FOR LIQUID) 40 MEQ FEED TUBE ×2 (13:00→16:16)
[2022-04-24 14:00] VITALS: BP 114/77; PULSE 84; RESP 18; TEMP 35.7; O2SAT 97
--- NOTE | 2022-04-24 14:28 | PM.IMPN ---
Progress Note: A&P Assessment and Plan (1) Anxiety: Code(s): F41.9 - Anxiety disorder, unspecified Status: Acute Assessment and Plan: Ativan as needed Worsened with the discovery of lice (2) Dysphagia: Code(s): R13.10 - Dysphagia, unspecified Status: Acute Assessment and Plan: Failed MBS, transfer pending to [facility] Concern for underlying malignancy due to mediastinal lymphadenopathy, workup pending via [facility], records pending Concern for underlying neurological etiology possible? scheduled to see neurology as an outpatient follow-up at [facility] Tube feedings via Dobhoff Brain MRI within normal limits Dobbhoff replaced and will reinitiate tube feeds (3) Epigastric pain: Code(s): R10.13 - Epigastric pain Status: Acute Assessment and Plan: Resolved (4) GERD (gastroesophageal reflux disease): Code(s): K21.9 - Gastro-esophageal reflux disease without esophagitis Status: Acute Assessment and Plan: PPI (5) Quadriplegia: Code(s): G82.50 - Quadriplegia, unspecified Status: Acute Assessment and Plan: Supportive care unclear etiology protein electrophoresis with M spike faint Immunofixation test ordered EMG nerve conduction study 03/02/2022: Abnormal absent response from left peroneal motor nerve patient had left fibular fracture on 01/22/2022 slight right sural sensory neuropathy. 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 Subcarinal nodule difficult to separate from the esophagus but also likely represents a lymph node. Endoscopy evaluation for esophagus recommended. 1.7 cm right adrenal nodule (6) Hypothyroidism: Code(s): E03.9 - Hypothyroidism, unspecified Status: Acute Assessment and Plan: Continue levothyroxine, follow-up outpatient for further management TSH mildly high at 6.8 (7) UTI (urinary tract infection): Qualifiers: Hematuria presence: without hematuria Urinary tract infection type: acute cystitis Qualified Code(s): N30.00 - Acute cystitis without hematuria Code(s): N39.0 - Urinary tract infection, site not specified Status: Acute Assessment and Plan: Completed course of Rocephin (8) Mediastinal lymphadenopathy: Code(s): R59.0 - Localized enlarged lymph nodes Status: Acute Assessment and Plan: Scheduled for endoscopic ultrasound biopsy at [facility] 04/15, had to be put on hold, transfer pending patient supposedly has positive lung cancer markers and is scheduled to follow-up with pulmonology at [facility] later this month (9) Hyponatremia: Code(s): E87.1 - Hypo-osmolality and hyponatremia Status: Acute Assessment and Plan: Worsening from yesterday, down to 131 from 135 Plan DVT prophylaxis with SCDs GI prophylaxis with PPI Code status full code Subjective Date/time seen: 04/24/22 14:28 Interval history: She got her Dobbhoff replaced today. Dobbhoff is located with his tip in the stomach. Denies any other complaints. She is still awaited bed placement at [facility]. Review of Systems Review of Systems: All systems reviewed & are unremarkable except as noted in HPI and below Exam Narrative: General: Patient is Alert and oriented x3 no acute distress HEENT: Atraumatic, normocephalic, mucous membranes moist CV: Regular rate and rhythm, S1, S2 Lungs: Clear to auscultation bilaterally, no rales or crackles noted, no wheezes, good air entry Abdomen: Soft, nontender, nondistended Extremities: Normal to inspection Skin: No rashes noted, no lesions or wounds seen Psych: Tearful Objective Data Vital Signs
[2022-04-24 16:16] VITALS: PULSE 80
[2022-04-24 22:00] VITALS: BP 135/88; PULSE 85; RESP 18; TEMP 36.2; O2SAT 98
[2022-04-25] MEDS: MORPHINE SULFATE (*CRX) 2 MG/ML INJ IV PUSH ×3 (00:43→20:22)
--- NOTE | 2022-04-25 03:11 | PC.NURSE ---
Upon the beginning of fast food shift lead pt was crying in regards to her brother Horace leaving her and pt stating, don't leave me to . Pt is highly emotional; yelling and stating she can't breathe, pt vitals obtained at that moment in time and WNL. Pt remains emotional and sensitive but able to console and calm her anxiety via meds; Ativan and morphine IVP. In addition to, putting on her chapstick, wiping her face with a cold towel, and repositioning. Pt comfortable and cooperative at 0325.
[2022-04-25] MEDS: SALINE LOCK FLUSH 10 ML IV PUSH ×3 (05:22→20:23)
[2022-04-25] MEDS: SALINE LOCK FLUSH 20 ML IV PUSH (05:23)
[2022-04-25] MEDS: LEVOTHYROXINE SODIUM INJ 100 MCG/5 ML VIAL 75 MCG IV PUSH (05:23)
[2022-04-25 06:00] VITALS: BP 122/88; PULSE 91; RESP 17; TEMP 36.8; O2SAT 96
[2022-04-25] MEDS: ALTEPLASE 2 MG VIAL (CATHFLO) IV PUSH (06:40)
[2022-04-25 06:56] LABS: Basophils Percent Auto 0.4 % (0.2-1.2); Eosinophils Absolute Auto 0.1 K/mm3 (0-0.3); Eosinophils Percent Auto 2.4 % (0-4.4); Hematocrit 39.2 % (37.0-47.0); Hemoglobin 12.7 g/dL (12.0-15.0); Immature Granulocyte Absolute 0.07 K/mm3 (0.00-0.031); Immature Granulocyte Percent A 1.4 % (0-0.5); Lymphocytes Absolute Auto 0.85 K/mm3 (0.9-3.2); Lymphocytes Percent Auto 17.2 % (18.3-44.2); Mean Corpuscular HGB Conc 32.4 g/dl (32-36); Mean Corpuscular Hemoglobin 31.8 pg (26-34); Mean Platelet Volume 9.4 fl (7.4-10.4); Monocytes Absolute Auto 0.4 K/mm3 (0.1-0.6); Monocytes Percent Auto 8.5 % (2.6-8.5); Neutrophils Absolute Auto 3.5 K/mm3 (1.3-6.7); Neutrophils Percent Auto 70.1 % (45.5-73.1); Platelet Count Result 247 k/mm3 (150-375); Red Cell Distribution Width 16.8 % (11.5-14.5); White Blood Count 4.9 K/mm3 (4.5-10.0)
[2022-04-25 07:10] LABS: Alanine Aminotransferase 29 U/L (6-35); Albumin Level 3.3 g/dL (3.5-5.1); Alkaline Phosphatase 78 U/L (38-126); Anion Gap 5 mmol/L (8-16); Aspartate Amino Transferase 20 U/L (14-36); Bilirubin,Total 0.5 mg/dL (0.2-1.3); Blood Urea Nitrogen 18 mg/dL (7-17); Calcium 8.4 mg/dL (8.4-10.2); Carbon Dioxide 24 mmol/L (22-30); Chloride 107 mmol/L (98-107); Estimated CRCL calculation 112 ml/min; Estimated Glomerular Filt Rate > 60; Glucose 130 mg/dL (65-110); Potassium 4.4 mmol/L (3.4-5.0); Sodium 136 mmol/L (137-145)
[2022-04-25 08:00] LABS: Glucose Point of Care 155 mg/dl (65-105)
[2022-04-25 08:37] VITALS: PULSE 70
[2022-04-25] MEDS: POTASSIUM CHLORIDE 20 MEQ PACKET (FOR LIQUID) 40 MEQ FEED TUBE ×3 (08:37→16:26)
[2022-04-25] MEDS: METOPROLOL TARTRATE INJ 5 MG/5 ML VIAL IV PUSH ×2 (08:37→16:26)
[2022-04-25] MEDS: PANTOPRAZOLE SODIUM IV 40 MG VIAL IV PUSH ×2 (08:37→20:22)
[2022-04-25] MEDS: FOLIC ACID 1 MG/0.2 ML INJ IV PUSH (08:38)
[2022-04-25] MEDS: LORazepam INJ (*CRX) 2 MG/ML VIAL 1 MG IV PUSH ×3 (10:09→23:09)
[2022-04-25 12:05] LABS: Glucose Point of Care 159 mg/dl (65-105)
--- NOTE | 2022-04-25 13:11 | PM.IMPN ---
Progress Note: A&P Assessment and Plan (1) Anxiety: Code(s): F41.9 - Anxiety disorder, unspecified Status: Acute Assessment and Plan: Ativan as needed Worsened with the discovery of lice (2) Dysphagia: Code(s): R13.10 - Dysphagia, unspecified Status: Acute Assessment and Plan: Failed MBS, transfer pending to [facility] Concern for underlying malignancy due to mediastinal lymphadenopathy, workup pending via [facility], records pending Concern for underlying neurological etiology possible? scheduled to see neurology as an outpatient follow-up at [facility] Tube feedings via Dobhoff Brain MRI within normal limits Dobbhoff replaced and reinitiated tube feeds (3) Epigastric pain: Code(s): R10.13 - Epigastric pain Status: Acute Assessment and Plan: Resolved (4) GERD (gastroesophageal reflux disease): Code(s): K21.9 - Gastro-esophageal reflux disease without esophagitis Status: Acute Assessment and Plan: PPI (5) Quadriplegia: Code(s): G82.50 - Quadriplegia, unspecified Status: Acute Assessment and Plan: Supportive care unclear etiology protein electrophoresis with M spike faint Immunofixation test ordered EMG nerve conduction study 03/02/2022: Abnormal absent response from left peroneal motor nerve patient had left fibular fracture on 01/22/2022 slight right sural sensory neuropathy. 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 Subcarinal nodule difficult to separate from the esophagus but also likely represents a lymph node. Endoscopy evaluation for esophagus recommended. 1.7 cm right adrenal nodule (6) Hypothyroidism: Code(s): E03.9 - Hypothyroidism, unspecified Status: Acute Assessment and Plan: Continue levothyroxine, follow-up outpatient for further management TSH mildly high at 6.8 (7) UTI (urinary tract infection): Qualifiers: Hematuria presence: without hematuria Urinary tract infection type: acute cystitis Qualified Code(s): N30.00 - Acute cystitis without hematuria Code(s): N39.0 - Urinary tract infection, site not specified Status: Acute Assessment and Plan: Completed course of Rocephin (8) Mediastinal lymphadenopathy: Code(s): R59.0 - Localized enlarged lymph nodes Status: Acute Assessment and Plan: Scheduled for endoscopic ultrasound biopsy at [facility] 04/15, had to be put on hold, transfer pending patient supposedly has positive lung cancer markers and is scheduled to follow-up with pulmonology at [facility] later this month (9) Hyponatremia: Code(s): E87.1 - Hypo-osmolality and hyponatremia Status: Acute Assessment and Plan: Mild stable Plan DVT prophylaxis with SCDs GI prophylaxis with PPI Code status full code Subjective Date/time seen: 04/25/22 13:11 Interval history: no new complaints. Tube feeds running well without any complications. Review of Systems Review of Systems: All systems reviewed & are unremarkable except as noted in HPI and below Exam Narrative: General: Patient is Alert and oriented x3 no acute distress HEENT: Atraumatic, normocephalic, mucous membranes moist CV: Regular rate and rhythm, S1, S2 Lungs: Clear to auscultation bilaterally, no rales or crackles noted, no wheezes, good air entry Abdomen: Soft, nontender, nondistended Extremities: Normal to inspection Skin: No rashes noted, no lesions or wounds seen Psych: anxious Objective Data Vital Signs Vital Signs: Vital Signs - 24 hr 04/24/22 16:16 04/24/22 14:00 04/24/22 20:00 Temperature 96.3 F L Pulse Rate 80 84 Respiratory Rate
[2022-04-25 14:00] VITALS: BP 137/79; PULSE 86; RESP 20; TEMP 36.7; O2SAT 97
[2022-04-25 16:26] VITALS: PULSE 80
[2022-04-25 20:47] LABS: Glucose Point of Care 138 mg/dl (65-105)
[2022-04-25 22:00] VITALS: BP 138/76; PULSE 84; RESP 18; TEMP 36.4; O2SAT 98
[2022-04-26] MEDS: MORPHINE SULFATE (*CRX) 2 MG/ML INJ IV PUSH ×3 (02:15→22:36)
[2022-04-26] MEDS: LORazepam INJ (*CRX) 2 MG/ML VIAL 1 MG IV PUSH ×3 (04:25→17:01)
[2022-04-26] MEDS: SALINE LOCK FLUSH 10 ML IV PUSH ×3 (05:07→22:36)
[2022-04-26 05:52] LABS: Basophils Percent Auto 0.6 % (0.2-1.2); Eosinophils Absolute Auto 0.2 K/mm3 (0-0.3); Eosinophils Percent Auto 2.3 % (0-4.4); Hematocrit 39.5 % (37.0-47.0); Hemoglobin 12.7 g/dL (12.0-15.0); Immature Granulocyte Absolute 0.05 K/mm3 (0.00-0.031); Immature Granulocyte Percent A 0.7 % (0-0.5); Lymphocytes Absolute Auto 1.24 K/mm3 (0.9-3.2); Mean Corpuscular HGB Conc 32.2 g/dl (32-36); Mean Corpuscular Hemoglobin 31.4 pg (26-34); Mean Corpuscular Volume 97.8 fl (80-100); Mean Platelet Volume 9.3 fl (7.4-10.4); Monocytes Absolute Auto 0.5 K/mm3 (0.1-0.6); Monocytes Percent Auto 7.1 % (2.6-8.5); Neutrophils Absolute Auto 4.9 K/mm3 (1.3-6.7); Neutrophils Percent Auto 71.3 % (45.5-73.1); Platelet Count Result 249 k/mm3 (150-375); Red Blood Count 4.04 M/mm3 (4.2-5.4); Red Cell Distribution Width 16.6 % (11.5-14.5); White Blood Count 6.9 K/mm3 (4.5-10.0)
[2022-04-26 05:59] LABS: Alanine Aminotransferase 25 U/L (6-35); Albumin Level 3.6 g/dL (3.5-5.1); Alkaline Phosphatase 66 U/L (38-126); Anion Gap 8 mmol/L (8-16); Aspartate Amino Transferase 21 U/L (14-36); Bilirubin,Total 0.5 mg/dL (0.2-1.3); Blood Urea Nitrogen 15 mg/dL (7-17); Calcium 8.5 mg/dL (8.4-10.2); Carbon Dioxide 23 mmol/L (22-30); Chloride 104 mmol/L (98-107); Estimated CRCL calculation 143 ml/min; Estimated Glomerular Filt Rate > 60; Glucose 133 mg/dL (65-110); Potassium 4.3 mmol/L (3.4-5.0); Sodium 135 mmol/L (137-145)
[2022-04-26 06:00] VITALS: BP 125/85; PULSE 99; RESP 17; TEMP 37.1; O2SAT 96
[2022-04-26] MEDS: LEVOTHYROXINE SODIUM INJ 100 MCG/5 ML VIAL 75 MCG IV PUSH (06:07)
[2022-04-26 08:31] VITALS: PULSE 72
[2022-04-26] MEDS: FOLIC ACID 1 MG/0.2 ML INJ IV PUSH (08:31)
[2022-04-26] MEDS: POTASSIUM CHLORIDE 20 MEQ PACKET (FOR LIQUID) 40 MEQ FEED TUBE ×3 (08:31→16:56)
[2022-04-26] MEDS: METOPROLOL TARTRATE INJ 5 MG/5 ML VIAL IV PUSH (08:31)
[2022-04-26] MEDS: PANTOPRAZOLE SODIUM IV 40 MG VIAL IV PUSH ×2 (08:31→22:32)
[2022-04-26 12:12] LABS: Glucose Point of Care 122 mg/dl (65-105)
--- NOTE | 2022-04-26 13:57 | PM.IMPN ---
Progress Note: A&P Assessment and Plan (1) Anxiety: Code(s): F41.9 - Anxiety disorder, unspecified Status: Acute Assessment and Plan: Ativan as needed Worsened with the discovery of lice restart buspirone and duloxetin (if can be given via feeding tube) (2) Dysphagia: Code(s): R13.10 - Dysphagia, unspecified Status: Acute Assessment and Plan: Failed MBS, transfer pending to [facility] Concern for underlying malignancy due to mediastinal lymphadenopathy, workup pending via [facility], records pending Concern for underlying neurological etiology possible? scheduled to see neurology as an outpatient follow-up at [facility] Tube feedings via Dobhoff Brain MRI within normal limits Dobbhoff replaced and reinitiated tube feeds (3) Epigastric pain: Code(s): R10.13 - Epigastric pain Status: Acute Assessment and Plan: Resolved (4) GERD (gastroesophageal reflux disease): Code(s): K21.9 - Gastro-esophageal reflux disease without esophagitis Status: Acute Assessment and Plan: PPI (5) Quadriplegia: Code(s): G82.50 - Quadriplegia, unspecified Status: Acute Assessment and Plan: Supportive care unclear etiology protein electrophoresis with M spike faint Immunofixation test ordered EMG nerve conduction study 03/02/2022: Abnormal absent response from left peroneal motor nerve patient had left fibular fracture on 01/22/2022 slight right sural sensory neuropathy. 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 Subcarinal nodule difficult to separate from the esophagus but also likely represents a lymph node. Endoscopy evaluation for esophagus recommended. 1.7 cm right adrenal nodule (6) Hypothyroidism: Code(s): E03.9 - Hypothyroidism, unspecified Status: Acute Assessment and Plan: Continue levothyroxine, follow-up outpatient for further management TSH mildly high at 6.8 (7) UTI (urinary tract infection): Qualifiers: Hematuria presence: without hematuria Urinary tract infection type: acute cystitis Qualified Code(s): N30.00 - Acute cystitis without hematuria Code(s): N39.0 - Urinary tract infection, site not specified Status: Acute Assessment and Plan: Completed course of Rocephin (8) Mediastinal lymphadenopathy: Code(s): R59.0 - Localized enlarged lymph nodes Status: Acute Assessment and Plan: Scheduled for endoscopic ultrasound biopsy at [facility] 04/15, had to be put on hold, transfer pending patient supposedly has positive lung cancer markers and is scheduled to follow-up with pulmonology at [facility] later this month (9) Hyponatremia: Code(s): E87.1 - Hypo-osmolality and hyponatremia Status: Acute Assessment and Plan: Mild stable Plan DVT prophylaxis with SCDs GI prophylaxis with PPI Code status full code Subjective Date/time seen: 04/26/22 13:57 Interval history: no new complaints. Tube feeds running well without any complicationsfeels anxious. Review of Systems Review of Systems: All systems reviewed & are unremarkable except as noted in HPI and below Exam Narrative: General: Patient is Alert and oriented x3 no acute distress HEENT: Atraumatic, normocephalic, mucous membranes moist CV: Regular rate and rhythm, S1, S2 Lungs: Clear to auscultation bilaterally, no rales or crackles noted, no wheezes, good air entry Abdomen: Soft, nontender, nondistended Extremities: Normal to inspection Skin: No rashes noted, no lesions or wounds seen Psych: anxious Objective Data Vital Signs Vital Signs: Vital Signs - 24 hr 04/25/22 14:00 04/25/22 16
[2022-04-26 14:00] VITALS: BP 136/79; PULSE 91; RESP 20; TEMP 36.9; O2SAT 96
[2022-04-26 22:00] VITALS: BP 130/79; PULSE 100; RESP 17; TEMP 36.9; O2SAT 93
[2022-04-26 22:33] VITALS: PULSE 102
[2022-04-26] MEDS: METOPROLOL TARTRATE 25 MG TABLET FEED TUBE (22:33)
[2022-04-26] MEDS: FAMOTIDINE 20 MG TABLET FEED TUBE (22:33)
[2022-04-26] MEDS: busPIRone HCL 10 MG TABLET FEED TUBE (22:35)
[2022-04-27] MEDS: LORazepam INJ (*CRX) 2 MG/ML VIAL 1 MG IV PUSH ×2 (00:26→17:57)
[2022-04-27 06:00] VITALS: BP 132/80; PULSE 102; RESP 18; TEMP 36.6; O2SAT 94
[2022-04-27 06:16] LABS: Basophils Percent Auto 0.4 % (0.2-1.2); Eosinophils Absolute Auto 0.2 K/mm3 (0-0.3); Eosinophils Percent Auto 3.6 % (0-4.4); Hematocrit 41.3 % (37.0-47.0); Hemoglobin 13.4 g/dL (12.0-15.0); Immature Granulocyte Absolute 0.06 K/mm3 (0.00-0.031); Immature Granulocyte Percent A 1.1 % (0-0.5); Lymphocytes Absolute Auto 1.13 K/mm3 (0.9-3.2); Lymphocytes Percent Auto 21.6 % (18.3-44.2); Mean Corpuscular HGB Conc 32.4 g/dl (32-36); Mean Corpuscular Volume 98.6 fl (80-100); Mean Platelet Volume 9.2 fl (7.4-10.4); Monocytes Absolute Auto 0.4 K/mm3 (0.1-0.6); Monocytes Percent Auto 8.2 % (2.6-8.5); Neutrophils Absolute Auto 3.4 K/mm3 (1.3-6.7); Neutrophils Percent Auto 65.1 % (45.5-73.1); Platelet Count Result 260 k/mm3 (150-375); Red Blood Count 4.19 M/mm3 (4.2-5.4); Red Cell Distribution Width 16.4 % (11.5-14.5); White Blood Count 5.2 K/mm3 (4.5-10.0)
[2022-04-27 06:24] LABS: Alanine Aminotransferase 26 U/L (6-35); Albumin Level 3.6 g/dL (3.5-5.1); Alkaline Phosphatase 82 U/L (38-126); Anion Gap 9 mmol/L (8-16); Aspartate Amino Transferase 20 U/L (14-36); Bilirubin,Total 0.6 mg/dL (0.2-1.3); Blood Urea Nitrogen 16 mg/dL (7-17); Calcium 8.7 mg/dL (8.4-10.2); Carbon Dioxide 23 mmol/L (22-30); Chloride 102 mmol/L (98-107); Estimated CRCL calculation 143 ml/min; Estimated Glomerular Filt Rate > 60; Glucose 116 mg/dL (65-110); Magnesium 2.3 mg/dL (1.6-2.3); Potassium 4.5 mmol/L (3.4-5.0); Sodium 134 mmol/L (137-145)
[2022-04-27] MEDS: SALINE LOCK FLUSH 10 ML IV PUSH ×3 (06:28→21:38)
[2022-04-27] MEDS: LEVOTHYROXINE SODIUM 150 MCG TABLET FEED TUBE (06:29)
[2022-04-27] MEDS: POTASSIUM CHLORIDE 20 MEQ PACKET (FOR LIQUID) 40 MEQ FEED TUBE ×3 (10:13→17:47)
[2022-04-27 10:14] VITALS: PULSE 100
[2022-04-27] MEDS: PANTOPRAZOLE SODIUM IV 40 MG VIAL IV PUSH ×2 (10:14→21:38)
[2022-04-27] MEDS: busPIRone HCL 10 MG TABLET FEED TUBE ×2 (10:14→21:39)
[2022-04-27] MEDS: THIAMINE HCL 100 MG TABLET FEED TUBE (10:14)
[2022-04-27] MEDS: METOPROLOL TARTRATE 25 MG TABLET FEED TUBE ×2 (10:14→21:37)
[2022-04-27] MEDS: FOLIC ACID 1 MG TABLET FEED TUBE (10:14)
[2022-04-27] MEDS: ATORVASTATIN 40 MG TABLET FEED TUBE (10:14)
[2022-04-27] MEDS: FAMOTIDINE 20 MG TABLET FEED TUBE ×2 (10:14→21:38)
[2022-04-27] MEDS: MORPHINE SULFATE (*CRX) 2 MG/ML INJ IV PUSH ×3 (10:15→21:36)
--- NOTE | 2022-04-27 11:59 | PM.IMPN ---
Progress Note: A&P Assessment and Plan (1) Anxiety: Code(s): F41.9 - Anxiety disorder, unspecified Status: Acute Assessment and Plan: Ativan as needed Worsened with the discovery of lice restart buspirone and duloxetin (if can be given via feeding tube) (2) Dysphagia: Code(s): R13.10 - Dysphagia, unspecified Status: Acute Assessment and Plan: Failed MBS, transfer pending to [facility] Concern for underlying malignancy due to mediastinal lymphadenopathy, workup pending via [facility], records pending Concern for underlying neurological etiology possible? scheduled to see neurology as an outpatient follow-up at [facility] Tube feedings via Dobhoff Brain MRI within normal limits Dobbhoff replaced and reinitiated tube feeds (3) Epigastric pain: Code(s): R10.13 - Epigastric pain Status: Acute Assessment and Plan: Resolved (4) GERD (gastroesophageal reflux disease): Code(s): K21.9 - Gastro-esophageal reflux disease without esophagitis Status: Acute Assessment and Plan: PPI (5) Quadriplegia: Code(s): G82.50 - Quadriplegia, unspecified Status: Acute Assessment and Plan: Supportive care unclear etiology protein electrophoresis with M spike faint Immunofixation test ordered EMG nerve conduction study 03/02/2022: Abnormal absent response from left peroneal motor nerve patient had left fibular fracture on 01/22/2022 slight right sural sensory neuropathy. 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 Subcarinal nodule difficult to separate from the esophagus but also likely represents a lymph node. Endoscopy evaluation for esophagus recommended. 1.7 cm right adrenal nodule (6) Hypothyroidism: Code(s): E03.9 - Hypothyroidism, unspecified Status: Acute Assessment and Plan: Continue levothyroxine, follow-up outpatient for further management TSH mildly high at 6.8 (7) UTI (urinary tract infection): Qualifiers: Hematuria presence: without hematuria Urinary tract infection type: acute cystitis Qualified Code(s): N30.00 - Acute cystitis without hematuria Code(s): N39.0 - Urinary tract infection, site not specified Status: Acute Assessment and Plan: Completed course of Rocephin (8) Mediastinal lymphadenopathy: Code(s): R59.0 - Localized enlarged lymph nodes Status: Acute Assessment and Plan: Scheduled for endoscopic ultrasound biopsy at [facility] 04/15, had to be put on hold, transfer pending patient supposedly has positive lung cancer markers and is scheduled to follow-up with pulmonology at [facility] later this month (9) Hyponatremia: Code(s): E87.1 - Hypo-osmolality and hyponatremia Status: Acute Assessment and Plan: Mild stable Plan DVT prophylaxis with SCDs GI prophylaxis with PPI Code status full code Subjective Date/time seen: 04/27/22 11:59 Interval history: no new complaints. feeling pretty good. Anxiety has improved Tube feeds running well without any complications Review of Systems Review of Systems: All systems reviewed & are unremarkable except as noted in HPI and below Exam Narrative: General: Patient is Alert and oriented x3 no acute distress HEENT: Atraumatic, normocephalic, mucous membranes moist CV: Regular rate and rhythm, S1, S2 Lungs: Clear to auscultation bilaterally, no rales or crackles noted, no wheezes, good air entry Abdomen: Soft, nontender, nondistended Extremities: Normal to inspection Skin: No rashes noted, no lesions or wounds seen Psych: normal mood Objective Data Vital Signs Vital Signs: Vital Signs - 24 hr
[2022-04-27 12:06] LABS: Glucose Point of Care 122 mg/dl (65-105)
[2022-04-27 14:00] VITALS: BP 127/83; PULSE 78; RESP 12; TEMP 36.1; O2SAT 97
[2022-04-27 17:36] LABS: Glucose Point of Care 134 mg/dl (65-105)
[2022-04-27 21:37] VITALS: PULSE 107
[2022-04-27 21:49] LABS: Glucose Point of Care 144 mg/dl (65-105)
[2022-04-27 22:00] VITALS: BP 146/120; PULSE 104; RESP 16; TEMP 36.8; O2SAT 98
[2022-04-28] MEDS: LORazepam INJ (*CRX) 2 MG/ML VIAL 1 MG IV PUSH ×4 (00:06→23:35)
--- NOTE | 2022-04-28 02:47 | PC.NURSE ---
Pt pulled out dobhoff NG Tube at 0246. NG tubing on floor. Pt just pulled it out right before entering the room.
--- NOTE | 2022-04-28 03:59 | PC.NURSE ---
Pt yelling for her brother, Taye throughout the night. Pt consistently pulling and touching objects on her face and gown. Pt was made aware consistently to stop pulling on objects around her for safety. Pt yells she wants to get up and walk.
[2022-04-28] MEDS: MORPHINE SULFATE (*CRX) 2 MG/ML INJ IV PUSH ×2 (04:19→20:20)
[2022-04-28] MEDS: SALINE LOCK FLUSH 10 ML IV PUSH ×3 (05:48→20:20)
[2022-04-28 06:00] VITALS: BP 109/66; PULSE 89; RESP 18; TEMP 36.7; O2SAT 96
[2022-04-28 08:38] VITALS: PULSE 86
[2022-04-28] MEDS: FOLIC ACID 1 MG TABLET FEED TUBE (08:38)
[2022-04-28] MEDS: THIAMINE HCL 100 MG TABLET FEED TUBE (08:38)
[2022-04-28] MEDS: POTASSIUM CHLORIDE 20 MEQ PACKET (FOR LIQUID) 40 MEQ FEED TUBE ×2 (08:38→17:18)
[2022-04-28] MEDS: METOPROLOL TARTRATE 25 MG TABLET FEED TUBE ×2 (08:38→20:19)
[2022-04-28] MEDS: ATORVASTATIN 40 MG TABLET FEED TUBE (08:39)
[2022-04-28] MEDS: busPIRone HCL 10 MG TABLET FEED TUBE ×2 (08:39→20:19)
[2022-04-28] MEDS: PANTOPRAZOLE SODIUM IV 40 MG VIAL IV PUSH ×2 (08:39→20:19)
[2022-04-28] MEDS: FAMOTIDINE 20 MG TABLET FEED TUBE ×2 (08:39→20:19)
--- NOTE | 2022-04-28 10:17 | PCNFU ---
Nutrition Follow-Up Complete: Severe malnutrition related to swallowing issue, self-feeding difficulty as evidenced by patient report of poor intake and weight loss -30%/3 months Goal: Meet estimated needs Pt current nutrition is Jevity 1.5 @50 ml/h with 150 ml flushes q 4 hours providing 1650kcals, 70g protein, 1736ml free water. Nutrition recommendation: Continue with current plan of care. Last recorded weight is 74.5 kg. Bowel Motility: 04/27 Labs Reviewed: NA:134, Cr:0.3, glu:144 Meds Noted: protonix, folic acid, KCL Skin:WNL Additional Notes: pt removed tube again. Dobhoff replaced this morning. Tube feedings to resume. Continue with current orders for tube feedings as pt was tolerating well and meeting estimated needs. Monitoring plan of care, intakes, supplement tolerance, weights. Follow up every Wednesday/Wednesday.
[2022-04-28 12:03] LABS: Glucose Point of Care 155 mg/dl (65-105)
[2022-04-28 14:00] VITALS: BP 125/79; PULSE 92; RESP 14; TEMP 35.9; O2SAT 97
--- NOTE | 2022-04-28 15:50 | PM.IMPN ---
Progress Note: A&P Assessment and Plan (1) Anxiety: Code(s): F41.9 - Anxiety disorder, unspecified Status: Acute Assessment and Plan: Ativan as needed Worsened with the discovery of lice restart buspirone and duloxetin (if can be given via feeding tube) (2) Dysphagia: Code(s): R13.10 - Dysphagia, unspecified Status: Acute Assessment and Plan: Failed MBS, transfer pending to [facility] Concern for underlying malignancy due to mediastinal lymphadenopathy, workup pending via [facility], records pending Concern for underlying neurological etiology possible? scheduled to see neurology as an outpatient follow-up at [facility] Tube feedings via Dobhoff Brain MRI within normal limits Dobbhoff replaced and reinitiated tube feeds (3) Epigastric pain: Code(s): R10.13 - Epigastric pain Status: Acute Assessment and Plan: Resolved (4) GERD (gastroesophageal reflux disease): Code(s): K21.9 - Gastro-esophageal reflux disease without esophagitis Status: Acute Assessment and Plan: PPI (5) Quadriplegia: Code(s): G82.50 - Quadriplegia, unspecified Status: Acute Assessment and Plan: Supportive care unclear etiology protein electrophoresis with M spike faint Immunofixation test ordered EMG nerve conduction study 03/02/2022: Abnormal absent response from left peroneal motor nerve patient had left fibular fracture on 01/22/2022 slight right sural sensory neuropathy. Absent response from right superficial peroneal nerve absence response from left median and ulnar sensory nerves suggestive of left median and ulnar sensory neuropathy abnormal right tibial motor nerve Paraneoplastic panel : High anti Hu low B1 B6 CT Chest : Mediastinal lymphadenopathy concerning for malignancy of indeterminate origin. Subcarinal nodule difficult to separate from the esophagus but also likely represents a lymph node. Endoscopy evaluation for esophagus recommended. 1.7 cm right adrenal nodule unclear etiology unsure what workup has been done at [facility] in the past. Everyone has opted for her to go back to [facility] for ongoing care and continued treatment/evaluation. We are still waiting for bed placement at [facility]. (6) Hypothyroidism: Code(s): E03.9 - Hypothyroidism, unspecified Status: Acute Assessment and Plan: Continue levothyroxine, follow-up outpatient for further management TSH mildly high at 6.8 (7) UTI (urinary tract infection): Qualifiers: Hematuria presence: without hematuria Urinary tract infection type: acute cystitis Qualified Code(s): N30.00 - Acute cystitis without hematuria Code(s): N39.0 - Urinary tract infection, site not specified Status: Acute Assessment and Plan: Completed course of Rocephin (8) Mediastinal lymphadenopathy: Code(s): R59.0 - Localized enlarged lymph nodes Status: Acute Assessment and Plan: Scheduled for endoscopic ultrasound biopsy at [facility] 04/15, had to be put on hold, transfer pending patient supposedly has positive lung cancer markers and is scheduled to follow-up with pulmonology at [facility] later this month (9) Hyponatremia: Code(s): E87.1 - Hypo-osmolality and hyponatremia Status: Acute Assessment and Plan: Mild stable Plan DVT prophylaxis with SCDs GI prophylaxis with PPI Code status full code Subjective Date/time seen: 04/28/22 15:50 Interval history: overnight she removed her Dobbhoff accidentally. This is already been replaced and tube feeds started. No other complaints. With still waiting for bed placement at [facility] for transfer and further treatment /evaluation Review of Systems Review of Systems: All systems reviewed & are unremarkable except as noted in HPI and below Exam Narrative: General: Patient is Alert and oriented x3 no acute distress HEENT: [place]
[2022-04-28 18:46] LABS: Glucose Point of Care 135 mg/dl (65-105)
[2022-04-28 20:19] VITALS: PULSE 87
[2022-04-28 21:48] VITALS: BP 124/82; PULSE 75; RESP 16; TEMP 36.3; O2SAT 93
[2022-04-28 23:37] LABS: Glucose Point of Care 149 mg/dl (65-105)
--- NOTE | 2022-04-29 01:39 | PC.NURSE ---
pt removed dobhoff. Feeding stopped, Leisure Studies Professor notified.
[2022-04-29] MEDS: SALINE LOCK FLUSH 10 ML IV PUSH ×3 (04:07→20:26)
[2022-04-29 05:55] VITALS: BP 122/76; PULSE 97; RESP 16; TEMP 36.6; O2SAT 96
[2022-04-29 09:16] LABS: Glucose Point of Care 142 mg/dl (65-105)
[2022-04-29] MEDS: PANTOPRAZOLE SODIUM IV 40 MG VIAL IV PUSH ×2 (11:02→20:26)
[2022-04-29] MEDS: MORPHINE SULFATE (*CRX) 2 MG/ML INJ IV PUSH (11:02)
[2022-04-29 13:10] LABS: Glucose Point of Care 108 mg/dl (65-105)
[2022-04-29 13:49] VITALS: BP 151/93; PULSE 102; RESP 20; TEMP 36.6; O2SAT 96
--- NOTE | 2022-04-29 15:15 | PCSTNOTE ---
Please refer to the Bedside Swallow Evaluation in the EMR. Please note, silent aspiration cannot be ruled out at bedside.
--- NOTE | 2022-04-29 15:44 | PCSTNOTE ---
Please refer to the Modified Barium Swallow Evaluation in the EMR.
--- NOTE | 2022-04-29 17:02 | PM.IMPN ---
Progress Note: A&P Assessment and Plan (1) Anxiety: Code(s): F41.9 - Anxiety disorder, unspecified Status: Acute Assessment and Plan: Ativan as needed Worsened with the discovery of lice restart buspirone and duloxetin (if can be given via feeding tube) (2) Dysphagia: Code(s): R13.10 - Dysphagia, unspecified Status: Acute Assessment and Plan: Failed MBS, transfer pending to [facility] Concern for underlying malignancy due to mediastinal lymphadenopathy, workup pending via [facility], records pending Concern for underlying neurological etiology possible? scheduled to see neurology as an outpatient follow-up at [facility] Tube feedings via Dobhoff Brain MRI within normal limits Dobbhoff replaced and reinitiated tube feeds (3) Epigastric pain: Code(s): R10.13 - Epigastric pain Status: Acute Assessment and Plan: Resolved (4) GERD (gastroesophageal reflux disease): Code(s): K21.9 - Gastro-esophageal reflux disease without esophagitis Status: Acute Assessment and Plan: PPI (5) Quadriplegia: Code(s): G82.50 - Quadriplegia, unspecified Status: Acute Assessment and Plan: Supportive care unclear etiology protein electrophoresis with M spike faint Immunofixation test ordered EMG nerve conduction study 03/02/2022: Abnormal absent response from left peroneal motor nerve patient had left fibular fracture on 01/22/2022 slight right sural sensory neuropathy. Absent response from right superficial peroneal nerve absence response from left median and ulnar sensory nerves suggestive of left median and ulnar sensory neuropathy abnormal right tibial motor nerve Paraneoplastic panel : High anti Hu low B1 B6 CT Chest : Mediastinal lymphadenopathy concerning for malignancy of indeterminate origin. Subcarinal nodule difficult to separate from the esophagus but also likely represents a lymph node. Endoscopy evaluation for esophagus recommended. 1.7 cm right adrenal nodule unclear etiology unsure what workup has been done at [facility] in the past. Everyone has opted for her to go back to [facility] for ongoing care and continued treatment/evaluation. We are still waiting for bed placement at [facility]. 04/29/2022 interval history: patient again pulled out her Dobbhoff, discussed with the speech therapist patient had a bedside swallow study again and recommended modified swallow study this time patient did pass and was recommended pureed diet, this should help, still waiting for the bed at [facility]. will continue to monitor and further recommendation to follow. (6) Hypothyroidism: Code(s): E03.9 - Hypothyroidism, unspecified Status: Acute Assessment and Plan: Continue levothyroxine, follow-up outpatient for further management TSH mildly high at 6.8 (7) UTI (urinary tract infection): Qualifiers: Hematuria presence: without hematuria Urinary tract infection type: acute cystitis Qualified Code(s): N30.00 - Acute cystitis without hematuria Code(s): N39.0 - Urinary tract infection, site not specified Status: Acute Assessment and Plan: Completed course of Rocephin (8) Mediastinal lymphadenopathy: Code(s): R59.0 - Localized enlarged lymph nodes Status: Acute Assessment and Plan: Scheduled for endoscopic ultrasound biopsy at [facility] 04/15, had to be put on hold, transfer pending patient supposedly has positive lung cancer markers and is scheduled to follow-up with pulmonology at [facility] later this month (9) Hyponatremia: Code(s): E87.1 - Hypo-osmolality and hyponatremia Status: Acute Assessment and Plan: Mild stable Plan DVT prophylaxis with SCDs GI prophylaxis with PPI Code status full code Subjective Date/time seen: 04/29/22 17:02 Interval history: overnight she removed her Dobbhoff accidentally. This is already been replaced and tub
[2022-04-29] MEDS: POTASSIUM CHLORIDE 20 MEQ PACKET (FOR LIQUID) 40 MEQ FEED TUBE (17:21)
[2022-04-29 18:51] LABS: Glucose Point of Care 105 mg/dl (65-105)
[2022-04-29 20:25] VITALS: PULSE 68
[2022-04-29] MEDS: busPIRone HCL 10 MG TABLET FEED TUBE (20:25)
[2022-04-29] MEDS: METOPROLOL TARTRATE 25 MG TABLET FEED TUBE (20:25)
[2022-04-29] MEDS: FAMOTIDINE 20 MG TABLET FEED TUBE (20:25)
[2022-04-29] MEDS: LORazepam INJ (*CRX) 2 MG/ML VIAL 1 MG IV PUSH (20:31)
[2022-04-29 21:41] VITALS: BP 108/64; PULSE 102; RESP 14; TEMP 36.3; O2SAT 95
[2022-04-30] MEDS: LEVOTHYROXINE SODIUM 150 MCG TABLET FEED TUBE (05:51)
[2022-04-30 06:00] VITALS: BP 130/90; PULSE 94; RESP 14; TEMP 36.6; O2SAT 96
[2022-04-30] MEDS: LORazepam INJ (*CRX) 2 MG/ML VIAL 1 MG IV PUSH (06:20)
[2022-04-30 07:36] LABS: Glucose Point of Care 107 mg/dl (65-105)
[2022-04-30] MEDS: PANTOPRAZOLE SODIUM IV 40 MG VIAL IV PUSH (08:42)
[2022-04-30] MEDS: MORPHINE SULFATE (*CRX) 2 MG/ML INJ IV PUSH (08:42)
[2022-04-30] MEDS: THIAMINE HCL 100 MG TABLET FEED TUBE (08:44)
[2022-04-30] MEDS: METOPROLOL TARTRATE 25 MG TABLET FEED TUBE (08:44)
[2022-04-30] MEDS: FOLIC ACID 1 MG TABLET FEED TUBE (08:44)
[2022-04-30] MEDS: busPIRone HCL 10 MG TABLET FEED TUBE (08:44)
[2022-04-30] MEDS: FAMOTIDINE 20 MG TABLET FEED TUBE (08:44)
[2022-04-30] MEDS: ATORVASTATIN 40 MG TABLET FEED TUBE (08:44)
[2022-04-30] MEDS: POTASSIUM CHLORIDE 20 MEQ PACKET (FOR LIQUID) 40 MEQ FEED TUBE (08:44)
--- NOTE | 2022-04-30 10:55 | PM.DS ---
DS: Admitting Diagnosis Discharge Date 04/30/2022 Admitting Diagnosis epigastric pain DS: Discharge Diagnosis Discharge Diagnosis (1) Anxiety: Code(s): F41.9 - Anxiety disorder, unspecified Status: Acute Assessment and Plan: Ativan as needed Worsened with the discovery of lice restart buspirone and duloxetin (if can be given via feeding tube) (2) Dysphagia: Code(s): R13.10 - Dysphagia, unspecified Status: Acute Assessment and Plan: Failed MBS, transfer pending to [facility] Concern for underlying malignancy due to mediastinal lymphadenopathy, workup pending via [facility], records pending Concern for underlying neurological etiology possible? scheduled to see neurology as an outpatient follow-up at [facility] Tube feedings via Dobhoff Brain MRI within normal limits Dobbhoff replaced and reinitiated tube feeds (3) Epigastric pain: Code(s): R10.13 - Epigastric pain Status: Acute Assessment and Plan: Resolved (4) GERD (gastroesophageal reflux disease): Code(s): K21.9 - Gastro-esophageal reflux disease without esophagitis Status: Acute Assessment and Plan: PPI (5) Quadriplegia: Code(s): G82.50 - Quadriplegia, unspecified Status: Acute Assessment and Plan: Supportive care unclear etiology protein electrophoresis with M spike faint Immunofixation test ordered EMG nerve conduction study 03/02/2022: Abnormal absent response from left peroneal motor nerve patient had left fibular fracture on 01/22/2022 slight right sural sensory neuropathy. Absent response from right superficial peroneal nerve absence response from left median and ulnar sensory nerves suggestive of left median and ulnar sensory neuropathy abnormal right tibial motor nerve Paraneoplastic panel : High anti Hu low B1 B6 CT Chest : Mediastinal lymphadenopathy concerning for malignancy of indeterminate origin. Subcarinal nodule difficult to separate from the esophagus but also likely represents a lymph node. Endoscopy evaluation for esophagus recommended. 1.7 cm right adrenal nodule unclear etiology unsure what workup has been done at [facility] in the past. Everyone has opted for her to go back to [facility] for ongoing care and continued treatment/evaluation. We are still waiting for bed placement at [facility]. 04/29/2022 interval history: patient again pulled out her Dobbhoff, discussed with the speech therapist patient had a bedside swallow study again and recommended modified swallow study this time patient did pass and was recommended pureed diet, this should help, still waiting [facility] the bed [facility]. will continue to monitor and further recommendation to follow. (6) Hypothyroidism: Code(s): E03.9 - Hypothyroidism, unspecified Status: Acute Assessment and Plan: Continue levothyroxine, follow-up outpatient for further management TSH mildly high at 6.8 (7) UTI (urinary tract infection): Qualifiers: Hematuria presence: without hematuria Urinary tract infection type: acute cystitis Qualified Code(s): N30.00 - Acute cystitis without hematuria Code(s): N39.0 - Urinary tract infection, site not specified Status: Acute Assessment and Plan: Completed course of Rocephin (8) Mediastinal lymphadenopathy: Code(s): R59.0 - Localized enlarged lymph nodes Status: Acute Assessment and Plan: Scheduled for endoscopic ultrasound biopsy at [facility] 04/15, had to be put on hold, transfer pending patient supposedly has positive lung cancer markers and is scheduled to follow-up with pulmonology at [facility] later this month (9) Hyponatremia: Code(s): E87.1 - Hypo-osmolality and hyponatremia Status: Acute Assessment and Plan: Mild stable Plan DVT prophylaxis with SCDs GI prophylaxis with PPI Code status full code DS: Summary Hospital Course Reason for hospitalization:
== END 2022-04-30 11:59 | disposition home or self-care (01) | DRG 136 ==
LOC: ANHED 22:12 → ANH3MEDSUR 22:25
PROVIDERS: Chiropractor; Emergency Medicine; Internal Medicine; Internal Medicine Nephrology; Physician Assistant; Student in an Organized Health Care Education/Training Program; Admitting Provider Internal Medicine; Emergency Provider Emergency Medicine; PCP Physician Assistant; Visit Provider Family Medicine
DX: C38.3 Malignant neoplasm of mediastinum, part unspecified (principal); G82.50 Quadriplegia, unspecified; N30.00 Acute cystitis without hematuria; E87.1 Hypo-osmolality and hyponatremia; R13.10 Dysphagia, unspecified; R59.0 Localized enlarged lymph nodes; B85.0 Pediculosis due to Pediculus humanus capitis; E03.9 Hypothyroidism, unspecified; E11.9 Type 2 diabetes mellitus without complications; E87.6 Hypokalemia; Z20.822 Contact with and (suspected) exposure to COVID-19; Z74.01 Bed confinement status; J44.9 Chronic obstructive pulmonary disease, unspecified; M79.7 Fibromyalgia; K21.9 Gastro-esophageal reflux disease without esophagitis; M48.062 Spinal stenosis, lumbar region with neurogenic claudication; Z83.3 Family history of diabetes mellitus; Z82.49 Family history of ischemic heart disease and other diseases of the circulatory system; K90.0 Celiac disease; F41.9 Anxiety disorder, unspecified; F17.210 Nicotine dependence, cigarettes, uncomplicated; J39.2 Other diseases of pharynx; G89.4 Chronic pain syndrome; Z79.84 Long term (current) use of oral hypoglycemic drugs; Z79.899 Other long term (current) drug therapy; Z88.5 Allergy status to narcotic agent; Z88.0 Allergy status to penicillin; Z88.2 Allergy status to sulfonamides; Z91.041 Radiographic dye allergy status; Z86.010 Personal history of colon polyps; Z75.1 Person awaiting admission to adequate facility elsewhere
CPT/HCPCS: 36415; 36569; 43752; 70450; 70551; 71045; 74220; 80048; 80053; 80069; 81001; 82533; 82570; 82948; 83690; 83735; 83930; 83935; 84132; 84155; 84165; 84300; 84439; 84443; 84480; 84484; 85025; 85055; 85610; 85730; 86334; 86335; 87077; 87086; 87088; 87186; 87502; 92610; 92611; 93005; 96361; 96365; 96366; 96367; 96375; 96376; 99285; A9270; C1751; C9113; G0378; G0379; J0131; J0696; J2060; J2270; J2997; J3475; J3480; J7030; J7040; U0003; U0005

== ENCOUNTER 2022-05-01 12:35 | Emergency (ER) | payer OTHER, SELFPAY ==
--- NOTE | ~2022-05-01 | XR_ITS ---
XR chest 1V portable DATE: 05/01/2022 13:10 INDICATION: Chest pain TECHNIQUE: Portable upright AP chest on 05/01/2022 at 1307 hours COMPARISON: 04/11/2022 portable AP chest FINDINGS: Heart size is not optimally evaluated on AP projection because of magnification. No pulmona ry infiltrate or consolidation, pleural effusion or pulmonary vascular congestion or pneumothorax is detected. IMPRESSION: No active pulmonary disease Reviewed, dictated and finalized at location A. ENT EDUCATION SPECIALIST IMPRESSION: No active pulmonary disease
[2022-05-01 12:41] VITALS: BP 122/83; PULSE 89; RESP 18; TEMP 36.9; O2SAT 97
--- NOTE | 2022-05-01 12:41 | ECG_ITS ---
Measurements Intervals [place] Rate: 90 P: 32 PA: 150 QRS: -19 QRSD: 86 T: -14 QT: 356 QTc: 436 Interpretive Statements SINUS RHYTHM VOLTAGE CRITERIA FOR LVH INFERIOR INFARCT, AGE INDETERMINATE BORDERLINE ST-T WAVE ABNORMALITY- ANTEROLATERAL LEADS BASELINE ARTIFACT- I, II, III, AVR, AVL, AVF, V4-V6 ABNORMAL ECG COMPARED TO ECG 04/11/2022 17:40:06 NO SIGNIFICANT CHANGES Electronically Signed On 05-01-2022 16:01:44 [employer] by Kota Martin D.O.
--- NOTE | 2022-05-01 12:48 | ED.CHESTPAIN ---
HPI - Chest Pain General Chief Complaint: Chest Pain Stated Complaint: CP SINCE 1200 Time Seen by Provider: 05/01/22 12:38 History of Present Illness HPI narrative: Patient is a 61-year-old female with a history of hypothyroidism, neurodegenerative disease, wheelchair-bound, fibromyalgia, hyperlipidemia, GERD presenting with chest pain. Patient was recently admitted for dehydration and was discharged back to her nursing facility yesterday. Patient states that today she developed chest pain that she says is 8 out of 10 in intensity. States she has had pain like this in the past. States that she also feels short of breath. States that she has had a cough as well. Denies fevers, headache, abdominal pain, vomiting, diarrhea. Patient has Jara catheter in place. Related Data Home Medications Medication Instructions Recorded Confirmed oxybutynin chloride 5 mg tablet 5 mg PO DAILY 07/04/19 04/12/22 folic acid 1 mg tablet 1 mg PO DAILY 02/28/20 04/12/22 levothyroxine 150 mcg tablet 150 mcg PO DAILY 02/28/20 04/12/22 (Euthyrox) metoprolol tartrate 25 mg tablet 25 mg PO BID 02/28/20 04/12/22 atorvastatin 40 mg tablet 40 mg PO DAILY 04/11/22 04/12/22 buspirone 10 mg tablet 10 mg PO DAILY 04/11/22 04/12/22 metformin 500 mg tablet,extended 500 mg PO 1XD 04/11/22 04/12/22 release 24 hr pregabalin 200 mg capsule 200 mg PO TID 04/11/22 04/12/22 methocarbamol 500 mg tablet 1,500 mg PO BID 04/16/22 04/23/22 Allergies Allergy/AdvReac Type Severity Reaction Status Date / Time codeine Allergy Unknown Unknown Verified 04/11/22 17:47 morphine Allergy Unknown Unknown Verified 04/11/22 17:47 Penicillins Allergy Unknown Unknown Verified 04/11/22 17:47 Sulfa (Sulfonamide Allergy Unknown Unknown Verified 04/11/22 17:47 Antibiotics) Contrast Media Allergy Unknown VOMITING Uncoded 04/11/22 17:47 Review of Systems Review of Systems: All systems reviewed & are unremarkable except as noted in HPI and below PMFSH Past Medical History Medical History Acquired hypothyroidism Arthritis Blindness Bowel obstruction Celiac disease Chronic low back pain with sciatica Chronic pain Chronic pain syndrome COPD (chronic obstructive pulmonary disease) Diverticulitis Diverticulitis Encounter for screening for lipoid disorders Encounter for screening for other metabolic disorders Endometriosis Fall Fibromyalgia Fibromyalgia Gallstones GERD (gastroesophageal reflux disease) History of anesthesia problem History of renal dialysis Hoarseness of voice Hyponatremia Hypothyroidism Kidney disease Lumbar stenosis with neurogenic claudication Nausea Neurological disease Numbness in both hands Other chronic pain Pain in left hand Peripheral neuropathy Polyneuropathy PUD (peptic ulcer disease) Recurrent UTI Skin lesion Spinal stenosis Throat mass Tobacco use Trigger finger, left ring finger Uses walker Uterine cancer UTI (urinary tract infection) UTI (urinary tract infection), bacterial Wears glasses Surgical History Surgical History H/O laparoscopy H/O: hysterectomy History of appendectomy History of History of carpal tunnel surgery Family History Family History Other Arthritis Diabetes mellitus Heart disease Hypertension Lung disease Social History Social History Smoking packs per day: 0.3 Smoking cigarettes per day: 6.0 Years smoked: 47 Smoking pack-years: 14.10 Smoking status: Current every day smoker Tobacco type: cigarettes Alcohol intake: never Substance use: never Substance use type: does not use Lack of Transportation: No Lack of Food: Never True Current Housing: I Have Housing Concerned About Future Housing: No Difficulty Paying Gas/Electric Bills: No
--- NOTE | 2022-05-01 12:50 | PC.NURSE ---
[facility] ERP DR FAGAN TO ADD ON UA FROM PT CATH.ALSO NOTIFIED ERP THAT PT WAS GIVEN 4 ASA TIP MENDER BY EMS .
[2022-05-01 12:54] LABS: Basophils Percent Auto 0.7 % (0.2-1.2); Eosinophils Absolute Auto 0.3 K/mm3 (0-0.3); Eosinophils Percent Auto 5.7 % (0-4.4); Hematocrit 42.9 % (37.0-47.0); Hemoglobin 14.3 g/dL (12.0-15.0); Immature Granulocyte Absolute 0.05 K/mm3 (0.00-0.031); Immature Granulocyte Percent A 0.9 % (0-0.5); Lymphocytes Absolute Auto 1.03 K/mm3 (0.9-3.2); Lymphocytes Percent Auto 17.9 % (18.3-44.2); Mean Corpuscular HGB Conc 33.3 g/dl (32-36); Mean Corpuscular Hemoglobin 32.1 pg (26-34); Mean Corpuscular Volume 96.4 fl (80-100); Mean Platelet Volume 9.3 fl (7.4-10.4); Monocytes Absolute Auto 0.4 K/mm3 (0.1-0.6); Monocytes Percent Auto 6.6 % (2.6-8.5); Neutrophils Absolute Auto 3.9 K/mm3 (1.3-6.7); Neutrophils Percent Auto 68.2 % (45.5-73.1); Platelet Count Result 303 k/mm3 (150-375); Red Blood Count 4.45 M/mm3 (4.2-5.4); White Blood Count 5.8 K/mm3 (4.5-10.0)
[2022-05-01 13:05] LABS: Appearance Urine Cloudy (Clear); Bilirubin Urine 1+ (Negative); Blood Urine 2+ (Negative); Color Urine Dark Yellow (Yellow); Glucose Urine UA Negative (Negative); Ketones Urine Negative (Negative); Leukocyte Esterase Ur 1+ LEU/UL (Negative); Nitrate Urine Negative (Negative); Protein Urine 2+ mg/dL (Negative); Specific Grav Ur >= 1.030 (1.001-1.035); Urobilinogen Urine 0.2 mg/dL (<2.0)
[2022-05-01 13:07] LABS: Partial Thromboplastin Time 25.2 SECONDS (22.3-36.8); Prothrombin Time 12.7 Seconds (11.1-14.7)
[2022-05-01 13:12] LABS: Bacteria Urine 4+ /hpf; Calcium Oxalate Crystals Urine Present /hpf; Mucus Urine Heavy /lpf; RBC Urine 21-50 /hpf (0-2); Squamous Epithelial Cell Urine Few /hpf (Few); WBC Clumps Urine Present /HPF; WBC Urine >75 /hpf
[2022-05-01 13:19] LABS: Add Urine Microscopic? YES
[2022-05-01 13:23] LABS: Alanine Aminotransferase 69 U/L (6-35); Albumin Level 4.2 g/dL (3.5-5.1); Alkaline Phosphatase 119 U/L (38-126); Anion Gap 10 mmol/L (8-16); Aspartate Amino Transferase 33 U/L (14-36); Bilirubin,Total 0.8 mg/dL (0.2-1.3); Blood Urea Nitrogen 24 mg/dL (7-17); Calcium 9.1 mg/dL (8.4-10.2); Carbon Dioxide 24 mmol/L (22-30); Chloride 101 mmol/L (98-107); Estimated CRCL calculation 112 ml/min; Estimated Glomerular Filt Rate > 60; Glucose 110 mg/dL (65-110); Lipase 65 U/L (23-300); Potassium 4.1 mmol/L (3.4-5.0); Sodium 135 mmol/L (137-145)
[2022-05-01] MEDS: NITROGLYCERIN SL 0.4 MG TABLET SUBLINGUAL (13:30)
[2022-05-01 13:35] LABS: Troponin I < 0.012 ng/mL (0.000-0.034)
[2022-05-01] MEDS: SODIUM CHLORIDE 0.9% IV 1,000 ML 999 ML IV CONT (13:36)
[2022-05-01 14:34] LABS: Influenza A QL RT-PCR Negative (Negative); Influenza B QL RT-PCR Negative (Negative); RSV RNA, RT-PCR Negative (Negative); SARS-CoV-2 RNA PCR Negative
[2022-05-01 15:10] VITALS: BP 131/79; PULSE 83; RESP 18; O2SAT 98
[2022-05-01] MEDS: LORazepam (*CRX) 0.5 MG TABLET PO (16:01)
== END 2022-05-01 17:31 | disposition home or self-care (01) ==
PROVIDERS: Emergency Provider Emergency Medicine; PCP Physician Assistant
DX: R07.89 Other chest pain (principal); N39.0 Urinary tract infection, site not specified; Z20.822 Contact with and (suspected) exposure to COVID-19; E78.5 Hyperlipidemia, unspecified; E03.9 Hypothyroidism, unspecified; J44.9 Chronic obstructive pulmonary disease, unspecified; M79.7 Fibromyalgia; M19.90 Unspecified osteoarthritis, unspecified site; K21.9 Gastro-esophageal reflux disease without esophagitis; K90.0 Celiac disease; G31.9 Degenerative disease of nervous system, unspecified; G62.9 Polyneuropathy, unspecified; N28.9 Disorder of kidney and ureter, unspecified; F17.210 Nicotine dependence, cigarettes, uncomplicated; Z85.42 Personal history of malignant neoplasm of other parts of uterus; Z87.11 Personal history of peptic ulcer disease; Z99.3 Dependence on wheelchair; Z79.84 Long term (current) use of oral hypoglycemic drugs; Z90.710 Acquired absence of both cervix and uterus; R94.31 Abnormal electrocardiogram [ECG] [EKG]
CPT/HCPCS: 36415; 71045; 80053; 81001; 83690; 84484; 85025; 85610; 85730; 87077; 87086; 87186; 87637; 93005; 96361; 96365; 99284; A9270; J0696; J7030